=== PATIENT | male | born 1965 | race Caucasian/White ===

== ENCOUNTER 2016-12-26 15:46 | Emergency (ER) | payer BC ==
[2016-12-26 16:11] VITALS: RESP 18
[2016-12-26] MEDS ORDERED: HYDROcodone/APAP 7.5-325MG 1 EACH TAB PO ONE (17:08)
--- NOTE | 2016-12-26 18:04 | XR ---
EXAMINATION TYPE: XR knee complete LT DATE OF EXAM: 12/26/2016 CLINICAL HISTORY: Pain in left knee. TECHNIQUE: Three views of the left knee are obtained. COMPARISON: None. FINDINGS: There is a large suprapatellar joint effusion which has increased density which could be du e to lipohemarthrosis. There is mineralized focus along the superior aspect of the patella which coul d relate to a small avulsion fracture or calcific tendinitis at the insertion of quadriceps tendon. J oint spacing is maintained in all 3 compartments. Soft tissue structures demonstrates some soft tissu e swelling superior to the patella. IMPRESSION: Large hyperdense suprapatellar joint effusion which could be due to a lipohemarthrosis. There is also a mineralized focus along the superior aspect of the patella which could relate to an avulsion fract ure or calcific tendinitis.
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
[2016-12-26 18:43] VITALS: BP 124/74; PULSE 71; TEMP 98
== END 2016-12-26 18:43 | disposition home or self-care (01) ==
LOC: EC 15:46
DX: S82.002A Unspecified fracture of left patella, initial encounter for closed fracture (principal); M25.462 Effusion, left knee; F17.200 Nicotine dependence, unspecified, uncomplicated; Z95.5 Presence of coronary angioplasty implant and graft; Z79.82 Long term (current) use of aspirin; Z79.899 Other long term (current) drug therapy; W23.0XXA Caught, crushed, jammed, or pinched between moving objects, initial encounter; Y93.55 Activity, bike riding
CPT/HCPCS: 99283 ×2; 73562; L1830

== ENCOUNTER 2017-04-14 19:53 | Emergency (ER) | payer BC ==
[2017-04-14 19:58] VITALS: BP 148/87; PULSE 67; RESP 20; TEMP 97.8
[2017-04-14] MEDS ORDERED: cefTRIAXone 1,000 MG VIAL (IM USE) IM STA (22:17)
--- NOTE | 2017-04-14 22:24 | ED ---
General Adult HPI - General Chief complaint: Wound/Laceration Stated complaint: foot infection/sore leg Time Seen by Provider: 04/14/17 22:07 Source: patient, RN notes reviewed Mode of arrival: ambulatory Limitations: no limitations - History of Present Illness Initial comments: This is a 51-year-old male who presents to the emergency department with chief complaint of left foot sore. Patient states that he developed a sore on the bottom of his left foot one week ago. He is unsure if he had any injury to that foot. He states that he developed a pocket of pus which he has drained on his own. He denies any fevers or chills. He denies any history of MRSA. He states he does not have diabetes. He does have hypertension and a defibrillator for hypertrophic cardiomyopathy. Patient states he presented to the emergency department this evening because he has noticed some streaking of redness up his left foot. Denies chest pain, shortness of breath, abdominal pain, nausea or vomiting, diarrhea or constipation. - Related Data Home Medications Medication Instructions Recorded Confirmed Aspirin 325 mg PO DAILY 04/23/14 06/03/14 Metoprolol Succinate (ER) [Toprol 150 mg PO DAILY 04/23/14 06/03/14 XL] amLODIPine [Norvasc] 5 mg PO DAILY 04/23/14 06/03/14 lamoTRIgine [LaMICtal] 100 mg PO DAILY 04/23/14 06/03/14 Carisoprodol [Soma] 350 mg PO TID 06/04/14 06/04/14 Hydrocodone/Acetaminophen [Vicodin 1 each PO Q8HR PRN 06/04/14 06/04/14 Es 7.5-300 mg Tablet] Ibuprofen [Motrin] 800 mg PO Q8HR PRN 06/04/14 06/04/14 Previous Rx's Medication Instructions Recorded Cephalexin [Keflex] 500 mg PO Q12HR #20 cap 04/14/17 Sulfamethox-Tmp 800-160Mg [Bactrim 1 tab PO Q12HR #20 tab 04/14/17 DS 800-160 mg] Allergies Allergy/AdvReac Type Severity Reaction Status Date / Time No Known Allergies Allergy Verified 04/14/17 19:57 Review of Systems ROS Statement: Those systems with pertinent positive or pertinent negative responses have been documented in the HPI. ROS Other: All systems not noted in ROS Statement are negative. Past Medical History Past Medical History: Hyperlipidemia Additional Past Medical History / Comment(s): see Dr Brewer H&P, defibulator, HCM History of Any Multi-Drug Resistant Organisms: None Reported Past Surgical History: Heart Catheterization, Orthopedic Surgery Additional Past Surgical History / Comment(s): heart cath Apr 2014 Past Anesthesia/Blood Transfusion Reactions: No Reported Reaction Past Psychological History: No Psychological Hx Reported Smoking Status: Current some day smoker Past Alcohol Use History: Occasional Past Drug Use History: None Reported General Exam - General Exam Comments Initial Comments: General: Awake and alert, well-developed; in no apparent distress. HEENT: Head atraumatic, normocephalic. Pupils are equal, round and reactive to light. Extraocular movements intact. Oropharynx moist without erythema or exudate. Neck: Supple. Normal ROM. Cardiovascular: Regular rate and rhythm. No murmurs, rubs or gallops. Chest symmetrical. Respiratory: Lungs clear to auscultation bilaterally. No wheezes, rales or rhonchi. Normal respiratory effort with no use of accessory muscles. Musculoskeletal: Normal ROM, no tenderness bilateral upper and lower extremities. Ambulating normally. Skin: [place], warm and dry. Pocket of blood between digits 3 and 4 on the left foot. No active drainage at this time. There is surrounding erythema and tenderness with some streaking up dorsal aspect mid left foot. Neurological: Alert and oriented x3. CN II-XII grossly intact. Speech is fluent and answers are appropriate. No focal neuro deficits. Psychiatric: Normal mood and affect. No overt signs of depression or anxiety noted. Limitations: no limitations Course Vital Signs 04/14/17 19:55 Temperature 97.8 F Pulse Rate 67 Respiratory 20 Rate Blood Pressure 148/87 O2 Sat by Pulse 98 Oximetry Medical Decision Making - Medical Decision Making This is a 51-year-old male who presents to the emergency department with chief complaint of left foot infection. Patient has no history of diabetes. Denies a history of MRSA. He states that he has had a left foot sore for the past one week but is unsure of any injury or trauma to the foot. Denies fever or chills. X-ray of left foot revealed no evidence for foreign body and no evidence for osteomyelitis. Patient was given IM Rocephin while in the emergency department. Recommended outpatient treatment with antibiotics. Educated patient that if he develops any fevers or if the redness spreads that he is to return to the emergency department. Recommended warm soaks at home. Patient is in no acute distress and will be discharged home. He is in agreement with plan and voices understanding. All questions were answered. - Radiology Data Radiology results: report reviewed X-ray left foot findings: I see no fracture nor dislocation. Metatarsals are intact. Joint spaces are fairly normal. There are no erosions. Fourth toe is intact. Impression: Negative left foot exam. No sign of osteomyelitis. Disposition Clinical Impression: Cellulitis of left foot Disposition: HOME SELF-CARE Condition: Good Instructions: Cellulitis (ED), Abscess (ED) Additional Instructions: Please take medications as prescribed. Please return to the emergency department if you develop any fevers or redness continues to spread. Please follow up with primary care provider within 1-2 days. Return to emergency department if symptoms should worsen or any concerns arise. Prescriptions: Cephalexin [Keflex] 500 mg PO Q12HR #20 cap Sulfamethox-Tmp 800-160Mg [Bactrim DS 800-160 mg] 1 tab PO Q12HR #20 tab Referrals: Reji Hayward MD [Primary Care Provider] - 1-2 days Time of Disposition: 22:48
--- NOTE | 2017-04-14 22:42 | XR ---
EXAMINATION TYPE: XR foot complete LT DATE OF EXAM: 04/14/2017 COMPARISON: NONE HISTORY: Redness and swelling TECHNIQUE: 3 views FINDINGS: I see no fracture nor dislocation. Metatarsals are intact. Joint spaces are fairly normal. There are no erosions. Fourth toe is intact. IMPRESSION: Negative left foot exam. No sign of osteomyelitis.
== END 2017-04-14 22:57 | disposition home or self-care (01) ==
LOC: EC 19:53
DX: L03.116 Cellulitis of left lower limb (principal); I10 Essential (primary) hypertension; F17.200 Nicotine dependence, unspecified, uncomplicated; Z95.5 Presence of coronary angioplasty implant and graft; Z95.810 Presence of automatic (implantable) cardiac defibrillator; Z79.82 Long term (current) use of aspirin; Z79.899 Other long term (current) drug therapy
CPT/HCPCS: 99283; 96372; 73630; J0696

== ENCOUNTER 2017-04-15 17:00 | Emergency (ER) | payer BC ==
[2017-04-15 17:08] VITALS: RESP 18
[2017-04-15] MEDS ORDERED: VANCOMYCIN IV PER PHARMACY 1 EACH MISC MISCELLANE PRN (17:51)
[2017-04-15] MEDS ORDERED: VANCOMYCIN 2,000 MG in SODIUM CHLORIDE 0.9% 500 ML IVPB STA (17:52)
--- NOTE | 2017-04-15 17:55 | ED ---
Skin/Abscess/FB HPI - General Chief complaint: Skin/Abscess/Foreign Body Stated complaint: Pain in Left Leg Time Seen by Provider: 04/15/17 17:37 Source: patient, RN notes reviewed, old records reviewed Mode of arrival: ambulatory Limitations: no limitations - History of Present Illness Initial comments: This is a 51-year-old male with left foot pain and swelling for approximately 12 days. He reports that he was seen in emergency department yesterday given IM antibiotics and discharged home with 2 prescriptions. He reports he started to take them for left foot cellulitis that he is concerned because he noticed a swelling in his left groin. Patient reports that he noticed some bleeding around the fourth and fifth toe. - Related Data Home Medications Medication Instructions Recorded Confirmed Metoprolol Succinate (ER) [Toprol 150 mg PO DAILY 04/23/14 04/15/17 XL] amLODIPine [Norvasc] 5 mg PO DAILY 04/23/14 04/15/17 Previous Rx's Medication Instructions Recorded Cephalexin [Keflex] 500 mg PO Q12HR #20 cap 04/14/17 Sulfamethox-Tmp 800-160Mg [Bactrim 1 tab PO Q12HR #20 tab 04/14/17 DS 800-160 mg] Acetaminophen-Codeine 300-30mg 1 tab PO Q4H PRN #20 tablet 04/15/17 [Tylenol #3] Allergies Allergy/AdvReac Type Severity Reaction Status Date / Time No Known Allergies Allergy Verified 04/15/17 18:02 Review of Systems ROS Statement: Those systems with pertinent positive or pertinent negative responses have been documented in the HPI. ROS Other: All systems not noted in ROS Statement are negative. Past Medical History Past Medical History: Hyperlipidemia Additional Past Medical History / Comment(s): see Dr Brewer H&P, defibulator, HCM History of Any Multi-Drug Resistant Organisms: None Reported Past Surgical History: Heart Catheterization, Orthopedic Surgery Additional Past Surgical History / Comment(s): heart cath Apr 2014 Past Anesthesia/Blood Transfusion Reactions: No Reported Reaction Past Psychological History: No Psychological Hx Reported Smoking Status: Current some day smoker Past Alcohol Use History: Occasional Past Drug Use History: None Reported General Exam - General Exam Comments Initial Comments: This is a 51-year-old male. No acute distress. Limitations: no limitations General appearance: alert, in no apparent distress Head exam: Present: atraumatic, normocephalic, normal inspection Eye exam: Present: normal appearance, PERRL, EOMI. Absent: scleral icterus, conjunctival injection, periorbital swelling ENT exam: Present: normal exam, mucous membranes moist Neck exam: Present: normal inspection. Absent: tenderness, meningismus, lymphadenopathy Respiratory exam: Present: normal lung sounds bilaterally. Absent: respiratory distress, wheezes, rales, rhonchi, stridor Cardiovascular Exam: Present: regular rate, normal rhythm, normal heart sounds. Absent: systolic murmur, diastolic murmur, rubs, gallop, clicks GI/Abdominal exam: Present: soft, normal bowel sounds. Absent: distended, tenderness, guarding, rebound, rigid Extremities exam: Present: normal inspection, full ROM, normal capillary refill. Absent: tenderness, pedal edema, joint swelling, calf tenderness Left 1 - mild erythema 1 - area of blood blister Back exam: Present: normal inspection Neurological exam: Present: alert, oriented X3, CN II-XII intact Psychiatric exam: Present: normal affect, normal mood Skin exam: Present: warm, dry, intact, normal color. Absent: rash Course Vital Signs 04/15/17 04/15/17 17:05 20:37 Temperature 98.9 F 97.6 F Pulse Rate 69 86 Respiratory 18 18 Rate Blood Pressure 160/89 146/79 O2 Sat by Pulse 98 98 Oximetry Medical Decision Making - Medical Decision Making patient iced for reevaluation due to swelling and pain on his left dorsum of his foot in between his fourth and third toe. He reports that he is noticed a blister and pain is worsening in his left toes having also is concerned of some swelling on his groin. This is a inguinal lymph node. He did have an ultrasound was negative for DVT. White blood cell count is within normal limits. I discussed with the patient on IV antibiotics of vancomycin due to likely cellulitis. They do relate that he possibly stepped on glass [place] 12 days ago and there may be a glass shard in between the toes. One view of the foot x-ray does show evidence of a possible foreign body at this time near patient's location of pain. I did attempt to try to locate any kind of foreign body vitamin D breathing initially her skin over the dorsum of the foot. Unable to locate any foreign by this time. I discussed that he is not technically failed outpatient treatment if he has had only 2 doses of antibiotics. Discussed with Dr. Mullins. He is also examined the patient and agrees with treatment plan. We will have the patient follow-up with podiatry, and advised him to stay take the antibiotics as prescribed. We'll discharge the patient with pain medicine as well. All questions were answered and return parameters were discussed. - Lab Data Result diagrams: 04/15/17 18:06 04/15/17 18:06 Lab Results 04/15/17 04/15/17 Range/Units 18:06 18:06 WBC 11.9 H (3.8-10.6) k/uL RBC 5.52 (4.30-5.90) m/uL Hgb 16.3 (13.0-17.5) gm/dL Hct 49.4 (39.0-53.0) % MCV 89.5 (80.0-100.0) fL MCH 29.5 (25.0-35.0) pg MCHC 32.9 (31.0-37.0) g/dL RDW 12.8 (11.5-15.5) % Plt Count 262 (150-450) k/uL Neutrophils % 67 % Lymphocytes % 21 % Monocytes % 5 % Eosinophils % 5 % Basophils % 1 % Neutrophils # 7.9 H (1.3-7.7) k/uL Lymphocytes # 2.5 (1.0-4.8) k/uL Monocytes # 0.6 (0-1.0) k/uL Eosinophils # 0.6 (0-0.7) k/uL Basophils # 0.1 (0-0.2) k/uL Sodium 140 (137-145) mmol/L Potassium 4.3 (3.5-5.1) mmol/L Chloride 105 (98-107) mmol/L Carbon Dioxide 23 (22-30) mmol/L Anion Gap 12 mmol/L BUN 13 (9-20) mg/dL Creatinine 0.83 (0.66-1.25) mg/dL Est GFR (MDRD) Af Amer >60 (>60 ml/min/1.73 sqM) Est GFR (MDRD) Non-Af >60 (>60 ml/min/1.73 sqM) Glucose 114 H (74-99) mg/dL Calcium 10.2 (8.4-10.2) mg/dL Total Bilirubin 0.4 (0.2-1.3) mg/dL AST 40 (17-59) U/L ALT 88 H (21-72) U/L Alkaline Phosphatase 78 (38-126) U/L Total Protein 7.6 (6.3-8.2) g/dL Albumin 4.8 (3.5-5.0) g/dL - Radiology Data Radiology results: report reviewed X-ray shows no acute osseous normality. Follow-up exam can be performed in 7- 10 days from acute trauma for continued pain. Disposition Clinical Impression: Cellulitis of left foot, Soft tissues foreign body Disposition: HOME SELF-CARE Condition: Good Instructions: Soft Tissue Foreign Body (ED) Additional Instructions: Patient advised to do warm foot soaks. Follow up with sales operations. Return if the area of redness or swelling worsens. Take the antibiotics as prescribed previously. He can take the pain medicine as well as Motrin for pain. Return to the emergency department if any alarming signs or symptoms occur. Prescriptions: Acetaminophen-Codeine 300-30mg [Tylenol #3] 1 tab PO Q4H PRN #20 tablet PRN Reason: Pain Referrals: Reji Hayward MD [Primary Care Provider] - 1-2 days Ranjeet Figueroa DPM [STAFF PHYSICIAN] - 1-2 days Robert Sparks DPM [STAFF PHYSICIAN] - 1-2 days Time of Disposition: 20:06
[2017-04-15 18:23] LABS: Basophils # (A) 0.1 k/uL (0-0.2); Basophils % (A) 1 %; Eosinophils # (A) 0.6 k/uL (0-0.7); Eosinophils % (A) 5 %; HCT 49.4 % (39.0-53.0); HGB 16.3 gm/dL (13.0-17.5); Lymphocytes # (A) 2.5 k/uL (1.0-4.8); Lymphocytes % (A) 21 %; MCH 29.5 pg (25.0-35.0); MCHC 32.9 g/dL (31.0-37.0); MCV 89.5 fL (80.0-100.0); Mean Platelet Volume 6.5; Monocytes # (A) 0.6 k/uL (0-1.0); Monocytes % (A) 5 %; Neutrophils # (A) 7.9 k/uL (1.3-7.7); Neutrophils % (A) 67 %; Platelet Count 262 k/uL (150-450); RBC 5.52 m/uL (4.30-5.90); RDW 12.8 % (11.5-15.5); WBC 11.9 k/uL (3.8-10.6)
[2017-04-15 18:27] LABS: ALT 88 U/L (21-72); AST 40 U/L (17-59); Albumin 4.8 g/dL (3.5-5.0); Alkaline Phosphatase 78 U/L (38-126); Anion Gap 12 mmol/L; Blood Urea Nitrogen 13 mg/dL (9-20); Calcium 10.2 mg/dL (8.4-10.2); Carbon Dioxide 23 mmol/L (22-30); Chloride 105 mmol/L (98-107); Glucose 114 mg/dL (74-99); Potassium 4.3 mmol/L (3.5-5.1); Sodium 140 mmol/L (137-145); Total Bilirubin 0.4 mg/dL (0.2-1.3); Total Protein 7.6 g/dL (6.3-8.2)
--- NOTE | 2017-04-15 18:59 | XR ---
EXAMINATION TYPE: XR foot complete LT DATE OF EXAM: 04/15/2017 COMPARISON: 04/14/2017, previous day HISTORY: Pain swelling redness TECHNIQUE: Three-view left foot FINDINGS: There is deviation of the distal phalanx of the third digit medially. No acute fractures ar e identified. Some mild soft tissue swelling over the fourth digit may be present. IMPRESSION: 1. No acute osseous abnormality. 2. Follow-up exams can be performed 7-10 days from acute trauma for continued pain.
[2017-04-15] MEDS ORDERED: SODIUM CHLORIDE 0.9% 1,000 ML IV ONE (19:35)
[2017-04-15] MEDS ORDERED: SODIUM CHLORIDE 0.9% 1,000 ML IV SCH (19:45)
--- NOTE | 2017-04-15 19:46 | US ---
EXAMINATION TYPE: US venous doppler duplex LE LT DATE OF EXAM: 04/15/2017 7:16 PM COMPARISON: NONE CLINICAL HISTORY: Pain. Pt has infection and pain left foot, now has pain and lump left groin/ No jose francisco or DVT, not on blood thinners SIDE PERFORMED: Left TECHNIQUE: The lower extremity deep venous system is examined utilizing real time linear array sonog [place] with graded compression, doppler sonography and color-flow sonography. VESSELS IMAGED: External Iliac Vein (EIV) Common Femoral Vein Deep Femoral Vein Greater Saphenous Vein * Femoral Vein Popliteal Vein Small Saphenous Vein * Proximal Calf Veins (* superficial vessels) Left Leg: Negative for DVT, left groin lymph node= 1.3 cm AP/ Pt unable to tolerate left groin compr essions IMPRESSION: 1. Left lower extremity negative for deep venous thrombosis. 2. Enlarged left inguinal adenopathy with a transverse dimension of 1.3 cm.
[2017-04-15] MEDS ORDERED: ACET/COD 300 MG/30 MG STARTER PACK 6 TAB BTL PO STA (20:06)
[2017-04-15 20:38] VITALS: BP 146/79; PULSE 86; TEMP 97.6
== END 2017-04-15 20:38 | disposition home or self-care (01) ==
LOC: EC 17:00
DX: L03.116 Cellulitis of left lower limb (principal); M79.5 Residual foreign body in soft tissue; M79.89 Other specified soft tissue disorders; F17.200 Nicotine dependence, unspecified, uncomplicated; Z79.899 Other long term (current) drug therapy; Z53.8 Procedure and treatment not carried out for other reasons
CPT/HCPCS: 36415; 80053; 85025; 87040; 87070; 87205; 73630; 93971; 99284; 96365; 96366; J3370; 87077; 87186

== ENCOUNTER 2018-03-15 08:41 | Day surgery (SDC) | payer BC ==
--- NOTE | 2018-03-15 07:34 | P.GSHP ---
History of Present Illness H&P Date: 03/15/18 CHIEF COMPLAINT: Colon screen HISTORY OF PRESENT ILLNESS: The patient is a 52-year-old male who presents for colon screen. Lower endoscopy was offered for further evaluation and management. PAST MEDICAL HISTORY: Please see list. PAST SURGICAL HISTORY: Please see list. MEDICATIONS: Please see list. ALLERGIES: Please see list. SOCIAL HISTORY: No illicit drug use FAMILY HISTORY: No reports of Crohn disease or ulcerative colitis. REVIEW OF ORGAN SYSTEMS: CONSTITUTIONAL: No reports of fevers or chills. PHYSICAL EXAM: VITAL SIGNS: Stable GENERAL: Well-developed pleasant in no acute distress. HEENT: No scleral icterus. Extraocular movements grossly intact. Moist buccal mucosa. NECK: Supple without lymphadenopathy. CHEST: Unlabored respirations. Equal bilateral excursions. CARDIOVASCULAR: Regular rate and rhythm. Distal 2+ pulses. ABDOMEN: Soft, nontender, nondistended. MUSCULOSKELETAL: No clubbing, cyanosis, or edema. ASSESSMENT: 1. Colon screen. PLAN: 1. Recommend proceeding with a lower endoscopy Past Medical History Past Medical History: Hyperlipidemia Additional Past Medical History / Comment(s): see Dr Brewer H&P. HYPERTENSIVE CARDIOMYOPATHY (HCM). History of Any Multi-Drug Resistant Organisms: None Reported Past Surgical History: AICD, Heart Catheterization Additional Past Surgical History / Comment(s): heart cath Apr 2014. AID ( [employer]) PER DR. BREWER NOTES Past Anesthesia/Blood Transfusion Reactions: No Reported Reaction Type of Cardiac Device: AICD Device Placement Date:: 06/03/2014 Past Psychological History: No Psychological Hx Reported Smoking Status: Current some day smoker Past Alcohol Use History: Occasional Additional Past Alcohol Use History / Comment(s): SMOKES ABOUT .25 PPD, 30 YRS. Past Drug Use History: None Reported Medications and Allergies Home Medications Medication Instructions Recorded Confirmed Type Metoprolol Succinate (ER) [Toprol 150 mg PO QAM 04/23/14 03/10/18 History XL] amLODIPine [Norvasc] 5 mg PO QAM 04/23/14 03/10/18 History Allergies Allergy/AdvReac Type Severity Reaction Status Date / Time No Known Allergies Allergy Verified 03/10/18 12:31
[~2018-03-15 08:41] MED LIST: LACTATED RINGERS 1,000 ML IV SCH; LIDOCAINE 1% 20 ML VIAL (10MG/ML) FOR IV START INTRADERMA PRN
[2018-03-15 09:00] VITALS: RESP 18; TEMP 98
[2018-03-15] MEDS ORDERED: LACTATED RINGERS 1,000 ML IV ONE (09:10)
[2018-03-15] MEDS ORDERED: PROPOFOL 10 MG/ML 20 ML VIAL IV ONE (09:27)
[2018-03-15 10:02] VITALS: PULSE 63
--- NOTE | 2018-03-15 10:03 | P.PCN ---
Date of Procedure: 03/15/18 Description of Procedure: PREOPERATIVE DIAGNOSIS: Colonoscopy screening, first POSTOPERATIVE DIAGNOSIS: Colonoscopy screening, first Multiple tubular adenomas throughout the colon. OPERATION: Colonoscopy to the ileocecal valve and appendiceal orifice. Colonoscopy with hot snare polypectomy Colonoscopy with cold forceps biopsy SURGEON: Katty Redd MD. ANESTHESIA: MAC. INDICATIONS: The patient is a 52-year-old male who presents for his first colonoscopy screening. Benefits and risks were described and informed consent was obtained. DESCRIPTION OF PROCEDURE: The patient had undergone Gatorade, MiraLAX and Dulcolax prep. He had been brought into the operating room and laid in the left lateral decubitus position. After adequate intravenous sedation, the rectum was examined with 2% lidocaine jelly. No external hemorrhoids were encountered. The rectal tone was within normal limits. The prostate was smooth and without abnormality. No lesions were palpated in the rectal vault. An Olympus colonoscope was advanced until the ileocecal valve and appendiceal orifice were clearly viewed. The prep was fair with visualization of the mucosal folds. The scope was removed with visualization of each mucosal fold. No scattered diverticulosis was encountered. Colonic polyps were found and cold forcep biopsy or snare polypectomy. No evidence of focal colitis was found. Retroflexion of the scope demonstrated no internal hemorrhoids without active bleeding or inflammation. The colon was desufflated. The patient had tolerated the procedure well. Withdrawal time was over 6 minutes. FINDINGS: No internal hemorrhoids No external hemorrhoids No arteriovenous malformations No sigmoid diverticulosis Removal of 2 polyps: - Snare polypectomy 35 cm from the anal verge, 7 mm tubulovillous adenoma polyp , sigmoid colon - Cold forceps biopsy at 60 cm from the anal verge, 3 mm polyp, distal transverse colon No focal colitis. RECOMMENDATIONS: Recommend repeat colonoscopy in 3 years, 2021 Plan - Discharge Summary Discharge Rx Participant: No New Discharge Prescriptions: No Action Metoprolol Succinate (ER) [Toprol XL] 150 mg PO QAM amLODIPine [Norvasc] 5 mg PO QAM Discharge Medication List Metoprolol Succinate (ER) [Toprol XL] 150 mg PO QAM 04/23/14 [History] amLODIPine [Norvasc] 5 mg PO QAM 04/23/14 [History]
[2018-03-15 10:25] VITALS: BP 166/89
== END 2018-03-15 10:35 | disposition home or self-care (01) ==
LOC: ORWHC2ENDO 08:41
PROVIDERS: ATTEND Surgery Plastic and Reconstructive Surgery
DX: Z12.11 Encounter for screening for malignant neoplasm of colon (principal); D12.3 Benign neoplasm of transverse colon; K63.5 Polyp of colon; E78.5 Hyperlipidemia, unspecified; I11.9 Hypertensive heart disease without heart failure; I43 Cardiomyopathy in diseases classified elsewhere; F17.210 Nicotine dependence, cigarettes, uncomplicated; Z79.899 Other long term (current) drug therapy; Z95.810 Presence of automatic (implantable) cardiac defibrillator
CPT/HCPCS: 88305; 45385; 45380; J2704

== ENCOUNTER 2018-05-26 17:01 | Observation (INO) | payer BC ==
[2018-05-26] MEDS ORDERED: ASPIRIN 81 MG PO STA (17:27)
[2018-05-26] MEDS ORDERED: IPRATROPIUM-ALBUTEROL 3 ML NEB INHALATION STA (17:28)
--- NOTE | 2018-05-26 17:30 | ED ---
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 He states he has pain and goes down his left arm. He currently is on no blood thinners. He is a smoker. No diagnosis of COPD or asthma however he states. He is not on any type of inhaler or nebulizer treatments. MD Complaint: chest pain, other - Related Data Home Medications Medication Instructions Recorded Confirmed Metoprolol Succinate (ER) [Toprol 150 mg PO DAILY 04/23/14 05/26/18 XL] amLODIPine [Norvasc] 5 mg PO DAILY 04/23/14 05/26/18 Carisoprodol [Soma] 350 mg PO DAILY PRN 05/26/18 05/26/18 HYDROcodone/APAP 7.5-325MG [[place] 1 tab PO DAILY PRN 05/26/18 05/26/18 7.5-325] Ibuprofen [Motrin] 800 mg PO TID PRN 05/26/18 05/26/18 Allergies Allergy/AdvReac Type Severity Reaction Status Date / Time No Known Allergies Allergy Verified 05/26/18 17:56 Review of Systems ROS Statement: Those systems with pertinent positive or pertinent negative responses have been documented in the HPI. ROS Other: All systems not noted in ROS Statement are negative. EKG Findings - EKG Results: EKG: interpreted by ERMD (EKG shows sinus rhythm with occasional PVCs rate was 85893 QRS duration 108 QT since QTC 386/436 T-wave abnormalities are noted. Do appear to be present and monitor strips dated 06/03/14 through ) Past Medical History Past Medical History: Hyperlipidemia Additional Past Medical History / Comment(s): see Dr Brewer H&P. HYPERTENSIVE CARDIOMYOPATHY (HCM). History of Any Multi-Drug Resistant Organisms: None Reported Past Surgical History: AICD, Heart Catheterization Additional Past Surgical History / Comment(s): heart cath Apr 2014. AID ([employer]) PER DR. BREWER NOTES Past Anesthesia/Blood Transfusion Reactions: No Reported Reaction Type of Cardiac Device: AICD Device Placement Date:: 06/03/2014 Past Psychological History: No Psychological Hx Reported Smoking Status: Current some day smoker Past Alcohol Use History: Occasional Past Drug Use History: None Reported General Exam - General Exam Comments Initial Comments: This is a well-developed well-nourished awake alert oriented times 3 male Limitations: no limitations General appearance: alert, anxious Head exam: Present: atraumatic, normocephalic, normal inspection Eye exam: Present: normal appearance, PERRL, EOMI. Absent: scleral icterus, conjunctival injection, periorbital swelling ENT exam: Present: normal exam, mucous membranes moist Neck exam: Present: normal inspection, full ROM, other. Absent: tenderness, meningismus, lymphadenopathy Respiratory exam: Present: decreased breath sounds (Markedly diminished breath sounds especially on the right compared to the left). Absent: respiratory distress, wheezes, rales, rhonchi, stridor Cardiovascular Exam: Present: regular rate, normal rhythm, normal heart sounds. Absent: systolic murmur, diastolic murmur, rubs, gallop, clicks GI/Abdominal exam: Present: soft, normal bowel sounds. Absent: distended, tenderness, guarding, rebound, rigid Extremities exam: Present: normal inspection, full ROM, normal capillary refill. Absent: tenderness, pedal edema, joint swelling, calf tenderness Back exam: Present: normal inspection Neurological exam: Present: alert, oriented X3, CN II-XII intact Psychiatric exam: Present: normal affect, normal mood Skin exam: Present: warm, dry, intact, normal color. Absent: rash Course Vital Signs 05/26/18 05/26/18 05/26/18 17:14 17:38 18:08 Temperature 99.1 F Pulse Rate 77 68 Pulse Rate [ 76 Spinning Lathe Operator Automatic ] Respiratory 16 14 Rate Blood Pressure 161/94 O2 Sat by Pulse 96 Oximetry 05/26/18 18:15 Temperature Pulse Rate 68 Pulse Rate [ Spinning Lathe Operator Automatic ] Respiratory Rate Blood Pressure O2 Sat by Pulse Oximetry - Reevaluation(s) Reevaluation #1: 05/26/18 19:20 I did reevaluate patient on several occasions he was breathing better but still having twinges of left arm pain. Chest Pain MDM - MDM I did review the imaging and report no acute findings. Patient is still having episodes of pain radiating down his left arm. He is still having some twinges of shortness of breath. I did discuss [employer] him and his family and with Dr. Ho patient will be admitted with cardiology consultation. Initial cardiac enzymes are negative. Critical Care Time Critical Care Time: Yes Critical Care Time: 31 minutes critical care time which was initial presentation with history phys ical labs x-rays multiple reevaluation the patient. Review of old charting was available. Several discussions with the patient family members discussion with the admitting physician, Dr. Ho. Admission orders and documentation of the above Disposition Clinical Impression: Unstable angina pectoris, Acute coronary syndrome, Bronchospasm, acute Disposition: ADMITTED IP TO THIS [facility] Condition: Fair Referrals: Reji Hayward MD [Primary Care Provider] - 1-2 days
[2018-05-26 17:46] LABS: Basophils # (A) 0.1 k/uL (0-0.2); Basophils % (A) 1 %; Eosinophils # (A) 0.3 k/uL (0-0.7); Eosinophils % (A) 5 %; HCT 48.3 % (39.0-53.0); HGB 16.2 gm/dL (13.0-17.5); Lymphocytes # (A) 1.1 k/uL (1.0-4.8); Lymphocytes % (A) 17 %; MCH 29.5 pg (25.0-35.0); MCHC 33.6 g/dL (31.0-37.0); MCV 87.8 fL (80.0-100.0); Mean Platelet Volume 6.2; Monocytes # (A) 0.7 k/uL (0-1.0); Monocytes % (A) 11 %; Neutrophils # (A) 3.8 k/uL (1.3-7.7); Neutrophils % (A) 62 %; Platelet Count 210 k/uL (150-450); RDW 13.2 % (11.5-15.5); WBC 6.1 k/uL (3.8-10.6)
[2018-05-26 17:58] LABS: ALT 112 U/L (21-72); AST 61 U/L (17-59); Albumin 4.8 g/dL (3.5-5.0); Alkaline Phosphatase 74 U/L (38-126); Anion Gap 12 mmol/L; Blood Urea Nitrogen 16 mg/dL (9-20); Calcium 9.7 mg/dL (8.4-10.2); Carbon Dioxide 22 mmol/L (22-30); Chloride 105 mmol/L (98-107); Glucose 127 mg/dL (74-99); Magnesium 1.8 mg/dL (1.6-2.3); Potassium 4.2 mmol/L (3.5-5.1); Sodium 139 mmol/L (137-145); Total Bilirubin 0.7 mg/dL (0.2-1.3); Total Protein 7.7 g/dL (6.3-8.2)
[2018-05-26 18:09] LABS: D-Dimer 0.59 mg/L FEU (<0.60); INR 1.1 (<1.2); Partial Thromboplastin Time 26.7 sec (22.0-30.0); Prothrombin Time 11.6 sec (9.0-12.0)
--- NOTE | 2018-05-26 18:47 | XR ---
EXAMINATION: XR chest 3V DATE AND TIME: 05/26/2018 6:21 PM CLINICAL INDICATION: PHH; Chest Pain TECHNIQUE: 2 frontal radiographs and one lateral radiograph COMPARISON: 06/04/2014 FINDINGS: The lungs are clear. The pleural spaces are negative. Cardiac pacemaker and EKG leads. The cardiac silhouette is mildly enlarged. The remainder of the medi astinal silhouette is unremarkable. The skeletal structures and soft tissues are negative for acute findings. IMPRESSION: NO ACUTE PROCESS.
[2018-05-26] MEDS ORDERED: NITROGLYCERIN SL TABS 0.4 MG TAB SUBLINGUAL PRN (19:24)
[2018-05-26] MEDS ORDERED: HEPARIN SODIUM,PORCINE 5,000 UNIT/ML 1 ML VIAL IV ONE (19:24)
[2018-05-26] MEDS ORDERED: IBUPROFEN 800 MG TAB PO PRN (19:27)
[2018-05-26] MEDS ORDERED: NITROGLYCERIN OINT 1 INCH/GM PACKET TOPICAL STA (19:27)
[2018-05-26] MEDS ORDERED: CARISOPRODOL 350 MG TAB PO PRN (19:27)
[2018-05-26] MEDS ORDERED: HYDROcodone/APAP 7.5-325MG 1 EACH TAB PO PRN (19:27)
[2018-05-26] MEDS ORDERED: HEPARIN SOD,PORK IN 0.45% NACL 25,000 UNIT in 0.45% NACL 1 250ML.BAG IV SCH (19:30)
[2018-05-26] MEDS ORDERED: ACETAMINOPHEN TAB 500 MG TAB PO STA (20:30)
[2018-05-26 21:40] VITALS: BMI 28.2
[2018-05-27] MEDS: NITROGLYCERIN OINT 1 INCH/GM PACKET TOPICAL SCH ×4 (01:18→16:37)
[2018-05-27 03:26] LABS: Cholesterol 174 mg/dL (<200); HDL Cholesterol 32 mg/dL (40-60); LDL Cholesterol,Calculated 103 mg/dL (0-99); Triglycerides 195 mg/dL (<150)
[2018-05-27] MEDS: HEPARIN SODIUM,PORCINE 5,000 UNIT/ML 1 ML VIAL IV PRN ×2 (03:44→10:37)
[2018-05-27] MEDS: amLODIPine 5 MG TAB PO SCH (08:31)
[2018-05-27] MEDS: METOPROLOL SUCCINATE (ER) 50 MG TAB.ER.24H PO SCH (08:31)
[2018-05-27] MEDS ORDERED: ASPIRIN 325 MG TAB PO SCH (09:00)
[2018-05-27 09:22] LABS: HCT 48.7 % (39.0-53.0); HGB 16.2 gm/dL (13.0-17.5); MCH 29.7 pg (25.0-35.0); MCHC 33.3 g/dL (31.0-37.0); MCV 89.3 fL (80.0-100.0); Mean Platelet Volume 6.2; Platelet Count 187 k/uL (150-450); RBC 5.45 m/uL (4.30-5.90); RDW 13.4 % (11.5-15.5); WBC 5.2 k/uL (3.8-10.6)
[2018-05-27 09:29] LABS: Anion Gap 8 mmol/L; Blood Urea Nitrogen 15 mg/dL (9-20); Calcium 9.4 mg/dL (8.4-10.2); Carbon Dioxide 25 mmol/L (22-30); Chloride 104 mmol/L (98-107); Glucose 142 mg/dL (74-99); Potassium 4.5 mmol/L (3.5-5.1); Sodium 137 mmol/L (137-145)
[2018-05-27] MEDS ORDERED: ALBUTEROL NEBULIZED 2.5 MG/3 ML INHALATION PRN (09:33)
--- NOTE | 2018-05-27 10:28 | P.CRDCN ---
History of Present Illness Consult date: 05/27/18 Reason for Consult (text): as of breath and chest pain Chief complaint: shortness of breath and chest pain History of present illness: HISTORY OF PRESENT ILLNESS AND PLAN: This is a [52]-year-old [male] with history of hypertension, hypertrophic cardiomyopathy with defibrillator, current 1 pack per day smoker, occasional EtOH use and hyperlipidemia. Patient presents in the emergency department with complaints of [shortness of breath and sharp left arm pain/chest pain. Patient states left sided chest pain felt like a lightening bolt that went down his left arm. Patient states he has also had some lightheadedness and cough at home. Patient well-known to Dr. Brewer in office. Patient had recent stress test in office within normal limits. Patient currently resting in bed comfortably with no current complaints of chest pain, chest pressure or palpitations. Patient states shortness of breath remains with cough and sputum production. Patient currently febrile at 100.0. Patient's labs negative for the flu. D-dimer is negative. Patient continues to smoke one pack per day, no current plans for cessation]. SIGNIFICANT PAST MEDICAL HISTORY: [hypertension, hypertensive cardiomyopathy current defibrillator, current 1 pack per day smoker, occasional EtOH use and hyperlipidemia] PAST SURGICAL HISTORY: See list. EKG shows [sinus rhythm, PVCs, ], heart rate [75] bpm. Troponins mildly elevated x [0.025, 0.032, 0.031.]. SIGNIFICANT LABORATORY VALUES: [CBC, WNL. D-dimer, WNL. BMP = potassium 4.2, magnesium 1.8, otherwise WNL. Total Cholesterol 174, LDL 103, HDL 32. Triglycerides 195. Negative flu swab ]. Chest x-ray [within normal limits]. Most recent echo dated = [04/11/2017] indicates [EF 60%, severe concentric hypertrophy. Dynamic apex gradient resting 5 mmHg with Valsalva 9 mmHg.]. Most recent stress testing dated = [04/11/2017] indicates [conclusive EKG portion a sliding EKG abnormality. Mild LV systolic dysfunction secondary to cardiomyopathy without any ischemia.]. Most recent cardiac cath dated = [April 2014 - within normal limits coronary arteries. Apical hypertrophy left ventricle] REVIEW OF SYSTEMS: CONSTITUTIONAL: [Denies fever. Denies chills.] EYES: Denies blurred vision. [Denies blurred vision or vision changes. Denies ey e pain.] EARS, NOSE, MOUTH & THROAT: [Denies headache. Denies sore throat. Denies ear pain Denies hemoptysis.] CARDIOVASCULAR: [Denies chest pain. Complains of shortness of breath. Denies orthopnea. Denies PND. Denies palpitations.] RESPIRATORY: [Complains of cough with sputum and shortness of breath. ] GASTROINTESTINAL: [Denies abdominal pain or distention. Denies diarrhea. Denies constipation. Denies nausea. Denies vomiting.] MUSCULOSKELETAL: [Complains of myalgias.] INTEGUMENTARY: [Denies pruitis. Denies rash.] ENDOCRINE: [Complains of of fatigue. Denies weight change. Denies polydipsia. Denies polyurina Denies heat/cold intolerance.] GENITOURINARY:[ Denies burning, hematuria or urgency with micturation.] HEMATOLOGIC: [Denies history of anemia. Denies bleeding.] NEUROLOGIC: [Denies numbness. Denies tingling. Denies weakness.] PSYCHIATRIC: [Denies anxiety. Denies depression.] PHYSICAL EXAM: VITAL SIGNS: Stable. Pt febrile. GENERAL: Well developed, in no acute distress. HEENT: Head is atraumatic, normocephalic. Pupils are equal, round. Extra ocular movements intact. Mucous membranes moist. Neck supple. No JVD. No carotid bruit. No thyromegaly. LUNGS: Auscultation positive wheezes and scattered rhonchi. No rales No chest wall tenderness on palpation or with deep breathing. HEART: Regular rate and rhythm, no rubs or gallops. S1 and S2 heard. II/ systolic ejection murmur at left sternal border. ABDOMEN: Abdominal exam, WNL. Bowel sounds x4 quads. Soft, non-tender, without masses, organomegaly, or abdominal aorta enlargement. EXTREMITIES/VASCULAR: Extremities have easily palpable radial, femoral, dorsalis pedis and posterior tibial pulses. No cyanosis, calf tenderness. No BLE edema. NEUROLOGIC: Patient is awake, alert and oriented x3. No focal neurologic abnormalities. FINAL IMPRESSION: 1. [Upper respiratory infection/bronchitis vs COPD exacerbation]. 2. [Cardiomyopathy with defibrillator]. 3. [Hypertension]. 4. [Tobacco abuse, one pack per day]. 5. [hyperlipidemia]. PLAN: [Consult Pulmonology for possible COPD exacerbation. Doscontinue IV heparin. Start SQ heparin. No acute myocardial event. Repeat echocardiogram. Start albuterol treatments every 6 hours, when necessary. Continue all other current medication/medical regime. Will follow along, please call with questions or concerns. Heart Healthy diet. Thank you kindly for this consult.] Nurse Practitioner note has been reviewed by the Physician. Signing provider agrees with the documented findings, assessment and plan of care. Past Medical History Past Medical History: No Reported History Additional Past Medical History / Comment(s): see Dr Brewer H&P. HYPERTENSIVE CARDIOMYOPATHY (HCM),AICD (2014) History of Any Multi-Drug Resistant Organisms: None Reported Past Surgical History: AICD, Heart Catheterization Additional Past Surgical History / Comment(s): heart cath Apr 2014. AICD ([employer]) PER DR. BREWER NOTES Past Anesthesia/Blood Transfusion Reactions: No Reported Reaction Type of Cardiac Device: AICD Device Placement Date:: 06/03/2014 Past Psychological History: No Psychological Hx Reported Smoking Status: Current some day smoker Past Alcohol Use History: Occasional Additional Past Alcohol Use History / Comment(s): SMOKES ABOUT .25 PPD, 30 YRS. Past Drug Use History: None Reported - Past Family History Father Family Medical History: Diabetes Mellitus, Renal Disease Mother Family Medical History: No Reported History Medications and Allergies Home Medications Medication Instructions Recorded Confirmed Type Metoprolol Succinate (ER) [Toprol 150 mg PO DAILY 04/23/14 05/26/18 History XL] amLODIPine [Norvasc] 5 mg PO DAILY 04/23/14 05/26/18 History Carisoprodol [Soma] 350 mg PO DAILY PRN 05/26/18 05/26/18 History HYDROcodone/APAP 7.5-325MG [[place] 1 tab PO DAILY PRN 05/26/18 05/26/18 History 7.5-325] Ibuprofen [Motrin] 800 mg PO TID PRN 05/26/18 05/26/18 History Allergies Allergy/AdvReac Type Severity Reaction Status Date / Time No Known Allergies Allergy Verified 05/26/18 17:56 Physical Exam Vitals: Vital Signs Temp Pulse Pulse Resp BP BP Pulse Ox 05/27/18 08:00 98.7 F 77 18 119/80 93 L 05/27/18 04:00 98.2 F 61 18 125/86 94 L 05/27/18 00:00 100.0 F H 80 16 125/67 92 L 05/26/18 19:52 100.8 F H 81 18 130/71 92 L 05/26/18 18:15 68 05/26/18 18:08 68 14 05/26/18 17:38 76 05/26/18 17:14 99.1 F 77 16 161/94 96 Intake and Output 05/26/18 05/27/18 05/27/18 22:59 06:59 14:59 Intake Total 20 76.339 10 Balance 20 76.339 10 Intake: IV 10 Invasive Line 1 10 Amount of Fluid Infused ( 20 ml) Intake, IV Titration 76.339 Amount Heparin Sod,Pork in 0.45% 76.339 NaCl 25,000 unit In 0.45 % NaCl 1 250ml.bag @ 10 UNITS/KG/HR 9.979 mls/hr IV .Q24H [facility] Rx#: [id number] Other: Voiding Method Toilet # Voids 1 Weight 99.79 kg 99.1 kg Results 05/27/18 08:47 05/27/18 08:47 Cardiac Enzymes 05/26/18 05/26/18 05/26/18 Range/Units 17:30 17:30 22:42 AST 61 H (17-59) U/L Troponin I 0.025 0.032 (0.000-0.034) ng/mL 05/27/18 Range/Units 02:27 AST (17-59) U/L Troponin I 0.031 (0.000-0.034) ng/mL Coagulation 05/26/18 05/27/18 05/27/18 Range/Units 17:30 02:27 08:47 PT 11.6 (9.0-12.0) sec APTT 26.7 34.5 H 45.3 H (22.0-30.0) sec Lipids 05/27/18 Range/Units 02:27 Triglycerides 195 H (<150) mg/dL Cholesterol 174 (<200) mg/dL HDL Cholesterol 32 L (40-60) mg/dL CBC 05/26/18 05/27/18 Range/Units 17:30 08:47 WBC 6.1 5.2 (3.8-10.6) k/uL RBC 5.50 5.45 (4.30-5.90) m/uL Hgb 16.2 16.2 (13.0-17.5) gm/dL Hct 48.3 48.7 (39.0-53.0) % Plt Count 210 187 (150-450) k/uL Comprehensive Metabolic Panel 05/26/18 05/27/18 Range/Units 17:30 08:47 Sodium 139 137 (137-145) mmol/L Potassium 4.2 4.5 (3.5-5.1) mmol/L Chloride 105 104 (98-107) mmol/L Carbon Dioxide 22 25 (22-30) mmol/L BUN 16 15 (9-20) mg/dL Creatinine 0.93 0.96 (0.66-1.25) mg/dL Glucose 127 H 142 H (74-99) mg/dL Calcium 9.7 9.4 (8.4-10.2) mg/dL AST 61 H (17-59) U/L ALT 112 H (21-72) U/L Alkaline Phosphatase 74 (38-126) U/L Total Protein 7.7 (6.3-8.2) g/dL Albumin 4.8 (3.5-5.0) g/dL Current Medications Generic Name Dose Route Start Last Admin Trade Name Freq PRN Reason Stop Dose Admin Hydrocodone Bitart/Acetaminophen 1 each 05/26/18 19:27 05/26/18 23:58 [place] 7.5-325 PO 1 each DAILY PRN Administration Pain Albuterol Sulfate 2.5 mg 05/27/18 09:33 Ventolin Nebulized INHALATION RT-QID PRN Shortness Of Breath Or Wheezing Amlodipine Besylate 5 mg 05/27/18 09:00 05/27/18 08:31 Norvasc PO 5 mg DAILY [facility] Administration Aspirin 325 mg 05/27/18 09:00 05/27/18 08:31 Aspirin PO 325 mg DAILY [facility] Administration Carisoprodol 350 mg 05/26/18 19:27 Soma PO DAILY PRN Pain Heparin Sodium (Porcine) 0 unit 05/27/18 03:37 05/27/18 03:44 Heparin IV 4,000 unit PER PROTOCOL PRN Administration Low PTT Protocol Heparin Sodium/Sodium Chloride 250 mls @ 9.979 mls/hr 05/26/18 19:30 05/27/18 03:41 25,000 unit/ Sodium Chloride IV 13 units/kg/hr .Q24H [facility] 12.973 mls/hr Titration Protocol 10 UNITS/KG/HR Ibuprofen 800 mg 05/26/18 19:27 Motrin PO TID PRN Pain Metoprolol Succinate 150 mg 05/27/18 09:00 05/27/18 08:31 Toprol Xl PO 150 mg DAILY [facility] Administration Nitroglycerin 1 inch 05/27/18 00:00 05/27/18 05:44 Nitro-Bid Oint TOPICAL Not Given Q6HR [facility] Nitroglycerin 0.4 mg 05/26/18 19:24 Nitrostat SUBLINGUAL Q5M PRN Chest Pain Intake and Output 05/26/18 05/27/18 05/27/18 22:59 06:59 14:59 Intake Total 20 76.339 10 Balance 20 76.339 10 Intake: IV 10 Invasive Line 1 10 Amount of Fluid Infused ( 20 ml) Intake, IV Titration 76.339 Amount Heparin Sod,Pork in 0.45% 76.339 NaCl 25,000 unit In 0.45 % NaCl 1 250ml.bag @ 10 UNITS/KG/HR 9.979 mls/hr IV .Q24H [facility] Rx#: [id number] Other: Voiding Method Toilet # Voids 1 Weight 99.79 kg 99.1 kg 05/27/18 08:47 05/27/18 08:47 - EKG Interpretation EKG: sinus rhythm ( pvc noted.)
[2018-05-27] MEDS ORDERED: Magnesium Replacement Protocol 1 EACH MISC MISCELLANE PRN (12:03)
[2018-05-27] MEDS: MAGNESIUM SULFATE-D5W PMX 1 GM in DEXTROSE/WATER 1 100ML.BAG IVPB SCH ×2 (14:50→16:31)
[2018-05-27] MEDS: methylPREDNISolone SOD SUCCI 125 MG/2 ML VIAL IV SCH ×3 (14:51→23:28)
[2018-05-27] MEDS ORDERED: IPRATROPIUM-ALBUTEROL 3 ML NEB INHALATION SCH (16:00)
--- NOTE | 2018-05-27 16:03 | P.CNPUL ---
History of Present Illness Consult date: 05/27/18 Reason for consult: dyspnea History of present illness: A pleasant 52-year-old male patient with known history of hypertrophic obstructive cardiomyopathy with an AICD in place in addition to history of hypertension and hyperlipidemia and chronic smoker. The patient came into the hospital because of sharp pain and has left chest area going to the left arm. This was a very brief pain that occurred and following the patient also experienced some shortness of breath. He was in a good state of health. 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 He was using a product called [employer] and he inhaled some fumes from this product. This made him quite short of breath. He is having some increased cough. The low-grade fever 100.0. Inf luenza screen was negative. D-dimer was negative. He is stating that he short of breath is unable to fully expand his lungs. The same time he has increased cough and bronchospasm wheezing. Chest x-ray was reviewed and was clear from any underlying pulmonary infiltrates or pneumonia. Radiology is on the case. This patient had no pulmonary issues prior to this event. No active asthma. Most of COPD. No recurrent pneumonias. He does not utilize any form of inhalers or any other breathing medications. No childhood asthma. Review of Systems Constitutional: Denies chills, Denies fever Eyes: denies as per HPI, denies blurred vision, denies bulging eye, denies decreased vision, denies diplopia, denies discharge, denies dry eye, denies irritation, denies itching, denies pain, denies photophobia, denies loss of peripheral vision, denies loss of vision, denies tunnel vision/blind spots Ears: deny: decreased hearing, ear discharge, earache, tinnitus Ears, nose, mouth and throat: Denies headache, Denies sore throat Cardiovascular: Reports decreased exercise tolerance, Reports dyspnea on exertion, Reports shortness of breath Respiratory: Reports cough, Reports dyspnea, Reports wheezing Gastrointestinal: Reports as per HPI Genitourinary: Reports as per HPI Musculoskeletal: Reports as per HPI Musculoskeletal: absent: ankle pain, ankle stiffness, ankle swelling, as per HPI, elbow pain, elbow stiffness, elbow swelling, foot pain, foot stiffness, foot swelling, hand pain, hand stiffness, hand swelling, hip pain, hip st iffness, hip swelling, knee pain, knee stiffness, knee swelling, shoulder pain, shoulder stiffness, shoulder swelling, wrist pain, wrist stiffness, wrist swelling Integumentary: Reports as per HPI Neurological: Reports as per HPI Psychiatric: Reports as per HPI Endocrine: Reports as per HPI Hematologic/Lymphatic: Reports as per HPI Allergic/Immunologic: Reports as per HPI Past Medical History Past Medical History: No Reported History Additional Past Medical History / Comment(s): see Dr Brewer H&P. HYPERTENSIVE CARDIOMYOPATHY (HCM),AICD (2014) History of Any Multi-Drug Resistant Organisms: None Reported Past Surgical History: AICD, Heart Catheterization Additional Past Surgical History / Comment(s): heart cath Apr 2014. AICD ([employer]) PER DR. BREWER NOTES Past Anesthesia/Blood Transfusion Reactions: No Reported Reaction Type of Cardiac Device: AICD Device Placement Date:: 06/03/2014 Past Psychological History: No Psychological Hx Reported Smoking Status: Current some day smoker Past Alcohol Use History: Occasional Additional Past Alcohol Use History / Comment(s): SMOKES ABOUT .25 PPD, 30 YRS. Past Drug Use History: None Reported - Past Family History Father Family Medical History: Diabetes Mellitus, Renal Disease Mother Family Medical History: No Reported History Medications and Allergies Home Medications Medication Instructions Recorded Confirmed Type Metoprolol Succinate (ER) [Toprol 150 mg PO DAILY 04/23/14 05/26/18 History XL] amLODIPine [Norvasc] 5 mg PO DAILY 04/23/14 05/26/18 History Carisoprodol [Soma] 350 mg PO DAILY PRN 05/26/18 05/26/18 History HYDROcodone/APAP 7.5-325MG [[place] 1 tab PO DAILY PRN 05/26/18 05/26/18 History 7.5-325] Ibuprofen [Motrin] 800 mg PO TID PRN 05/26/18 05/26/18 History Allergies Allergy/AdvReac Type Severity Reaction Status Date / Time No Known Allergies Allergy Verified 05/26/18 17:56 Physical Exam Vitals: Vital Signs Temp Pulse Pulse Resp BP BP Pulse Ox 05/27/18 11:06 80 18 05/27/18 11:04 98.2 F 80 18 129/82 94 L 05/27/18 08:00 98.7 F 77 18 119/80 93 L 05/27/18 04:00 98.2 F 61 18 125/86 94 L 05/27/18 00:00 100.0 F H 80 16 125/67 92 L 05/26/18 19:52 100.8 F H 81 18 130/71 92 L 05/26/18 18:15 68 05/26/18 18:08 68 14 05/26/18 17:38 76 05/26/18 17:14 99.1 F 77 16 161/94 96 Intake and Output 05/27/18 05/27/18 05/27/18 06:59 14:59 22:59 Intake Total 76.339 969.297 Output Total 500 Balance 76.339 469.297 Intake: IV 20 Invasive Line 1 20 Intake, IV Titration 76.339 89.297 Amount Heparin Sod,Pork in 0.45% 76.339 89.297 NaCl 25,000 unit In 0.45 % NaCl 1 250ml.bag @ 10 UNITS/KG/HR 9.979 mls/hr IV .Q24H [facility] Rx#: [id number] Oral 860 Output: Urine 500 Other: Voiding Method Toilet # Voids 1 Weight 99.1 kg The patient appeared well nourished and normally developed. Vital signs as documented. Head exam is unremarkable. No scleral icterus or corneal arcus noted. Neck is without jugular venous distension, thyromegaly, or carotid b ruits. Carotid upstrokes are brisk bilaterally. Lungs diminished breath sound bilaterally and the patient is prolongation of the expiratory phase of breathing and diffuse expiratory wheezes throughout the lung his bilaterally and his breathing is very much interrupted by coughing spells.. Cardiac exam reveals the PMI to be normally sized and situated. Rhythm is regular. First and second heart sounds normal. No murmurs, rubs or gallops. Abdominal exam reveals normal bowel sounds, no masses, no organomegaly and no aortic enlargement. Extremities are nonedematous and both femoral and pedal pulses are normal.Examination of the skin revealed no evidence of significant rashes, suspicious appearing nevi or other concerning lesions. Neurologically the patient is awake and alert and is no focal neurological deficit. Psychiatric wishes negative for delirium, anxiety or depression. Results - Laboratory Findings CBC and BMP: 05/27/18 08:47 05/27/18 08:47 PT/INR, D-dimer PT 11.6 sec (9.0-12.0) 05/26/18 17:30 INR 1.1 (<1.2) 05/26/18 17:30 D-Dimer 0.59 mg/L FEU (<0.60) 05/26/18 17:30 Abnormal lab findings: Abnormal Labs 05/26/18 05/27/18 05/27/18 17:30 02:27 02:27 APTT 34.5 H Glucose 127 H AST 61 H ALT 112 H Triglycerides 195 H LDL Cholesterol, Calc 103 H HDL Cholesterol 32 L 05/27/18 05/27/18 08:47 08:47 APTT 45.3 H Glucose 142 H AST ALT Triglycerides LDL Cholesterol, Calc HDL Cholesterol - Diagnostic Findings Chest x-ray: image reviewed Assessment and Plan Plan: Assessment 1 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 The patient had increased bronchospasm wheezing. He could've an underlying COPD as the patient is a chronic smoker which exacerbated following this exposure. Currently is bronchospastic and wheezy and short of breath secondary to above 2 hypertrophic obstructive cardiomyopathy 3 history of AICD placement 4 smoker 5 hypertension 6 hyperlipidemia Plan Discussed the findings the patient. We'll put patient on DuoNeb nebulized treatments 4 times a day [id number]. We'll start the patient a combination of Perforomist and Pulmicort overestimates twice a day. We'll start the patient IV Solu Medrol. Anticipate some improvement over the next 24 hours. We'll need an outpatient only function test to assess for presence of any COPD. The chest x-ray is free of any acute pulmonary infiltrates or pneumonia. We'll continue to follow.
[2018-05-27 16:36] LABS: Glucose,Whole Blood 206 mg/dL (75-99)
[2018-05-27] MEDS: INSULIN ASPART (NovoLOG) 100 UNIT/ML VIAL SQ SCH ×2 (17:01→21:37)
[2018-05-27] MEDS ORDERED: MAG HYDROX/AL HYDROX/SIMETH 30 ML CUP PO PRN (17:41)
[2018-05-27] MEDS ORDERED: CALCIUM CARBONATE 500 MG CHEWABLE PO PRN (17:41)
[2018-05-27] MEDS ORDERED: MELATONIN 3 MG TABLET PO PRN (17:41)
[2018-05-27] MEDS ORDERED: LORazepam 0.5 MG TAB PO PRN (17:41)
[2018-05-27] MEDS ORDERED: MAGNESIUM HYDROXIDE 2,400 MG/10 ML CUP PO PRN (17:41)
[2018-05-27] MEDS ORDERED: ONDANSETRON 4 MG/2 ML VIAL IVP PRN (17:41)
[2018-05-27] MEDS ORDERED: NALOXONE 0.4 MG/ML 1 ML VIAL IV PRN (17:41)
[2018-05-27] MEDS ORDERED: LACTULOSE 20 GM/30 ML CUP PO PRN (17:41)
[2018-05-27] MEDS ORDERED: ACETAMINOPHEN TAB 325 MG TAB PO PRN (17:41)
--- NOTE | 2018-05-27 18:03 | ECHOF ---
Referral Reason:Assess LV function MEASUREMENTS -------- HEIGHT: 188.0 cm WEIGHT: 98.9 kg BP: 119/80 RVIDd: 3.1 cm (< 3.3) IVSd: 1.6 cm (0.6 - 1.1) LVIDd: 3.5 cm (3.9 - 5.3) LVPWd: 1.6 cm (0.6 - 1.1) IVSs: 1.9 cm LVIDs: 2.3 cm LVPWs: 2.0 cm LAESV Index (A-L): 19.66 ml/m Ao Diam: 3.4 cm (2.0 - 3.7) AV Cusp: 1.9 cm (1.5 - 2.6) LA Diam: 2.9 cm (2.7 - 3.8) MV E Francisco: 0.89 m/s MV DecT: 213 ms MV A Francisco: 0.69 m/s MV E/A Ratio: 1.28 AV maxP.53 mmHg AV meanP.41 mmHg RAP: 5.00 mmHg RVSP: 14.16 mmHg FINDINGS -------- Sinus rhythm. This was a technically adequate study. The left ventricular size is normal. There is moderate concentric left ventricular hypertrophy. O verall left ventricular systolic function is normal with, an EF between 55 - 60 %. There is progres sive increase in wall thickness towards the apex, with a wall thickness >1.5 cm. This is consistent w ill asymmetric apical hypertrophy--HOCM The right ventricle is mildly enlarged. Normal LA size by volume 22+/-6 ml/m2. Electronic pacemaker lead seen in the right ventricular cavity. RA appears enlarged. There is mild aortic valve sclerosis. There is no evidence of aortic regurgitation. There is no e vidence of aortic stenosis. The mitral valve leaflets are mildly thickened. There is trace to mild mitral regurgitation. Mild tricuspid regurgitation present. There is no evidence of pulmonary hypertension. The right v entricular systolic pressure, as measured by Doppler, is 14.16mmHg. The pulmonic valve was not well visualized. The aortic root size is normal. Normal inferior vena cava with normal inspiratory collapse consistent with estimated right atrial pre ssure of 5 mmHg. There is no pericardial effusion. CONCLUSIONS -------- 1. Sinus rhythm. 2. This was a technically adequate study. 3. The left ventricular size is normal. 4. There is moderate concentric left ventricular hypertrophy. 5. Overall left ventricular systolic function is normal with, an EF between 55 - 60 %. 6. There is progressive increase in wall thickness towards the apex, with a wall thickness >1.5 cm. T his is consistent will asymmetric apical hypertrophy-HOCM 7. The right ventricle is mildly enlarged. 8. Normal LA size by volume 22+/-6 ml/m2. 9. Electronic pacemaker lead seen in the right ventricular cavity. 10. RA appears enlarged. 11. There is mild aortic valve sclerosis. 12. The mitral valve leaflets are mildly thickened. 13. There is trace to mild mitral regurgitation. 14. Mild tricuspid regurgitation present. 15. There is no evidence of pulmonary hypertension. 16. The right ventricular systolic pressure, as measured by Doppler, is 14.16mmHg. 17. The pulmonic valve was not well visualized. 18. The aortic root size is normal. 19. There is no pericardial effusion. [employer]: Sven Cano RDCS
--- NOTE | 2018-05-27 18:26 | HP ---
HISTORY AND PHYSICAL DATE OF ADMISSION: May 26, 2018. DATE OF SERVICE: May 27, 2018. PRESENT COMPLAINT: Short of breath. HISTORY OF PRESENT COMPLAINT: Pleasant 52-year-old patient follows with Dr. Hayward. Chronic stable medical conditions include cardiomyopathy, exact cause unknown, AICD, hypertension, and chronic low back pain for herniated discs that he [facility] [place]. The patient presents with 2 days of increasing shortness of breath, wheezing with some chills and fever, congested, not too much of cough, tired, run down, admitted, felt to have COPD exacerbation. There is no edema or orthopnea. The patient's fiance and mother at the bedside. REVIEW OF SYSTEMS: CONSTITUTIONAL: Tired, fever, chills. HEENT: Stuffiness. RESPIRATORY as above. CARDIOVASCULAR: None. GASTROINTESTINAL: None. GENITOURINARY: None. MUSCULOSKELETAL: Chronic low back pain. DERMATOLOGICAL, HEMATOLOGIC, LYMPHATIC: none. PSYCHIATRY none. NEUROLOGICAL: None. PAST MEDICAL HISTORY: Cardiomyopathy, AICD, hypertension, chronic low back pain from herniated disc, back spasms, insomnia. PAST SURGICAL HISTORY: Cardiac cath in April of 2014 with AICD. SOCIAL HISTORY: Patient smokes a pack a day for 30 years. 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 Alcohol occasionally. Lives with his fiancee. FAMILY HISTORY: Diabetes and kidney disease. HOME MEDICATIONS: 1. Motrin 800 mg t.i.d. p.r.n. 2. [place] 7.5 one tab p.o. daily p.r.n. 3. Soma 350 mg daily p.r.n. 4. Norvasc 5 mg p.o. daily. 5. Toprol-XL 150 mg p.o. daily. ALLERGIES: None. PHYSICAL EXAMINATION: VITAL SIGNS: Vital signs on presentation: Temperature 100.8, pulse 81, respiratory 18, blood pressure 130/71, pulse ox 96% on room air. GENERAL APPEARANCE: Average built, sitting up, tired. EYES: Pupils equal. Conjunctivae normal. HEENT: External appearance of nose and ears normal. Oral cavity normal. NECK: JVD not raised. Mass not palpable. RESPIRATORY: Effort increased. LUNGS: Diminished breath sounds. Prolonged expiration. CARDIOVASCULAR: 1st and 2nd sounds normal. No edema. ABDOMEN: Soft, nontender. Liver and spleen not palpable. LYMPHATICS: No lymph nodes palpable in the neck and axilla. PSYCHIATRY: Alert and oriented x3. Mood and affect normal. NEUROLOGICAL: Pupils equal. Cranial nerves grossly intact. Power and sensation grossly intact. INVESTIGATIONS: White count 6.1, hemoglobin 6.2, potassium 4.2. BUN and creatinine is normal. Troponin 0.025, 0.033, 0.031, AST 61, ALT 112. LDL 103. Influenza A/B is negative. EKG tracing personally reviewed by me shows flipped T-waves in 1 aVL and V4 to V6 and PVC. Chest x-ray film personally reviewed by me shows AICD generator. Borderline enlarged heart. No obvious infiltrate. ASSESSMENT: 1. Acute chronic obstructive pulmonary disease exacerbation in a current smoker. 2. Acute tracheobronchitis. 3. Cardiomyopathy, exact cause unknown. 4. Patient has AICD. 5. Essential hypertension. 6. Chronic low back pain from herniated disc. 7. Chronic low back muscle spasm. 8. Chronic nicotine dependence. Patient is a cigarette smoker. PLAN: Patient is started on bronchodilators, inhaled and IV steroids. Home medications are reviewed. This does not appear to be a cardiac presentation. Hence, nitro paste will be discontinued. Smoking cessation counseling: This was done with the patient. Patient will be given a nicotine patch. More than 3 minutes was spent on this aspect of the case. Copy to Dr. Hayward. SHAYY / JANNA: [id number] /
[2018-05-27] MEDS: NICOTINE 21MG/24HR PATCH TRANSDERM SCH (18:58)
[2018-05-27] MEDS: FORMOTEROL FUMARATE 20 MCG/2 ML NEBU INHALATION SCH (20:01)
[2018-05-27] MEDS: IPRATROPIUM-ALBUTEROL 3 ML NEB INHALATION SCH ×2 (20:01→23:44)
[2018-05-27] MEDS: BUDESONIDE 1 MG/2 ML NEBU INHALATION SCH (20:01)
[2018-05-27] MEDS ORDERED: HEPARIN SODIUM,PORCINE 5,000 UNIT/ML 1 ML VIAL SQ SCH (21:00)
[2018-05-27 21:07] LABS: Glucose,Whole Blood 384 mg/dL (75-99)
[2018-05-28 00:02] VITALS: RESP 18
[2018-05-28] MEDS: IPRATROPIUM-ALBUTEROL 3 ML NEB INHALATION SCH ×3 (03:39→11:30)
[2018-05-28 06:05] LABS: Glucose,Whole Blood 240 mg/dL (75-99)
[2018-05-28] MEDS: INSULIN ASPART (NovoLOG) 100 UNIT/ML VIAL SQ SCH ×2 (06:15→11:57)
[2018-05-28] MEDS: methylPREDNISolone SOD SUCCI 125 MG/2 ML VIAL IV SCH ×2 (06:16→11:57)
[2018-05-28] MEDS: FORMOTEROL FUMARATE 20 MCG/2 ML NEBU INHALATION SCH (08:16)
[2018-05-28] MEDS: BUDESONIDE 1 MG/2 ML NEBU INHALATION SCH (08:17)
[2018-05-28] MEDS ORDERED: ENOXAPARIN 40 MG/0.4 ML SYRINGE SQ SCH (09:00)
[2018-05-28] MEDS ORDERED: ASPIRIN 81 MG PO SCH (09:00)
--- NOTE | 2018-05-28 09:36 | P.PN ---
Subjective This is a pleasant 52-year-old male past medical history significant for hypertension, hypertrophic cardiomyopathy status post AICD placement, chronic nicotine dependence and dyslipidemia. He is seen and examined resting comfortably in bed in no acute distress. He states he feels much better overall since admission. His breathing is stable and he denies any further symptoms of chest discomfort. Echocardiogram obtained reveals preserved left ventricular systolic function with ejection fraction 55-60%, progressive increase in wall thickness towards the apex with a wall thickness of greater than 1.5 cm, right atrium enlarged, mild aortic valve sclerosis, mild tricuspid regurgitation. He has been seen by pulmonary and started on IV steroids and breathing treatments. Blood pressure 133/80 heart rate 70 afebrile maintaining oxygen saturation on room air. Currently maintained on nebulized albuterol, amlodipine 5 mg daily, aspirin 81 mg daily, Pulmicort inhaler, formoterol inhaler, IV steroids, Toprol 150 mg daily. GENERAL: Well-appearing, well-nourished and in no acute distress. NECK: Supple without JVD or thyromegaly. LUNGS: Breath sounds clear to auscultation bilaterally. Respiration equal and unlabored. No wheezes, rales or rhonchi. HEART: Regular rate and rhythm without murmurs, rubs or gallops. S1 and S2 heard. EXTREMITIES: Normal range of motion, no edema. No clubbing or cyanosis. Peripheral pulses intact. ASSESSMENT Acute respiratory distress status post industrial chemical exposure the possibility of underlying COPD Febrile illness Hypertrophic cardiomyopathy with apical and septal hypertrophy without obstruction History of AICD placement Hypertension Dyslipidemia Chronic nicotine dependence PLAN Stable from a cardiac perspective. Follow-up with Dr. Brewer upon discharge. Nurse Practitioner note has been reviewed, I agree with a documented findings and plan of care. Patient was seen and examined. Objective - Vital Signs Vital signs: Vital Signs Temp 97.7 F 05/28/18 04:00 Pulse 78 05/28/18 08:33 Resp 18 05/28/18 04:00 BP 133/80 05/28/18 04:00 Pulse Ox 94 L 05/28/18 08:19 Intake & Output 05/27/18 05/28/18 05/28/18 18:59 06:59 18:59 Intake Total 1239.297 444 Output Total 500 200 Balance 739.297 -200 444 Weight 97.3 kg Intake: IV 30 Invasive Line 1 30 Intake, IV Titration 89.297 Amount Heparin Sod,Pork in 0.45% 89.297 NaCl 25,000 unit In 0.45 % NaCl 1 250ml.bag @ 10 UNITS/KG/HR 9.979 mls/hr IV .Q24H [facility] Rx#: [id number] Oral 1120 444 Output: Urine 500 200 Other: Voiding Method Toilet Toilet # Voids 5 1 1 - Labs CBC & Chem 7: 05/27/18 08:47 05/27/18 08:47 Labs: Abnormal Lab Results - Last 24 Hours (Table) 05/27/18 05/27/18 05/27/18 Range/Units 08:47 08:47 16:34 APTT 45.3 H (22.0-30.0) sec Glucose 142 H (74-99) mg/dL POC Glucose (mg/dL) 206 H (75-99) mg/dL 05/27/18 05/28/18 Range/Units 21:06 06:03 APTT (22.0-30.0) sec Glucose (74-99) mg/dL POC Glucose (mg/dL) 384 H 240 H (75-99) mg/dL
[2018-05-28] MEDS: NICOTINE 21MG/24HR PATCH TRANSDERM SCH (09:39)
[2018-05-28] MEDS: amLODIPine 5 MG TAB PO SCH (09:42)
[2018-05-28] MEDS: METOPROLOL SUCCINATE (ER) 50 MG TAB.ER.24H PO SCH (09:42)
[2018-05-28 10:48] LABS: Glucose,Whole Blood 334 mg/dL (75-99)
[2018-05-28 11:44] LABS: Glucose,Whole Blood 303 mg/dL (75-99)
[2018-05-28 12:02] VITALS: BP 127/74; PULSE 82; TEMP 97.3
--- NOTE | 2018-05-28 20:37 | DS ---
DISCHARGE SUMMARY DATE OF ADMISSION: 05/26/18. DATE OF DISCHARGE: 05/28/18. FINAL DIAGNOSES: 1. Acute chronic obstructive pulmonary disease exacerbation in a current smoker. 2. Acute tracheobronchitis. 3. Cardiomyopathy, exact cause unknown. 4. Patient has AICD. 5. Essential hypertension. 6. Chronic low back pain from herniated disc. 7. Chronic low back pain has with muscle spasm. 8. Chronic nicotine dependence, patient is a cigarette smoker. HOSPITAL COURSE: This patient presented with wheezing, short of breath, found to have COPD exacerbation with tracheobronchitis. The patient has underlying cardiomyopathy. Breathing was much improved. Seen by Cardiology and Pulmonary. Today, I did eap counselor the patient again about smoking and lifestyle changes. Discussion and discharge planning more than 35 minutes. CONSULTATIONS: 1. Dr. Yeyo Huston from Cardiology. 2. Dr. Spain from Pulmonary. The patient did have a 2-D echocardiogram that showed EF of 55-60 percent. DISCHARGE MEDICATIONS: 1. Toprol-XL 150 mg a day. 2. Norvasc 5 mg a day. 3. Soma 350 mg p.o. daily p.r.n. 4. [place] 7.5 one tab p.o. daily p.r.n. 5. Motrin 800 mg t.i.d. p.r.n. 6. Ventolin HFA 1-2 puffs q.6h p.r.n. 7. Atrovent HFA 2 puffs q.i.d. 8. Nicotine 20 mg patch. 9. Prednisone taper. Follow with Dr. Brewer in 1 week, follow Dr. Hayward in 3 days. On examination, LUNGS: Improved air entry. CARDIOVASCULAR: First and second sounds normal. LABS: BUN and creatinine normal. Troponins were negative. LDL is 103. MMODL / IJN: [id number] /
[2018-05-29 12:46] LABS: Hemoglobin A1C 6.6 % (4.0-6.0)
== END 2018-05-28 13:43 | disposition home or self-care (01) ==
LOC: EC 17:01 → 3SCARD 19:24 → 1SOBS 05-28 11:01
PROVIDERS: ADMIT Hospitalist; ATTEND Hospitalist
DX: J44.1 Chronic obstructive pulmonary disease with (acute) exacerbation (principal); J44.0 Chronic obstructive pulmonary disease with (acute) lower respiratory infection; J20.9 Acute bronchitis, unspecified; I11.9 Hypertensive heart disease without heart failure; I42.9 Cardiomyopathy, unspecified; F17.210 Nicotine dependence, cigarettes, uncomplicated; I49.3 Ventricular premature depolarization; E78.5 Hyperlipidemia, unspecified; G89.29 Other chronic pain; M51.26 Other intervertebral disc displacement, lumbar region; G47.00 Insomnia, unspecified; I08.2 Rheumatic disorders of both aortic and tricuspid valves; R07.89 Other chest pain; M79.602 Pain in left arm; Z77.098 Contact with and (suspected) exposure to other hazardous, chiefly nonmedicinal, chemicals; Z95.810 Presence of automatic (implantable) cardiac defibrillator; I25.2 Old myocardial infarction; Z79.891 Long term (current) use of opiate analgesic; Z79.899 Other long term (current) drug therapy; Z83.3 Family history of diabetes mellitus; Z84.1 Family history of disorders of kidney and ureter
CPT/HCPCS: 96366 ×2; 96367; 96375; 96376 ×4; 96365; 99291; 36415; 94640 ×5; 94760; 93005; 93306; 85379; 83880; 80061; 80053; 80048; 83735 ×3; 84484 ×2; 85025; 85027; 85610; 85730 ×2; 87502; 83036; 71046; G0378 ×3; J1644 ×3; J2930 ×2; J3475

== ENCOUNTER 2019-01-30 08:35 | Inpatient (IN) | payer BC ==
[2019-01-30] MEDS ORDERED: NITROGLYCERIN OINT 1 INCH/GM PACKET TOPICAL STA (08:50)
--- NOTE | 2019-01-30 08:51 | ED ---
General Adult HPI - General Chief complaint: Chest Pain Stated complaint: chest pain Time Seen by Provider: 01/30/19 08:35 Source: EMS, RN notes reviewed Mode of arrival: EMS Limitations: no limitations - History of Present Illness Initial comments: This is a 53-year-old male who presents emergency Department complaining of chest pain started 6:00 morning. Patient states radiates to both of his arms. Patient states she's also short of breath and had a sweating episode when it occurred. Patient states she has a history of cardiomyopathy secondary to hypertension. Patient states he has a smoking history as well. Patient states he got in the ambulance today and they gave him 2 nitro is in an aspirin a states the nitroglycerin did not help at all. Patient states he continues to have chest pain and being short of breath. Patient denies any history of high cholesterol or diabetes. Patient denies any calf pain or leg swelling. Patient denies abdominal pain patient with any nausea vomiting per patient denies any recent fever chills or cough. Patient denies any lightheadedness or dizziness. - Related Data Home Medications Medication Instructions Recorded Confirmed Metoprolol Succinate (ER) [Toprol 150 mg PO DAILY 04/23/14 05/26/18 XL] amLODIPine [Norvasc] 5 mg PO DAILY 04/23/14 05/26/18 Carisoprodol [Soma] 350 mg PO DAILY PRN 05/26/18 05/26/18 HYDROcodone/APAP 7.5-325MG [[place] 1 tab PO DAILY PRN 05/26/18 05/26/18 7.5-325] Ibuprofen [Motrin] 800 mg PO TID PRN 05/26/18 05/26/18 Previous Rx's Medication Instructions Recorded Albuterol Inhaler [Ventolin Hfa 1 - 2 puff INHALATION RT-Q6H PRN 05/28/18 Inhaler] #1 inhaler Ipratropium [place] [Atrovent Hfa] 2 puff INHALATION QID #1 inhaler 05/28/18 Nicotine 21Mg/24Hr Patch [Habitrol] 1 patch TRANSDERM DAILY #30 patch 05/28/18 predniSONE 10 mg PO DAILY #30 tab 05/28/18 Allergies Allergy/AdvReac Type Severity Reaction Status Date / Time No Known Allergies Allergy Verified 05/26/18 17:56 Review of Systems ROS Statement: Those systems with pertinent positive or pertinent negative responses have been documented in the HPI. ROS Other: All systems not noted in ROS Statement are negative. Past Medical History Past Medical History: No Reported History Additional Past Medical History / Comment(s): see Dr Brewer H&P. HYPERTENSIVE CARDIOMYOPATHY (HCM),AICD (2014) History of Any Multi-Drug Resistant Organisms: None Reported Past Surgical History: AICD, Heart Catheterization Additional Past Surgical History / Comment(s): heart cath Apr 2014. AICD (MEDTRONIC) PER DR. BREWER NOTES Past Anesthesia/Blood Transfusion Reactions: No Reported Reaction Type of Cardiac Device: AICD Device Placement Date:: 06/03/2014 Past Psychological History: No Psychological Hx Reported Smoking Status: Current some day smoker Past Alcohol Use History: Occasional Past Drug Use History: None Reported - Past Family History Father Family Medical History: Diabetes Mellitus, Renal Disease Mother Family Medical History: No Reported History General Exam - General Exam Comments Initial Comments: GENERAL: Patient is well-developed and well-nourished. Patient is nontoxic and well- hydrated and is in mild distress. ENT: Neck is soft and supple. No significant lymphadenopathy is noted. Oropharynx is clear. Moist mucous membranes. Neck has full range of motion without eliciting any pain. EYES: The sclera were anicteric and conjunctiva were pink and moist. Extraocular movements were intact and pupils were equal round and reactive to light. Eyelids were unremarkable. PULMONARY: Unlabored respirations. Good breath sounds bilaterally. No audible rales rhonchi or wheezing was noted. CARDIOVASCULAR: There is a regular rate and rhythm without any murmurs gallops or rubs. ABDOMEN: Soft and nontender with normal bowel sounds. SKIN: Skin is clear with no lesions or rashes and otherwise unremarkable. NEUROLOGIC: Patient is alert and oriented x3. Cranial nerves II through XII are grossly intact. Motor and sensory are also intact. Normal speech, volume and content. Symmetrical smile. MUSCULOSKELETAL: Normal extremities with adequate strength and full range of motion. No lower extremity swelling or edema. No calf tenderness. LYMPHATICS: No significant lymphadenopathy is noted PSYCHIATRIC: Normal psychiatric evaluation. 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 Patient's EKG shows slight ST segment elevation inferior leads however not significant enough to call an IA. Patient also has some T-wave inversions in 1 and aVL as well as V5 and V6 which were seen on old EKGs. Chest x-ray shows no acute abnormality. Patient continues to have chest pain so I will place the patient on heparin for his unstable angina. I also will put the patient a sliding scale insulin for the elevated sugar. Spoke with the [facility] states that the patient admitted the patient wrote admitting orders I continued heparin and aspirin Nitropaste on the floor and I consult to cardiology. - Lab Data Result diagrams: 01/30/19 08:51 01/30/19 08:51 Lab Results 01/30/19 01/30/19 01/30/19 Range/Units 08:51 08:51 08:51 WBC 17.8 H (3.8-10.6) k/uL RBC 5.09 (4.30-5.90) m/uL Hgb 15.8 (13.0-17.5) gm/dL Hct 44.9 (39.0-53.0) % MCV 88.1 (80.0-100.0) fL MCH 31.0 (25.0-35.0) pg MCHC 35.2 (31.0-37.0) g/dL RDW 12.8 (11.5-15.5) % Plt Count 260 (150-450) k/uL Neutrophils % 87 % Lymphocytes % 8 % Monocytes % 4 % Eosinophils % 1 % Basophils % 0 % Neutrophils # 15.6 H (1.3-7.7) k/uL Lymphocytes # 1.4 (1.0-4.8) k/uL Monocytes # 0.7 (0-1.0) k/uL Eosinophils # 0.1 (0-0.7) k/uL Basophils # 0.1 (0-0.2) k/uL PT 11.6 (9.0-12.0) sec INR 1.1 (<1.2) APTT 23.8 (22.0-30.0) sec Sodium 138 (137-145) mmol/L Potassium 4.6 (3.5-5.1) mmol/L Chloride 107 (98-107) mmol/L Carbon Dioxide 20 L (22-30) mmol/L Anion Gap 11 mmol/L BUN 20 (9-20) mg/dL Creatinine 0.93 (0.66-1.25) mg/dL Est GFR (CKD-EPI)AfAm >90 (>60 ml/min/1.73 sqM) Est GFR (CKD-EPI)NonAf >90 (>60 ml/min/1.73 sqM) Glucose 297 H (74-99) mg/dL Calcium 10.0 (8.4-10.2) mg/dL Magnesium 1.8 (1.6-2.3) mg/dL Total Bilirubin 0.6 (0.2-1.3) mg/dL AST 32 (17-59) U/L ALT 79 H (21-72) U/L Alkaline Phosphatase 76 (38-126) U/L Troponin I (0.000-0.034) ng/mL Total Protein 7.0 (6.3-8.2) g/dL Albumin 4.5 (3.5-5.0) g/dL 01/30/19 Range/Units 08:51 WBC (3.8-10.6) k/uL RBC (4.30-5.90) m/uL Hgb (13.0-17.5) gm/dL Hct (39.0-53.0) % MCV (80.0-100.0) fL MCH (25.0-35.0) pg MCHC (31.0-37.0) g/dL RDW (11.5-15.5) % Plt Count (150-450) k/uL Neutrophils % % Lymphocytes % % Monocytes % % Eosinophils % % Basophils % % Neutrophils # (1.3-7.7) k/uL Lymphocytes # (1.0-4.8) k/uL Monocytes # (0-1.0) k/uL Eosinophils # (0-0.7) k/uL Basophils # (0-0.2) k/uL PT (9.0-12.0) sec INR (<1.2) APTT (22.0-30.0) sec Sodium (137-145) mmol/L Potassium (3.5-5.1) mmol/L Chloride (98-107) mmol/L Carbon Dioxide (22-30) mmol/L Anion Gap mmol/L BUN (9-20) mg/dL Creatinine (0.66-1.25) mg/dL Est GFR (CKD-EPI)AfAm (>60 ml/min/1.73 sqM) Est GFR (CKD-EPI)NonAf (>60 ml/min/1.73 sqM) Glucose (74-99) mg/dL Calcium (8.4-10.2) mg/dL Magnesium (1.6-2.3) mg/dL Total Bilirubin (0.2-1.3) mg/dL AST (17-59) U/L ALT (21-72) U/L Alkaline Phosphatase (38-126) U/L Troponin I 0.027 (0.000-0.034) ng/mL Total Protein (6.3-8.2) g/dL Albumin (3.5-5.0) g/dL Critical Care Time Critical Care Time: Yes Total Critical Care Time: 35 Disposition Clinical Impression: Unstable angina pectoris, Diabetes mellitus, new onset Disposition: ADMITTED IP TO THIS HOSP Referrals: Reji Hayward MD [Primary Care Provider] - 1-2 days Time of Disposition: 09:53
[2019-01-30 09:05] LABS: Basophils # (A) 0.1 k/uL (0-0.2); Basophils % (A) 0 %; Eosinophils # (A) 0.1 k/uL (0-0.7); Eosinophils % (A) 1 %; HCT 44.9 % (39.0-53.0); HGB 15.8 gm/dL (13.0-17.5); Lymphocytes # (A) 1.4 k/uL (1.0-4.8); Lymphocytes % (A) 8 %; MCHC 35.2 g/dL (31.0-37.0); MCV 88.1 fL (80.0-100.0); Mean Platelet Volume 5.9; Monocytes # (A) 0.7 k/uL (0-1.0); Monocytes % (A) 4 %; Neutrophils # (A) 15.6 k/uL (1.3-7.7); Neutrophils % (A) 87 %; Platelet Count 260 k/uL (150-450); RBC 5.09 m/uL (4.30-5.90); RDW 12.8 % (11.5-15.5); WBC 17.8 k/uL (3.8-10.6)
[2019-01-30 09:16] LABS: INR 1.1 (<1.2); Partial Thromboplastin Time 23.8 sec (22.0-30.0); Prothrombin Time 11.6 sec (9.0-12.0)
--- NOTE | 2019-01-30 09:18 | XR ---
EXAMINATION TYPE: XR chest 2V DATE OF EXAM: 01/30/2019 COMPARISON: 05/26/2018 HISTORY: 53-year-old male with chest pain TECHNIQUE: PA and lateral views FINDINGS: Left anterior chest wall AICD generator with right ventricular. Heart normal size. Aorta within conner l limits. No consolidation or pleural effusion. IMPRESSION: No acute cardiopulmonary process.
[2019-01-30 09:23] LABS: ALT 79 U/L (21-72); AST 32 U/L (17-59); African American GFR (CKD) >90 (>60 ml/min/1.73 sqM); Albumin 4.5 g/dL (3.5-5.0); Alkaline Phosphatase 76 U/L (38-126); Anion Gap 11 mmol/L; Blood Urea Nitrogen 20 mg/dL (9-20); Carbon Dioxide 20 mmol/L (22-30); Chloride 107 mmol/L (98-107); Glucose 297 mg/dL (74-99); Magnesium 1.8 mg/dL (1.6-2.3); Non-African American GFR(CKD) >90 (>60 ml/min/1.73 sqM); Potassium 4.6 mmol/L (3.5-5.1); Sodium 138 mmol/L (137-145); Total Bilirubin 0.6 mg/dL (0.2-1.3)
[2019-01-30] MEDS ORDERED: HEPARIN SODIUM,PORCINE 5,000 UNIT/ML 1 ML VIAL IV ONE (09:52)
[2019-01-30] MEDS ORDERED: NITROGLYCERIN SL TABS 0.4 MG TAB SUBLINGUAL PRN ×3 (09:54→14:49)
[2019-01-30] MEDS ORDERED: HEPARIN SOD,PORK IN 0.45% NACL 25,000 UNIT in 0.45% NACL 1 250ML.BAG IV SCH (10:00)
[2019-01-30] MEDS ORDERED: ACETAMINOPHEN TAB 500 MG TAB PO STA (10:41)
[2019-01-30] MEDS ORDERED: KETOROLAC 30 MG/ML 1 ML VIAL IVP STA (10:49)
[2019-01-30] MEDS ORDERED: ALPRAZolam 0.25 MG TAB PO PRN (11:44)
[2019-01-30] MEDS ORDERED: SODIUM CHLORIDE 0.9% 1,000 ML in EMPTY BAG 1 BAG IV ONE (11:44)
[2019-01-30] MEDS ORDERED: ALPRAZolam 0.5 MG TAB PO PRN (11:44)
[2019-01-30] MEDS ORDERED: ATORVASTATIN 80 MG TAB PO STA (11:44)
[2019-01-30] MEDS ORDERED: ASPIRIN 325 MG TAB PO STA (11:44)
[2019-01-30] MEDS ORDERED: NITROGLYCERIN OINT 1 INCH/GM PACKET TOPICAL SCH (12:00)
--- NOTE | 2019-01-30 12:01 | ECHOF ---
Referral Reason:chest pain MEASUREMENTS -------- HEIGHT: 182.9 cm WEIGHT: 97.5 kg BP: IVSd: 1.6 cm (0.6 - 1.1) LVIDd: 3.9 cm (3.9 - 5.3) LVPWd: 1.9 cm (0.6 - 1.1) IVSs: 2.2 cm LVIDs: 1.7 cm LVPWs: 2.5 cm LAESV Index (A-L): 20.06 ml/m Ao Diam: 3.1 cm (2.0 - 3.7) AV Cusp: 2.3 cm (1.5 - 2.6) LA Diam: 3.2 cm (2.7 - 3.8) MV EXCURSION: 18.395 mm (> 18.000) MV EF SLOPE: 58 mm/s (70 - 150) EPSS: 0.8 cm MV E Francisco: 0.61 m/s MV DecT: 244 ms MV A Francisco: 0.82 m/s MV E/A Ratio: 0.74 RAP: 5.00 mmHg RVSP: 14.36 mmHg TAPSE: 28.11 mm FINDINGS -------- Sinus rhythm. AICD This was a technically adequate study. The cavity size is decreased. There is severe concentric left ventricular hypertrophy. Overall le ft ventricular systolic function is normal with, an EF between 60 - 65 %. Moderate asymmetric septa l hypertrophy with septal thickness 1.6 - 1.9 cm. Hx of HOCM The right ventricle is normal in size. The right ventricular systolic function is normal. The left atrial size is normal. Normal LA size by volume 22+/-6 ml/m2. The right atrial size is normal. The aortic valve is trileaflet and appears structurally normal. The mitral valve is normal. There is trace mitral regurgitation. The tricuspid valve appears structurally normal. Trace tricuspid regurgitation present. Right gino tricular systolic pressure is normal at < 35 mmHg. There is no pulmonic regurgitation present. The aortic root size is normal. Normal inferior vena cava with normal inspiratory collapse consistent with estimated right atrial pre ssure of 5 mmHg. There is no pericardial effusion. CONCLUSIONS -------- 1. Sinus rhythm. 2. AICD 3. This was a technically adequate study. 4. The cavity size is decreased. 5. There is severe concentric left ventricular hypertrophy. 6. Overall left ventricular systolic function is normal with, an EF between 60 - 65 %. 7. Moderate asymmetric septal hypertrophy with septal thickness 1.6 - 1.9 cm. 8. Hx of HOCM 9. The right ventricle is normal in size. 10. The right ventricular systolic function is normal. 11. The left atrial size is normal. 12. Normal LA size by volume 22+/-6 ml/m2. 13. The right atrial size is normal. 14. The aortic valve is trileaflet and appears structurally normal. 15. The mitral valve is normal. 16. There is trace mitral regurgitation. 17. The tricuspid valve appears structurally normal. 18. Trace tricuspid regurgitation present. 19. Right ventricular systolic pressure is normal at < 35 mmHg. 20. There is no pulmonic regurgitation present. 21. The aortic root size is normal. 22. Normal inferior vena cava with normal inspiratory collapse consistent with estimated right atrial pressure of 5 mmHg. 23. There is no pericardial effusion. DENTAL EQUIPMENT TECHNICIAN: Zuleima Frias RDCS
--- NOTE | 2019-01-30 12:05 | P.CRDCN ---
History of Present Illness Consult date: 01/30/19 Requesting physician: Mallory Woody Consult reason: chest pain Chief complaint: Chest pain History of present illness: This is a 53-year-old gentleman with history of hypertrophic cardiomy opathy and prior AICD, follows with Dr. Brewer in the office. He also has history of hypertension, nicotine dependence, patient's smokes one pack of cigarettes per day. 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 He came into the hospital for further evaluation and treatment. Blood pressure on arrival here 128/78 with a heart rate in the 70s, 95% on room air. White blood cell count 17.8, hemoglobin 15.8, platelet count 260. Sodium 138, potassium 4.6, BUN 20, creatinine 0.9, magnesium 1.8. Troponin 0.027. EKG showed a normal sinus rhythm with PACs, ST changes in the inferior leads T-wave inversion in the lateral leads and ST-T wave changes noted in the anterior leads some of the changes have been present in the past, likely secondary to hypertrophic cardiomyopathy, however his possibility of some mild new changes as well. Patient has been advised to undergo cardiac catheterization, the risks and the benefits were explained to him in detail and he is willing to proceed. Chest x-ray did not reveal any acute process. Past Medical History Past Medical History: No Reported History Additional Past Medical History / Comment(s): see Dr Brewer H&P. HYPERTENSIVE CARDIOMYOPATHY (HCM),AICD (2014) History of Any Multi-Drug Resistant Organisms: None Reported Past Surgical History: AICD, Heart Catheterization Additional Past Surgical History / Comment(s): heart cath Apr 2014. AICD (MEDTRONIC) PER DR. BREWER NOTES Past Anesthesia/Blood Transfusion Reactions: No Reported Reaction Type of Cardiac Device: AICD Device Placement Date:: 06/03/2014 Past Psychological History: No Psychological Hx Reported Smoking Status: Current some day smoker Past Alcohol Use History: Occasional Past Drug Use History: None Reported - Past Family History Father Family Medical History: Diabetes Mellitus, Renal Disease Mother Family Medical History: No Reported History Medications and Allergies Home Medications Medication Instructions Recorded Confirmed Type Metoprolol Succinate (ER) [Toprol 100 mg PO DAILY 04/23/14 01/30/19 History XL] amLODIPine [Norvasc] 5 mg PO DAILY 04/23/14 01/30/19 History Carisoprodol [Soma] 350 mg PO DAILY PRN 05/26/18 01/30/19 History HYDROcodone/APAP 7.5-325MG [[place] 1 tab PO DAILY PRN 05/26/18 01/30/19 History 7.5-325] Ibuprofen [Motrin] 800 mg PO TID PRN 05/26/18 01/30/19 History Metoprolol Succinate (ER) [Toprol 50 mg PO DAILY 01/30/19 01/30/19 History Xl] Allergies Allergy/AdvReac Type Severity Reaction Status Date / Time No Known Allergies Allergy Verified 01/30/19 11:43 Physical Exam Vitals: Vital Signs Temp Pulse Pulse Resp BP BP Pulse Ox 01/30/19 11:54 97.1 F L 77 16 128/78 95 01/30/19 11:01 77 18 115/78 98 01/30/19 08:55 80 01/30/19 08:37 98.2 F 83 18 150/96 96 Intake and Output 01/29/19 01/30/19 01/30/19 22:59 06:59 14:59 Other: Weight 97.522 kg PHYSICAL EXAMINATION: GENERAL: 53-year-old gentleman in no acute distress at the time of my examination HEENT: Head is atraumatic, normocephalic. Pupils equal, round. Sclera anicteric. Conjunctiva are clear. Mucous membranes of the mouth are moist. Neck is supple. There is no elevated jugular venous pressure. No carotid bruit is heard. HEART EXAMINATION: S1 and S2 1 systolic murmur is heard CHEST EXAMINATION: Lungs are clear to auscultation and precussion. No chest wall tenderness is noted on palpation or with deep breathing. ABDOMEN: Soft, nontender. Bowel sounds are heard. No organomegaly noted. EXTREMITIES: 2+ peripheral pulses with no evidence of peripheral edema and no calf tenderness noted. NEUROLOGIC patient is awake, alert and oriented 3 . . Results 01/30/19 08:51 01/30/19 08:51 Cardiac Enzymes 01/30/19 01/30/19 Range/Units 08:51 08:51 AST 32 (17-59) U/L Troponin I 0.027 (0.000-0.034) ng/mL Coagulation 01/30/19 Range/Units 08:51 PT 11.6 (9.0-12.0) sec APTT 23.8 (22.0-30.0) sec CBC 01/30/19 Range/Units 08:51 WBC 17.8 H (3.8-10.6) k/uL RBC 5.09 (4.30-5.90) m/uL Hgb 15.8 (13.0-17.5) gm/dL Hct 44.9 (39.0-53.0) % Plt Count 260 (150-450) k/uL Comprehensive Metabolic Panel 01/30/19 Range/Units 08:51 Sodium 138 (137-145) mmol/L Potassium 4.6 (3.5-5.1) mmol/L Chloride 107 (98-107) mmol/L Carbon Dioxide 20 L (22-30) mmol/L BUN 20 (9-20) mg/dL Creatinine 0.93 (0.66-1.25) mg/dL Glucose 297 H (74-99) mg/dL Calcium 10.0 (8.4-10.2) mg/dL AST 32 (17-59) U/L ALT 79 H (21-72) U/L Alkaline Phosphatase 76 (38-126) U/L Total Protein 7.0 (6.3-8.2) g/dL Albumin 4.5 (3.5-5.0) g/dL Current Medications Generic Name Dose Route Start Last Admin Trade Name Freq PRN Reason Stop Dose Admin Alprazolam 0.25 mg 01/30/19 11:44 Xanax PO Q6HR PRN Mild Anxiety Alprazolam 0.5 mg 01/30/19 11:44 Xanax PO Q6HR PRN Moderate Anxiety Aspirin 325 mg 01/31/19 09:00 Aspirin PO DAILY [facility] Heparin Sodium/Sodium Chloride 250 mls @ 9.996 mls/hr 01/30/19 10:00 01/30/19 10:29 25,000 unit/ Sodium Chloride IV 10.25 units/kg/hr .Q24H MARIBEL 9.996 mls/hr Administration Protocol 10.25 UNITS/KG/HR Sodium Chloride 1,000 ml/ IV 1,000 mls @ 97.522 mls/hr 01/30/19 11:44 01/30/19 11:51 Solution IV 01/30/19 21:59 97.522 mls/hr .[id number] ONE Administration 1 ML/KG/HR Insulin Aspart 0 unit 01/30/19 12:30 Novolog SQ ACHS MARIBEL Protocol Nitroglycerin 1 inch 01/30/19 12:00 Nitro-Bid Oint TOPICAL Q6HR [facility] Nitroglycerin 0.4 mg 01/30/19 11:44 Nitrostat SUBLINGUAL Q5M PRN Chest Pain Intake and Output 01/29/19 01/30/19 01/30/19 22:59 06:59 14:59 Other: Weight 97.522 kg Patient Weight 01/31/19 06:59 Weight 97.522 kg 01/30/19 08:51 01/30/19 08:51 EKG Interpretations (text) EKG shows normal sinus rhythm with nonspecific ST-T wave changes Assessment and Plan Plan: Assessment and plan #1 chest discomfort, symptoms concerning for possible acute coronary syndrome. Shows normal sinus rhythm with nonspecific ST-T wave changes. Troponin 0.027. #2 hypertrophic cardiomyopathy with prior AICD implant #3 hypertension #4 nicotine dependence Plan Echocardiogram with Doppler study has been requested. Patient has been advised to undergo cardiac catheterization, the risks and the benefits were explained to the patient in detail by Dr. Baez in further recommendations will be based on these findings as well as the patient's clinical course. DNP note has been reviewed, I agree with a documented findings and plan of care. Patient was seen and examined.
[2019-01-30 12:55] LABS: Glucose,Whole Blood 285 mg/dL (75-99)
[2019-01-30] MEDS: INSULIN ASPART (NovoLOG) 100 UNIT/ML VIAL SQ SCH ×3 (13:17→20:58)
[2019-01-30] MEDS ORDERED: LIDOCAINE 1% INJ 10MG/ML (20 ML MDV) ONE (13:23)
[2019-01-30] MEDS ORDERED: fentaNYL (PF) 50 MCG/ML 2 ML AMP ONE (13:30)
[2019-01-30] MEDS ORDERED: VERAPAMIL 2.5 MG/ML 2 ML AMP ONE ×2 (13:30→14:15)
[2019-01-30] MEDS ORDERED: HEPARIN SODIUM 1,000 UN/ML (10ML VL) ONE (13:30)
[2019-01-30] MEDS ORDERED: fentaNYL (PF) 50 MCG/ML 2 ML AMP IV ONE (13:58)
[2019-01-30] MEDS ORDERED: LIDOCAINE 1% INJ 10MG/ML (20 ML MDV) SQ ONE (13:58)
[2019-01-30] MEDS ORDERED: MIDAZOLAM 2 MG/2 ML VIAL IVP ONE ×2 (14:00→14:22)
[2019-01-30] MEDS ORDERED: IV FLUID CONTINUATION 1,000 ML IV ONE (14:02)
[2019-01-30] MEDS ORDERED: VERAPAMIL SYRINGE (5 MG/10 ML) INTRAARTER ONE (14:08)
[2019-01-30] MEDS ORDERED: HYDROcodone/APAP 7.5-325MG 1 EACH TAB PO PRN (14:10)
[2019-01-30] MEDS ORDERED: CARISOPRODOL 350 MG TAB PO PRN (14:10)
--- NOTE | 2019-01-30 14:10 | P.HPIM ---
History of Present Illness Patient is a pleasant 61-year-old gentleman with a history of hypertensive cardiomyopathy and prior AICD came in with complaints of sharp chest pain which started today associated shortness of breath lightheadedness chest pain improved with the nitroglycerin moderate amount of chest pain with diaphoresis EKG showed some ST elevation less than 2 mm in the inferior leads and T-wave inversions ST- T wave changes were present in the previous EKGs as well. Patient denied any orthopnea or paroxysmal nocturnal dyspnea. Patient blood sugar is highly elevated as well. Chest x-ray did not show any significant abnormality patient can use to smoke one pack of cigarettes per day patient's chest pain is exertional midsternal heaviness moderate severity. Patient's chest pain is nonpleuritic not associated with food. Review of Systems REVIEW OF SYSTEMS: CONSTITUTIONAL: No fever, no malaise, no fatigue. HEENT: No recent visual problems or hearing problems. Denied any sore throat. CARDIOVASCULAR: No orthopnea, PND, no palpitations, no syncope. PULMONARY: No shortness of breath, no cough, no hemoptysis. GASTROINTESTINAL: No diarrhea, no nausea, no vomiting, no abdominal pain. NEUROLOGICAL: No headaches, no weakness, no numbness. HEMATOLOGICAL: Denies any bleeding or petechiae. GENITOURINARY: Denies any burning micturition, frequency, or urgency. MUSCULOSKELETAL/RHEUMATOLOGICAL: Denies any joint pain, swelling, or any muscle pain. ENDOCRINE: Denies any polyuria or polydipsia. The rest of the 14-point review of systems is negative. Past Medical History Past Medical History: No Reported History Additional Past Medical History / Comment(s): see Dr Brewer H&P. HYPERTENSIVE CARDIOMYOPATHY (HCM),AICD (2014) History of Any Multi-Drug Resistant Organisms: None Reported Past Surgical History: AICD, Heart Catheterization Additional Past Surgical History / Comment(s): heart cath Apr 2014. AICD ([employer]TRONIC) PER DR. BREWER NOTES Past Anesthesia/Blood Transfusion Reactions: No Reported Reaction Type of Cardiac Device: AICD Device Placement Date:: 06/03/2014 Past Psychological History: No Psychological Hx Reported Smoking Status: Current every day smoker Past Alcohol Use History: Occasional Additional Past Alcohol Use History / Comment(s): SMOKES ABOUT .25 PPD, 30 YRS. Past Drug Use History: None Reported - Past Family History Father Family Medical History: Diabetes Mellitus, Renal Disease Mother Family Medical History: No Reported History Medications and Allergies Home Medications Medication Instructions Recorded Confirmed Type Metoprolol Succinate (ER) [Toprol 100 mg PO DAILY 04/23/14 01/30/19 History XL] amLODIPine [Norvasc] 5 mg PO DAILY 04/23/14 01/30/19 History Carisoprodol [Soma] 350 mg PO DAILY PRN 05/26/18 01/30/19 History HYDROcodone/APAP 7.5-325MG [[place] 1 tab PO DAILY PRN 05/26/18 01/30/19 History 7.5-325] Ibuprofen [Motrin] 800 mg PO TID PRN 05/26/18 01/30/19 History Metoprolol Succinate (ER) [Toprol 50 mg PO DAILY 01/30/19 01/30/19 History Xl] Allergies Allergy/AdvReac Type Severity Reaction Status Date / Time No Known Allergies Allergy Verified 01/30/19 11:43 Physical Exam Vitals: Vital Signs Temp Pulse Pulse Resp BP BP Pulse Ox 01/30/19 12:00 16 01/30/19 11:54 97.1 F L 77 16 128/78 95 01/30/19 11:01 77 18 115/78 98 01/30/19 08:55 80 01/30/19 08:37 98.2 F 83 18 150/96 96 Intake and Output 01/29/19 01/30/19 01/30/19 22:59 06:59 14:59 Intake Total 17.326 Balance 17.326 Intake: Intake, IV Titration 17.326 Amount Heparin Sod,Pork in 0.45% 17.326 NaCl 25,000 unit In 0.45 % NaCl 1 250ml.bag @ 10. 25 UNITS/KG/HR 9.996 mls/ hr IV .Q24H [facility] Rx#: [id number] Other: Voiding Method Toilet Weight 97.522 kg PHYSICAL EXAMINATION: GENERAL: The patient is alert and oriented x3, not in any acute distress. Well developed, well nourished. HEENT: Pupils are round and equally reacting to light. EOMI. No scleral icterus. No conjunctival pallor. Normocephalic, atraumatic. No pharyngeal erythema. No thyromegaly. CARDIOVASCULAR: S1 and S2 present. No murmurs, rubs, or gallops. PULMONARY: Chest is clear to auscultation, no wheezing or crackles. ABDOMEN: Soft, nontender, nondistended, normoactive bowel sounds. No palpable organomegaly. MUSCULOSKELETAL: No joint swelling or deformity. EXTREMITIES: No cyanosis, clubbing, or pedal edema. NEUROLOGICAL: Gross neurological examination did not reveal any focal deficits. SKIN: No rashes. Results CBC & Chem 7: 01/30/19 08:51 01/30/19 08:51 Labs: Abnormal Lab Results - Last 24 Hours (Table) 01/30/19 01/30/19 01/30/19 Range/Units 08:51 08:51 12:53 WBC 17.8 H (3.8-10.6) k/uL Neutrophils # 15.6 H (1.3-7.7) k/uL Carbon Dioxide 20 L (22-30) mmol/L Glucose 297 H (74-99) mg/dL POC Glucose (mg/dL) 285 H (75-99) mg/dL ALT 79 H (21-72) U/L Thrombosis Risk Factor Assmnt - Choose All That Apply Each Factor Represents 1 point: Age 41-60 years, Medical pt on bed rest, Obesity (BMI >25) Other Risk Factors: Yes Thrombosis Risk Factor Assessment Total Risk Factor Score: 3 Thrombosis Risk Factor Assessment Level: Moderate Risk Assessment and Plan Plan: Chest discomfort with some typical symptoms and some nonspecific ST-T wave changes: Patient will undergo cardiac catheterization -Elevated blood sugars: Will obtain hemoglobin A1c to rule out diabetes mellitus -Hypertension -Hypertrophic cardiomyopathy with prior PRAKASH -Nicotine dependence: Counseling was provided -Leukocytosis reactive without any evidence of infection
[2019-01-30] MEDS ORDERED: PRASUGREL 10 MG TAB ONE (14:12)
[2019-01-30] MEDS ORDERED: BIVALIRUDIN 250 MG in SODIUM CHLORIDE 0.9% 50 ML IV ONE (14:15)
[2019-01-30] MEDS ORDERED: BIVALIRUDIN BOLUS 250 MG/50 ML IV ONE (14:15)
[2019-01-30] MEDS ORDERED: IOPAMIDOL-370 100ML BTL INJ ONE ×2 (14:22→14:44)
[2019-01-30] MEDS ORDERED: PRASUGREL 10 MG TAB PO ONE (14:22)
[2019-01-30] MEDS ORDERED: ATROPINE SULFATE 0.1 MG/ML 10ML SYRINGE IV PRN (14:49)
[2019-01-30] MEDS ORDERED: RX INFO: IV CONTRAST WAS GIVEN 1 EACH MISC MISCELLANE PRN (14:49)
[2019-01-30] MEDS ORDERED: MAG HYDROX/AL HYDROX/SIMETH 30 ML CUP PO PRN (14:49)
[2019-01-30] MEDS ORDERED: ZOLPIDEM 5 MG TAB PO PRN (14:49)
[2019-01-30] MEDS ORDERED: SODIUM CHLORIDE 0.9% 1,000 ML IV SCH (15:00)
[2019-01-30] MEDS ORDERED: amLODIPine 5 MG TAB PO STA (16:04)
[2019-01-30] MEDS ORDERED: METOPROLOL SUCCINATE (ER) 50 MG TAB.ER.24H PO STA (16:04)
[2019-01-30 17:21] LABS: Glucose,Whole Blood 271 mg/dL (75-99)
[2019-01-30 17:40] VITALS: RESP 18
--- NOTE | 2019-01-30 19:40 | PTCA ---
PERCUTANEOUSTRANS CORORONARY ANGIOGRAPHY Mr. Jay is a 53-year-old male with a known history of hypertrophic cardiomyopathy, status post ICD implant, who presented with unstable angina, underwent cardiac catheterization, was found to have critical stenosis involving the mid right coronary artery. In view of that, recommendation was made regarding angioplasty and stenting. The procedure, its risks and complications were discussed with the patient, who was in full understanding and agreement. PROCEDURE: A 6-Burundian FR4 guiding catheter was introduced into the system. After cannulating the right coronary ostium, a 0.014 balanced medium-weight J-wire was advanced across the lesion and positioned distally. Following that, a 4.0 x 15 mm Xience Janie stent was advanced, deployed and post dilated at 16 atmospheres. Following that, the balloon was removed and a 4.5 x 8 mm NC Trek balloon was advanced and one inflation at 12 atmospheres was done. Following that, the balloon and the guidewire were removed. Images were obtained and repeated. Those images revealed stable successful stenting. At that point, the guiding catheter was removed. The sheath was removed and hemostasis was obtained with deployment of a TR band. There was no immediate complication. The patient was returned to his room in stable condition. Of note, the patient had chest discomfort with the inflation that improved at the end the procedure. He received Angiomax per protocol as well as oral loading dose of Effient. RESULTS: Successful stenting of the mid right coronary artery with reduction of stenosis from 80% to 0%. RECOMMENDATIONS: The patient will be continued on aspirin, Effient, beta sara and statin. The importance of dual antiplatelet treatment was discussed with the patient and his family, who are in full understanding and agreement. Duration of procedure was 37 minutes. MMODL / IJN: [id number] /
--- NOTE | 2019-01-30 19:46 | CC ---
CARDIAC CATHETERIZATION REPORT Mr. Jay is a 53-year-old male known with known history of chronic tobacco use, history of hypertrophic cardiomyopathy and prior ICD implantation, who presented with exertional chest discomfort of new onset, associated with dyspnea on exertion. In view of that, recommendation was made regarding cardiac catheterization. The procedure as well as risks and complications were discussed with the patient who is in full understanding and agreement. DESCRIPTION OF PROCEDURE: Patient was brought to labor training manager in a fasting semisedated state after receiving fentanyl and Benadryl and achieving moderate conscious sedated state. Using Xylocaine anesthesia and Seldinger technique, a 6-Maori sheath was introduced in the right radial artery. Selective right and left coronary angiography was performed using 5- Maori 3 and half bend right and left Bobby catheter. Multiple views of the coronary artery, including hemiaxial views were obtained. Following that 5-Maori right Bobby was used to cross the aortic valve and pressures were calculated. Following that, the catheter was removed, images were reviewed. FINDINGS: LEFT MAIN: This is a short size vessel, large in caliber bifurcating into the left circumflex, left anterior descending artery, left main coronary artery has no evidence of high-grade stenosis. LEFT ANTERIOR DESCENDING ARTERY: This is a large-sized vessel reaching toward the apex with a wraparound the apex segment giving rise to a large diagonal branch. The left anterior descending artery as well as branches have no evidence of significant obstructive coronary artery disease. LEFT CIRCUMFLEX: This is a nondominant vessel giving rise to 2 obtuse marginal branches of large caliber. The left circumflex as well as branches have no evidence of obstructive coronary artery disease. RIGHT CORONARY ARTERY: This is a large dominant vessel bifurcating distally into PDA and posterolateral segment and branches. The mid right coronary artery has an eccentric 80% stenosis. The rest of the vessel has no high-grade stenosis. LEFT VENTRICULOGRAM: Left ventriculogram is not performed. HEMODYNAMICS: There was no gradient across the aortic valve. The left ventricular end-diastolic pressure was 14-16 mmHg. CONCLUSION: 1. Critical stenosis involving the mid right coronary artery. 2. Right dominance. 3. No evidence of significant obstructive disease in the LAD and the left circumflex. RECOMMENDATIONS: In view of findings and anatomy, I recommend proceeding with angioplasty and stenting of the right coronary artery. The procedure as well as risks and complications were discussed with the patient who is in full understanding and agreement. MMODL / IJN: [id number] /
[2019-01-30] MEDS: ATORVASTATIN 80 MG TAB PO SCH (20:21)
[2019-01-30 20:47] LABS: Glucose,Whole Blood 289 mg/dL (75-99)
[2019-01-31 01:19] LABS: Hemoglobin A1C 7.4 % (4.0-6.0)
[2019-01-31 06:06] LABS: Glucose,Whole Blood 186 mg/dL (75-99)
[2019-01-31] MEDS: INSULIN ASPART (NovoLOG) 100 UNIT/ML VIAL SQ SCH ×3 (06:13→11:44)
[2019-01-31 07:06] LABS: African American GFR (CKD) >90 (>60 ml/min/1.73 sqM); Anion Gap 7 mmol/L; Blood Urea Nitrogen 17 mg/dL (9-20); Calcium 9.2 mg/dL (8.4-10.2); Carbon Dioxide 26 mmol/L (22-30); Chloride 107 mmol/L (98-107); Cholesterol 177 mg/dL (<200); Glucose 204 mg/dL (74-99); HDL Cholesterol 35 mg/dL (40-60); LDL Cholesterol,Calculated 102 mg/dL (0-99); Non-African American GFR(CKD) >90 (>60 ml/min/1.73 sqM); Potassium 4.4 mmol/L (3.5-5.1); Sodium 140 mmol/L (137-145); Triglycerides 199 mg/dL (<150)
[2019-01-31 08:15] VITALS: BP 138/86; PULSE 69; TEMP 96.1
--- NOTE | 2019-01-31 08:20 | PN ---
PROGRESS NOTE Mr. Jay is a 53-year-old male with known history of hypertrophic cardiomyopathy, status post ICD implant who presented with symptoms of unstable angina, non STEMI, underwent cardiac catheterization and stenting of his mid right coronary artery. He is doing well this morning. His breathing is stable. He denies any dizziness or palpitation. He denies any nausea. He continues to be on aspirin once a day, amlodipine 5 mg daily, Lipitor 80 mg daily, metoprolol succinate 150 mg daily, Effient 10 mg daily. PHYSICAL EXAMINATION: Blood pressure 136/90 with a heart in the 60s. LUNGS: Clear. HEART: Regular rate and rhythm, S1, S2. No S3. No rub with a systolic murmur. ABDOMEN: Soft and nontender. EXTREMITIES: No edema. Right radial pulse intact. LAB DATA: He had an echocardiogram yesterday that revealed a preserved left ventricular size and systolic function with evidence of septal hypertrophy. His lab data revealed troponin of 0.49 and cholesterol 176, LDL 102, potassium 4.4, BUN and creatinine 17 and 0.94. EKG shows no acute changes. IMPRESSION: 1. Status post stenting of the right coronary artery with non STEMI. 2. Hypertrophic cardiomyopathy. 3. Hypertension. RECOMMENDATION: Patient should be able to be discharged home today and followed as an outpatient with Dr. Brewer. MMODL / IJN: [id number] /
[2019-01-31] MEDS ORDERED: amLODIPine 5 MG TAB PO SCH (09:00)
[2019-01-31] MEDS ORDERED: METOPROLOL SUCCINATE (ER) 100 MG TAB.ER.24H PO SCH (09:00)
[2019-01-31] MEDS ORDERED: ASPIRIN 325 MG TAB PO SCH (09:00)
[2019-01-31] MEDS ORDERED: METOPROLOL SUCCINATE (ER) 50 MG TAB.ER.24H PO SCH (09:00)
[2019-01-31] MEDS ORDERED: ASPIRIN 81 MG PO SCH (09:00)
[2019-01-31 10:43] VITALS: BMI 28.4
[2019-01-31] MEDS ORDERED: LOSARTAN 25 MG TAB PO SCH (11:00)
--- NOTE | 2019-01-31 11:10 | P.DS ---
Providers Date of admission: 01/30/19 09:54 Attending physician: Umm Hill Consults: 01/30/19 09:54 Consult Physician Urgent Consulting Provider: Dorothy Mccormick Consult Reason/Comments: Unstable angina Do you want consulting provider notified?: Yes 01/30/19 14:49 Consult Physician Routine Consulting Provider: Dorothy Mccormick Consult Reason/Comments: Post Interventional patient Do you want consulting provider notified?: Already Contacted Primary care physician: [facility] Hospital Course: patient came with symptoms of unstable angina underwent cardiac catheterizati onand stenting of mid RCA. Patient has hypertrophic cardiac myopathy andhas an AICD. Patient is clinically doing well is cleared for discharge from cardiology perspective and will be discharged today patient is needed diagnosed diabetic which is type 2 diabetes mellituswith hemoglobin A1c of 7.5 patient will be prescribed metformin she will start tomorrow evening. Patient will check his blood sugars twice a day diabetic counseling and teaching was provided to the patient. PHYSICAL EXAMINATION: GENERAL: The patient is alert and oriented x3, not in any acute distress. Well developed, well nourished. HEENT: Pupils are round and equally reacting to light. EOMI. No scleral icterus. No conjunctival pallor. Normocephalic, atraumatic. No pharyngeal erythema. No th yromegaly. CARDIOVASCULAR: S1 and S2 present. No murmurs, rubs, or gallops. PULMONARY: Chest is clear to auscultation, no wheezing or crackles. ABDOMEN: Soft, nontender, nondistended, normoactive bowel sounds. No palpable organomegaly. MUSCULOSKELETAL: No joint swelling or deformity. EXTREMITIES: No cyanosis, clubbing, or pedal edema. NEUROLOGICAL: Gross neurological examination did not reveal any focal deficits. SKIN: No rashes. the rest of the chronic medical problems and hospitalization course, refer to dictation of my HPI from yesterday Plan - Discharge Summary New Discharge Prescriptions: New Prasugrel [Effient] 10 mg PO DAILY #90 tab Atorvastatin [Lipitor] 80 mg PO HS #90 tab ALPRAZolam [Xanax] 0.5 mg PO Q6HR PRN #0 tab PRN Reason: Moderate Anxiety Aspirin 81 mg PO DAILY #30 chew Nitroglycerin Sl Tabs [Nitrostat] 0.4 mg SUBLINGUAL Q5M PRN #25 tab PRN Reason: Chest Pain metFORMIN HCL [Glucophage] 500 mg PO BID #60 tab Losartan [Cozaar] 25 mg PO DAILY #30 tab Continue Metoprolol Succinate (ER) [Toprol XL] 100 mg PO DAILY Metoprolol Succinate (ER) [Toprol XL] 50 mg PO DAILY Discontinued amLODIPine [Norvasc] 5 mg PO DAILY Ibuprofen [Motrin] 800 mg PO TID PRN PRN Reason: Pain No Action HYDROcodone/APAP 7.5-325MG [[place] 7.5-325] 1 tab PO DAILY PRN PRN Reason: Pain Carisoprodol [Soma] 350 mg PO DAILY PRN PRN Reason: Pain Discharge Medication List Metoprolol Succinate (ER) [Toprol XL] 100 mg PO DAILY 04/23/14 [History] Carisoprodol [Soma] 350 mg PO DAILY PRN 05/26/18 [History] HYDROcodone/APAP 7.5-325MG [[place] 7.5-325] 1 tab PO DAILY PRN 05/26/18 [History] Metoprolol Succinate (ER) [Toprol XL] 50 mg PO DAILY 01/30/19 [History] ALPRAZolam [Xanax] 0.5 mg PO Q6HR PRN #0 tab 01/31/19 [Rx] Aspirin 81 mg PO DAILY #30 chew 01/31/19 [Rx] Atorvastatin [Lipitor] 80 mg PO HS #90 tab 01/31/19 [Rx] Losartan [Cozaar] 25 mg PO DAILY #30 tab 01/31/19 [Rx] Nitroglycerin Sl Tabs [Nitrostat] 0.4 mg SUBLINGUAL Q5M PRN #25 tab 01/31/19 [Rx] Prasugrel [Effient] 10 mg PO DAILY #90 tab 01/31/19 [Rx] metFORMIN HCL [Glucophage] 500 mg PO BID #60 tab 01/31/19 [Rx] Follow up Appointment(s)/Referral(s): Juma Brewer MD [STAFF PHYSICIAN] - 02/07/19 10:00 am (Tuesday with [facility] (you have a device check scheduled for the at 3pm. If you mention this at this follow up they may do it then)) Reji Hayward MD [Primary Care Provider] - 02/09/19 8:30 am (Tuesday) Patient Instructions/Handouts: Losartan (By mouth), How to Stop Smoking (DC), Type 2 Diabetes in Adults: New Diagnosis (GEN), After Radial Heart Catheter ization (GEN) Activity/Diet/Wound Care/Special Instructions: [facility] will call you on Tuesday to finish the account set up and then they will send you bxorfuav- [phone] Hold Metformin until evening Discharge Disposition: HOME SELF-CARE
[2019-01-31 11:42] LABS: Glucose,Whole Blood 134 mg/dL (75-99)
[2019-01-31] MEDS: ATORVASTATIN 80 MG TAB PO SCH (11:45)
[2019-01-31] MEDS ORDERED: PRASUGREL 10 MG TAB PO SCH (12:00)
== END 2019-01-31 13:25 | disposition home or self-care (01) | DRG 247 ==
LOC: EC 08:35 → 3SCARD 09:54
PROVIDERS: ADMIT Internal Medicine; ATTEND Internal Medicine
PROC: 027034Z Dilation of Coronary Artery, One Artery with Drug-eluting Intraluminal Device, Percutaneous Approach (ICD-10-PCS; principal; 2019-01-30 11:50)
PROC: 4A023N7 Measurement of Cardiac Sampling and Pressure, Left Heart, Percutaneous Approach (ICD-10-PCS; principal; 2019-01-30 11:50)
PROC: B2111ZZ Fluoroscopy of Multiple Coronary Arteries using Low Osmolar Contrast (ICD-10-PCS; principal; 2019-01-30 11:50)
DX: I21.4 Non-ST elevation (NSTEMI) myocardial infarction (principal); I42.2 Other hypertrophic cardiomyopathy; I43 Cardiomyopathy in diseases classified elsewhere; I25.110 Atherosclerotic heart disease of native coronary artery with unstable angina pectoris; D72.829 Elevated white blood cell count, unspecified; F17.200 Nicotine dependence, unspecified, uncomplicated; E11.9 Type 2 diabetes mellitus without complications; Z71.6 Tobacco abuse counseling; I11.9 Hypertensive heart disease without heart failure; Z79.02 Long term (current) use of antithrombotics/antiplatelets; Z79.899 Other long term (current) drug therapy; Z83.3 Family history of diabetes mellitus; Z95.810 Presence of automatic (implantable) cardiac defibrillator; Z79.1 Long term (current) use of non-steroidal anti-inflammatories (NSAID); Z79.891 Long term (current) use of opiate analgesic
CPT/HCPCS: 36415; 71046; 80048; 80053; 80061; 83036; 83735; 84484; 85025; 85347; 85610; 85730; 93005; 93306; 93458; 96361; 96365; 96375; 96376; 99291; C1874

== ENCOUNTER → 2020-05-12 | Outpatient (CLI) | payer BC ==
--- NOTE | 2020-05-12 09:19 | US ---
EXAMINATION TYPE: US groin RT DATE OF EXAM: 05/12/2020 COMPARISON: NONE CLINICAL HISTORY: 54-year-old male K40.90 right inguinal hernia. Patient states right testicular enla rgement. Technique: Targeted ultrasound along the right inguinal region without and with Valsalva. FINDINGS: No inguinal hernia seen. Valsalva maneuvers utilized. There is a prominent lymph node measuring 2.5 x 1.5 x 0.7 cm. Otherwise, no solid or cystic lesion. IMPRESSION: 1. A borderline sized 1.5 cm short axis right inguinal lymph node. This has thin, uniform cortex and overall benign morphology. Probably reactive/post inflammatory and can be followed clinically. If any enlargement is noted, the area can be rescanned. 2. No right inguinal hernia could be identified by ultrasound.
== END | disposition home or self-care (01) ==
LOC: RADUSWWP 06:54
PROVIDERS: ATTEND Pediatrics
DX: K40.90 Unilateral inguinal hernia, without obstruction or gangrene, not specified as recurrent (principal)

== ENCOUNTER → 2020-06-18 | Outpatient (CLI) | payer BC ==
--- NOTE | 2020-06-18 12:40 | US ---
EXAMINATION TYPE: US scrotum with doppler. Grayscale and color Doppler Duplex imaging performed of t meghan scrotum. DATE OF EXAM: 06/18/2020 COMPARISON: NONE CLINICAL HISTORY: N50.8 SCROTAL SWELLING. Pt states right scrotal swelling x 3 months EXAM MEASUREMENTS: TESTICLES: Right Testicle: 6.3 x 3.5 x 2.5 cm Left Testicle: 5.2 x 2.5 x 3.3 cm Doppler performed to assess for testicular vascularity; good bilateral color flow and waveforms are s een. There is no evidence of testicular torsion. Bilateral epididymis not visualized. Presence of hydroceles: Yes, large, right scrotum= 9.6 x 7.7 x 8.5 cm Presence of varicoceles: No IMPRESSION: 1. Large right hydrocele.
== END | disposition home or self-care (01) ==
LOC: RADUSWWP 12:04
PROVIDERS: ATTEND Urology
DX: N43.3 Hydrocele, unspecified (principal)
CPT/HCPCS: 76870; 93975

== ENCOUNTER 2022-05-24 10:13 | Inpatient (IN) | payer BC ==
[2022-05-24] MEDS ORDERED: ASPIRIN 81 MG PO STA (10:38)
[2022-05-24] MEDS ORDERED: MORPHINE SULFATE 4 MG/ML SYRINGE IV STA (10:38)
[2022-05-24] MEDS ORDERED: NITROGLYCERIN SL TABS 0.4 MG TAB SUBLINGUAL STA ×3 (10:38)
--- NOTE | 2022-05-24 10:41 | ED ---
General Adult HPI - General Chief complaint: Chest Pain Stated complaint: Chest Pains Time Seen by Provider: 05/24/22 10:23 Source: patient, RN notes reviewed Mode of arrival: ambulatory Limitations: no limitations - History of Present Illness Initial comments: Patient is a pleasant 42-year-old male presenting to the emergency department with concerns with chest discomfort. Onset of symptoms was a couple hours ago. Discomfort has somewhat improved and is currently 7/10. Discomfort feels like pressure with some radiation/ache in the left arm. There may be minimal associated dyspnea. No nausea. No diaphoresis. Patient does have history of similar symptoms previously requiring stenting. - Related Data Home Medications Medication Instructions Recorded Confirmed Metoprolol Succinate (ER) [Toprol 100 mg PO DAILY 04/23/14 01/30/19 XL] HYDROcodone/APAP 7.5-325MG [[place] 1 tab PO DAILY PRN 05/26/18 01/30/19 7.5-325] carisoprodoL [Soma] 350 mg PO DAILY PRN 05/26/18 01/30/19 Metoprolol Succinate (ER) [Toprol 50 mg PO DAILY 01/30/19 01/30/19 XL] Previous Rx's Medication Instructions Recorded ALPRAZolam [Xanax] 0.5 mg PO Q6HR PRN #0 tab 01/31/19 Aspirin 81 mg PO DAILY #30 chew 01/31/19 Atorvastatin [Lipitor] 80 mg PO HS #90 tab 01/31/19 Losartan [Cozaar] 25 mg PO DAILY #30 tab 01/31/19 Nitroglycerin Sl Tabs [Nitrostat] 0.4 mg SUBLINGUAL Q5M PRN #25 tab 01/31/19 Prasugrel [Effient] 10 mg PO DAILY #90 tab 01/31/19 metFORMIN HCL [Glucophage] 500 mg PO BID #60 tab 01/31/19 Allergies Allergy/AdvReac Type Severity Reaction Status Date / Time No Known Allergies Allergy Verified 05/24/22 10:22 Review of Systems ROS Statement: Those systems with pertinent positive or pertinent negative responses have been documented in the HPI. ROS Other: All systems not noted in ROS Statement are negative. Constitutional: Denies: fever Eyes: Denies: eye pain ENT: Denies: ear pain Respiratory: Reports: as per HPI. Denies: cough Cardiovascular: Reports: as per HPI, chest pain Endocrine: Denies: fatigue Gastrointestinal: Denies: abdominal pain, vomiting Genitourinary: Denies: dysuria Musculoskeletal: Denies: back pain Past Medical History Past Medical History: Coronary Artery Disease (CAD), Diabetes Mellitus, Hypertension Additional Past Medical History / Comment(s): see Dr Brewer H&P. HYPERTENSIVE CARDIOMYOPATHY (HCM),AICD (2014) History of Any Multi-Drug Resistant Organisms: None Reported Past Surgical History: AICD, Heart Catheterization Additional Past Surgical History / Comment(s): heart cath Apr 2014. AICD ([employer]) PER DR. BREWER NOTES Past Anesthesia/Blood Transfusion Reactions: No Reported Reaction Type of Cardiac Device: AICD Device Placement Date:: 06/03/2014 Past Psychological History: No Psychological Hx Reported Smoking Status: Current every day smoker Past Alcohol Use History: Occasional Past Drug Use History: None Reported - Past Family History Father Family Medical History: Diabetes Mellitus, Renal Disease Mother Family Medical History: No Reported History General Exam Limitations: no limitations General appearance: alert, in no apparent distress Head exam: Present: normocephalic Eye exam: Present: normal appearance Neck exam: Present: normal inspection Respiratory exam: Present: normal lung sounds bilaterally Cardiovascular Exam: Present: regular rate, normal rhythm, normal heart sounds Expanded Peripheral pulses: 2+: Radial (R), Radial (L), Posterior Tibialis (R), Posterior Tibialis (L) GI/Abdominal exam: Present: soft. Absent: tenderness Extremities exam: Present: normal inspection. Absent: pedal edema, calf tenderness Neurological exam: Present: alert Psychiatric exam: Present: normal affect, normal mood Skin exam: Present: normal color Course Vital Signs 05/24/22 05/24/22 05/24/22 10:20 11:06 11:12 Temperature 98.3 F Pulse Rate 66 67 74 Respiratory 20 18 20 Rate Blood Pressure 178/102 154/105 142/93 O2 Sat by Pulse 99 Oximetry 05/24/22 11:17 Temperature Pulse Rate 71 Respiratory 18 Rate Blood Pressure 136/89 O2 Sat by Pulse Oximetry EKG Findings - EKG Results: EKG: interpreted by ERMD (Lateral T wave inversion. EKG reviewed from 9 with similar findings), sinus rhythm, normal axis, normal QRS Medical Decision Making - Medical Decision Making Was pt. sent in by a medical professional or institution (, AILIN, PACKAGING COORDINATOR, urgent care, hospital, or longterm...) When possible be specific @ -No Did you speak to anyone other than the patient for history (EMS, parent, family, police, friend...)? What history was obtained from this source @ -No Did you review nursing and triage notes (agree or disagree)? Why? @ -I reviewed and agree with nursing and triage notes Were old charts reviewed (outside hosp., previous admission, EMS record, old EKG, old radiological studies, urgent care reports/EKG's, longterm records)? Report findings @ -No old charts were reviewed Differential Diagnosis (chest pain, altered mental status, abdominal pain women, abdominal pain men, vaginal bleeding, weakness, fever, dyspnea, syncope, headache, dizziness, GI bleed, back pain, seizure, CVA, palpatations, mental health)? @ -Differential Chest Pain: Stable Angina, Unstable Angina, STEMI, NSTEMI Aortic Dissection, Pneumothorax, Musculoskeletal, Esophageal Spasm GERD, Cholecystitis, Pancreatitis, Zoster, this is not meant to be an all-inclusive list. EKG interpreted by me (3pts min.). @ -As above X-rays interpreted by me (1pt min.). @ -Chest x-ray shows no acute process CT interpreted by me (1pt min.). @ -None done U/S interpreted by me (1pt. min.). @ -None done What testing was considered but not performed or refused? (CT, X-rays, U/S, labs)? Why? @ -None What meds were considered but not given or refused? Why? @ -None Did you discuss the management of the patient with other professionals (professionals i.e. AILIN Cormier, PACKAGING COORDINATOR, lab, RT, psych nurse, social science research assistant, admission specialist, teacher, bsa officer, immigration case manager)? Give summary @ -Case was discussed with Dr. Ho, who will admit covering Dr. Smith Was smoking cessation discussed for >3mins.? @ -No Was critical care preformed (if so, how long)? @ -32 minutes critical care time Were there social determinants of health that impacted care today? How? (Homeles sness, low income, unemployed, alcoholism, drug addiction, transportation, low edu. Level, literacy, decrease access to med. care, longterm, rehab)? @ -No Was there de-escalation of care discussed even if they declined (Discuss DNR or withdrawal of care, Hospice)? DNR status @ -No What co-morbidities impacted this encounter? (DM, HTN, Smoking, COPD, CAD, Cancer, CVA, ARF, Chemo, Hep., AIDS, mental health diagnosis, sleep apnea, morbid obesity)? @ -None Was patient admitted / discharged? Hospital course, mention meds given and route, prescriptions, significant lab abnormalities, going to OR and other pertinent info. @ -Patient reevaluated and feeling much better following nitroglycerin. Secondary to bump with troponin patient will be started on heparin. Undiagnosed new problem with uncertain prognosis? @ -No Drug Therapy requiring intensive monitoring for toxicity (Heparin, Nitro, Insulin, Cardizem)? @ -Heparin drip will need to be monitored Were any procedures done? @ -No Diagnosis/symptom? @ -Unstable angina Acute, or Chronic, or Acute on Chronic? @ -Acute Uncomplicated (without systemic symptoms) or Complicated (systemic symptoms)? @ -default Side effects of treatment? @ -No Exacerbation, Progression, or Severe Exacerbation? @ -No Poses a threat to life or bodily function? How? (Chest pain, USA, MS, pneumonia, PE, COPD, DKA, ARF, appy, cholecystitis, CVA, Diverticulitis, Homicidal, Suicidal, threat to staff... and all critical care pts) @ -Patient has unstable angina with concern for non-ST elevation MS - Lab Data Result diagrams: 05/24/22 10:53 05/24/22 10:53 Lab Results 05/24/22 05/24/22 05/24/22 Range/Units 10:53 10:53 10:53 WBC 7.0 (3.8-10.6) k/uL RBC 5.09 (4.30-5.90) m/uL Hgb 15.4 (13.0-17.5) gm/dL Hct 44.1 (39.0-53.0) % MCV 86.8 (80.0-100.0) fL MCH 30.2 (25.0-35.0) pg MCHC 34.8 (31.0-37.0) g/dL RDW 12.7 (11.5-15.5) % Plt Count 225 (150-450) k/uL MPV 6.9 Neutrophils % 47 % Lymphocytes % 34 % Monocytes % 6 % Eosinophils % 10 % Basophils % 1 % Neutrophils # 3.3 (1.3-7.7) k/uL Lymphocytes # 2.4 (1.0-4.8) k/uL Monocytes # 0.4 (0-1.0) k/uL Eosinophils # 0.7 (0-0.7) k/uL Basophils # 0.1 (0-0.2) k/uL PT 12.1 H (9.0-12.0) sec INR 1.2 H (<1.2) APTT 28.0 (22.0-30.0) sec D-Dimer 0.24 (<0.60) mg/L FEU Sodium 139 (137-145) mmol/L Potassium 4.1 (3.5-5.1) mmol/L Chloride 105 (98-107) mmol/L Carbon Dioxide 25 (22-30) mmol/L Anion Gap 9 mmol/L BUN 17 (9-20) mg/dL Creatinine 0.80 (0.66-1.25) mg/dL Est GFR (CKD-EPI)AfAm >90 (>60 ml/min/1.73 sqM) Est GFR (CKD-EPI)NonAf >90 (>60 ml/min/1.73 sqM) Glucose 199 H (74-99) mg/dL Calcium 9.4 (8.4-10.2) mg/dL Magnesium 1.8 (1.6-2.3) mg/dL Total Bilirubin 0.4 (0.2-1.3) mg/dL AST 33 (17-59) U/L ALT 53 H (4-49) U/L Alkaline Phosphatase 59 (38-126) U/L Troponin I (0.000-0.034) ng/mL Total Protein 6.9 (6.3-8.2) g/dL Albumin 4.4 (3.5-5.0) g/dL 05/24/22 Range/Units 10:53 WBC (3.8-10.6) k/uL RBC (4.30-5.90) m/uL Hgb (13.0-17.5) gm/dL Hct (39.0-53.0) % MCV (80.0-100.0) fL MCH (25.0-35.0) pg MCHC (31.0-37.0) g/dL RDW (11.5-15.5) % Plt Count (150-450) k/uL MPV Neutrophils % % Lymphocytes % % Monocytes % % Eosinophils % % Basophils % % Neutrophils # (1.3-7.7) k/uL Lymphocytes # (1.0-4.8) k/uL Monocytes # (0-1.0) k/uL Eosinophils # (0-0.7) k/uL Basophils # (0-0.2) k/uL PT (9.0-12.0) sec INR (<1.2) APTT (22.0-30.0) sec D-Dimer (<0.60) mg/L FEU Sodium (137-145) mmol/L Potassium (3.5-5.1) mmol/L Chloride (98-107) mmol/L Carbon Dioxide (22-30) mmol/L Anion Gap mmol/L BUN (9-20) mg/dL Creatinine (0.66-1.25) mg/dL Est GFR (CKD-EPI)AfAm (>60 ml/min/1.73 sqM) Est GFR (CKD-EPI)NonAf (>60 ml/min/1.73 sqM) Glucose (74-99) mg/dL Calcium (8.4-10.2) mg/dL Magnesium (1.6-2.3) mg/dL Total Bilirubin (0.2-1.3) mg/dL AST (17-59) U/L ALT (4-49) U/L Alkaline Phosphatase (38-126) U/L Troponin I 0.138 H* (0.000-0.034) ng/mL Total Protein (6.3-8.2) g/dL Albumin (3.5-5.0) g/dL Critical Care Time Critical Care Time: Yes Total Critical Care Time: 32 Disposition Clinical Impression: Unstable angina pectoris Disposition: ADMITTED IP TO THIS [facility] Condition: Serious Is patient prescribed a controlled substance at d/c from ED?: No Referrals: Gildardo Smith MD [Primary Care Provider] - 1-2 days Time of Disposition: 11:58
[2022-05-24 11:10] LABS: Basophils # (A) 0.1 k/uL (0-0.2); Basophils % (A) 1 %; Eosinophils # (A) 0.7 k/uL (0-0.7); Eosinophils % (A) 10 %; HCT 44.1 % (39.0-53.0); HGB 15.4 gm/dL (13.0-17.5); Lymphocytes # (A) 2.4 k/uL (1.0-4.8); Lymphocytes % (A) 34 %; MCH 30.2 pg (25.0-35.0); MCHC 34.8 g/dL (31.0-37.0); MCV 86.8 fL (80.0-100.0); Mean Platelet Volume 6.9; Monocytes # (A) 0.4 k/uL (0-1.0); Monocytes % (A) 6 %; Neutrophils # (A) 3.3 k/uL (1.3-7.7); Neutrophils % (A) 47 %; Platelet Count 225 k/uL (150-450); RBC 5.09 m/uL (4.30-5.90); RDW 12.7 % (11.5-15.5)
[2022-05-24 11:20] LABS: INR 1.2 (<1.2); Prothrombin Time 12.1 sec (9.0-12.0)
[2022-05-24 11:28] LABS: ALT 53 U/L (4-49); AST 33 U/L (17-59); African American GFR (CKD) >90 (>60 ml/min/1.73 sqM); Albumin 4.4 g/dL (3.5-5.0); Alkaline Phosphatase 59 U/L (38-126); Anion Gap 9 mmol/L; Blood Urea Nitrogen 17 mg/dL (9-20); Calcium 9.4 mg/dL (8.4-10.2); Carbon Dioxide 25 mmol/L (22-30); Chloride 105 mmol/L (98-107); Glucose 199 mg/dL (74-99); Magnesium 1.8 mg/dL (1.6-2.3); Non-African American GFR(CKD) >90 (>60 ml/min/1.73 sqM); Potassium 4.1 mmol/L (3.5-5.1); Sodium 139 mmol/L (137-145); Total Bilirubin 0.4 mg/dL (0.2-1.3); Total Protein 6.9 g/dL (6.3-8.2)
--- NOTE | 2022-05-24 11:49 | XR ---
EXAMINATION TYPE: XR chest 2V DATE OF EXAM: 05/24/2022 COMPARISON: Chest x-ray January 27, 2019 HISTORY: Chest pain. TECHNIQUE: Frontal and lateral views of the chest are obtained. FINDINGS: There is no suspicious new focal air space opacity, pleural effusion, or pneumothorax seen . The cardiac silhouette size is stable and within normal limits. Single-lead pacemaker/defibrilla tor is redemonstrated. The osseous structures are intact. IMPRESSION: No acute cardiopulmonary process. No significant change from prior.
[2022-05-24] MEDS ORDERED: NITROGLYCERIN SL TABS 0.4 MG TAB SUBLINGUAL PRN ×2 (11:59→13:00)
[2022-05-24] MEDS ORDERED: HEPARIN SODIUM 1,000 UN/ML (10ML VL) IV ONE (11:59)
[2022-05-24] MEDS ORDERED: HEPARIN SOD,PORK IN 0.45% NACL 25,000 UNIT in 0.45% NACL 1 250ML.BAG IV SCH (12:15)
[2022-05-24] MEDS ORDERED: ALPRAZolam 0.5 MG TAB PO PRN ×2 (13:00→13:51)
[2022-05-24] MEDS ORDERED: HYDROcodone/APAP 7.5-325MG 1 EACH TAB PO PRN (13:00)
[2022-05-24] MEDS ORDERED: carisoprodoL 350 MG TAB PO PRN (13:00)
[2022-05-24] MEDS ORDERED: ONDANSETRON 4 MG/2 ML VIAL IVP PRN (13:01)
[2022-05-24] MEDS ORDERED: CALCIUM CARBONATE 500 MG CHEWABLE PO PRN (13:01)
[2022-05-24] MEDS ORDERED: TEMAZEPAM 15 MG CAP PO PRN (13:01)
[2022-05-24] MEDS ORDERED: NALOXONE 0.4 MG/ML 1 ML VIAL IV PRN (13:01)
[2022-05-24] MEDS ORDERED: LACTULOSE 20 GM/30 ML CUP PO PRN (13:01)
[2022-05-24] MEDS ORDERED: DEXTROSE 50% SYRINGE 50 ML IVP PRN ×2 (13:02)
--- NOTE | 2022-05-24 13:15 | P.HPIM ---
History of Present Illness H&P Date: 05/24/22 Chief Complaint: Chest pain This is a pleasant 56-year-old patient who follows with Dr. Smith. 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 Chronic stable medical conditions include CAD with stent to RCA, AICD, hypertension, chronic low back pain from herniated disc and follows up with the pain clinic in [address] [place] [address]. Patient is accompanied by his in the ER. This morning woke up from sleep central sternal chest pressure. Wean down the left arm. Also felt short of breath. Lasted for about 2 hours. Patient has continued to smoke cigarettes. Admitted unstable angina. Currently chest pain-free. Review of systems: GEN.: Tired EYES: None HEENT: None NECK: None RESPIRATORY: None CARDIOVASCULAR: As above GASTROINTESTINAL: None GENITOURINARY: None MUSCULOSKELETAL: None LYMPHATICS: None HEMATOLOGICAL: None PSYCHIATRY: None NEUROLOGICAL: None Past medical history to include: CAD with stent to RCA in 2019, AICD, essential hypertension, chronic low back pain from herniated disc, back spasms, Social history: Smoking a pack a day for 34 years. 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 Alcohol occasionally. . Physical examination: VITAL SIGNS: 98.3, 66, 20, 151/105, 99% room air GENERAL: BMI 27.5, declining a bit of a comfortable. EYES: Pupils equal. Conjunctiva normal. HEENT: External appearance of nose and ears normal, oral cavity grossly normal. NECK: JVD not raised; masses not palpable. HEART: First and second heart sounds are normal; no edema. LUNGS: Respiratory rate normal; decreased breath sounds. ABDOMEN: Soft, nontender, liver spleen not palpable, no masses palpable. PSYCH: Alert and oriented x3; mood and affect normal. MUSCULOSKELETAL:No Clubbing/cyanosis;muscles-grossly intact NEUROLOGICAL: Cranial nerves grossly intact; no facial asymmetry, power and sensation grossly intact. LYMPHATICS: No lymph nodes palpable in the axilla and neck INVESTIGATIONS, reviewed in the clinical context: White count 7 hemoglobin 15.4 platelets 225 sodium 139 potassium 4.1 creatinine 0.8 Troponin I 0.138 EKG tracing personally reviewed by me-normal sinus rhythm. Abnormal T waves in lead 1 aVL V5 V6 Chest x-ray film personally reviewed by me-hyperinflation. AICD Assessment and plan: -Acute non-Q-wave [place]. Aspirin. IV heparin. Beta sara. Telemetry. Cardiology consulted -Anxiety not otherwise specified Xanax when necessary -Hyperlipidemia Lipitor 80 mg daily at bedtime -Lower back pain with herniated disc [place] 7.5 when necessary. Soma when necessary -Diabetes mellitus type 2 on oral hypoglycemic Hold metformin. Follow Accu-Cheks with sliding scale -CAD with stent to RCA 2018 -Hypertropic cardiomyopathy history -COPD in a current smoker Albuterol when necessary -Chronic nicotine dependence, cigarette smoker Nicotine patch -We'll code Discussed with the patient and . Cardiology consulted. IV heparin. Past Medical History Past Medical History: Coronary Artery Disease (CAD), Diabetes Mellitus, Hypertension Additional Past Medical History / Comment(s): see Dr Brewer H&P. HYPERTENSIVE CARDIOMYOPATHY (HCM),AICD (2014) History of Any Multi-Drug Resistant Organisms: None Reported Past Surgical History: AICD, Heart Catheterization Additional Past Surgical History / Comment(s): heart cath Apr 2014. AICD ([employer]) PER DR. BREWER NOTES Past Anesthesia/Blood Transfusion Reactions: No Reported Reaction Type of Cardiac Device: AICD Device Placement Date:: 06/03/2014 Past Psychological History: No Psychological Hx Reported Smoking Status: Current every day smoker Past Alcohol Use History: Occasional Past Drug Use History: None Reported - Past Family History Father Family Medical History: Diabetes Mellitus, Renal Disease Mother Family Medical History: No Reported History Medications and Allergies Home Medications Medication Instructions Recorded Confirmed Type Metoprolol Succinate (ER) [Toprol 100 mg PO DAILY 04/23/14 01/30/19 History XL] HYDROcodone/APAP 7.5-325MG [[place] 1 tab PO DAILY PRN 05/26/18 01/30/19 History 7.5-325] carisoprodoL [Soma] 350 mg PO DAILY PRN 05/26/18 01/30/19 History Metoprolol Succinate (ER) [Toprol 50 mg PO DAILY 01/30/19 01/30/19 History XL] ALPRAZolam [Xanax] 0.5 mg PO Q6HR PRN #0 tab 01/31/19 Rx Aspirin 81 mg PO DAILY #30 chew 01/31/19 Rx Atorvastatin [Lipitor] 80 mg PO HS #90 tab 01/31/19 Rx Losartan [Cozaar] 25 mg PO DAILY #30 tab 01/31/19 Rx Nitroglycerin Sl Tabs [Nitrostat] 0.4 mg SUBLINGUAL Q5M PRN #25 tab 01/31/19 Rx Prasugrel [Effient] 10 mg PO DAILY #90 tab 01/31/19 Rx metFORMIN HCL [Glucophage] 500 mg PO BID #60 tab 01/31/19 Rx Allergies Allergy/AdvReac Type Severity Reaction Status Date / Time No Known Allergies Allergy Verified 05/24/22 10:22 Physical Exam Vitals: Vital Signs Temp Pulse Resp BP Pulse Ox 05/24/22 11:17 71 18 136/89 05/24/22 11:12 74 20 142/93 05/24/22 11:06 67 18 154/105 05/24/22 10:20 98.3 F 66 20 178/102 99 Intake and Output 05/23/22 05/24/22 05/24/22 22:59 06:59 14:59 Other: Weight 97.069 kg Results CBC & Chem 7: 05/24/22 10:53 05/24/22 10:53 Labs: Abnormal Lab Results - Last 24 Hours (Table) 05/24/22 05/24/22 05/24/22 Range/Units 10:53 10:53 10:53 PT 12.1 H (9.0-12.0) sec INR 1.2 H (<1.2) Glucose 199 H (74-99) mg/dL ALT 53 H (4-49) U/L Troponin I 0.138 H* (0.000-0.034) ng/mL
--- NOTE | 2022-05-24 13:50 | P.CRDCN ---
History of Present Illness Consult date: 05/24/22 History of present illness: HISTORY OF PRESENT ILLNESS: This is a 56 year old male with a past medical history significant for coronary artery disease with previous PCI, hypertrophic cardiomyopathy, single chamber AICD implantation in 2015, hypertension, hyperlipidemia, and diabetes. Patient follows in the office with Dr. Brewer. We have been asked to see the patient in consultation for chest pain. Patient examined at the bedside. Patient states he got home from work this morning and sat down and began having chest pain. The pain was in the middle of his chest and radiated down his left arm. Patient received nitro in the ER with resolution of his chest pain. Patient denies chest pain at the time of examination. Patient states he last took his Eliquis this morning. * EKG reveals sinus mechanism with TWI in lateral leads, similar to EKG in 2019 * Chest xray negative for acute process * Laboratory data: W BC 7.0. Hemoglobin 15.4. Platelet count 225. D-dimer 0.24. Sodium 139. Potassium 4.1. BUN 17. Creatinine 0.80. * Current home cardiac medications include Eliquis 5mg BID, aspirin 81 mg daily, Lipitor 80 mg at night, losartan 25 mg daily, metoprolol succinate 150 mg daily. * Most recent echocardiogram obtained in the office in October 2021 revealed ejection fraction 55%, moderate LVH, interventricular septum is thickened wi thout significant LVOT obstruction consistent with nonobstructive hypertrophic cardiomyopathy. * Cardiac catheterization history: January 2019 revealing critical stenosis of the mid right coronary artery. No evidence of significant obstructive disease in the LAD and left circumflex. Patient underwent stenting of the right coronary artery. REVIEW OF SYSTEMS: At the time of my exam: CONSTITUTIONAL: Denies fever or chills. HEENT: Denies blurred vision, vision changes, or eye pain. Denies hemoptysis CARDIOVASCULAR: Denies chest pain. Denies orthopnea. Denies PND. Denies palpitations RESPIRATORY: Denies shortness of breath. GASTROINTESTINAL: Denies abdominal pain. Denies nausea or vomiting. HEMATOLOGIC: Denies bleeding disorders. GENITOURINARY: Denies any blood in urine. SKIN: Denies pruitis. Denies rash. PHYSICAL EXAM: VITAL SIGNS: Reviewed. GENERAL: Well-developed in no acute distress. HEENT: Head is normocephalic. Pupils are equal, round. Sclerae anicteric. Mucous membranes of the mouth are moist. Neck supple. No JVD or thyromegaly LUNGS: Respirations even and unlabored. Lungs essentially clear to auscultation bilaterally. HEART: Regular rate and rhythm. S1 and S2 heard. + systolic murmur noted. ABDOMEN: Soft. Nondistended. Nontender. EXTREMITIES: Normal range of motion. No clubbing or cyanosis. Peripheral pulses intact. No lower extremity edema NEUROLOGIC: Awake and alert. Oriented x 3. ASSESSMENT: NSTEMI Coronary artery disease with previous PCI to RCA, 2019 Paroxysmal atrial fibrillation, on Eliquis outpatient History of hypertrophic cardiomyopathy History of single chamber AICD implantation in 2014 Hypertension Hyperlipidemia Diabetes Nicotine dependence PLAN: Obtain 2D echo to assess cardiac structure and function Hold Eliquis. Begin IV heparin (no bolus per Dr. Huston) Hold Metformin Resume additional home cardiac medications Patient to undergo cardiac cath tomorrow with Dr. Baez Further recommendations pending patient course Nurse practitioner note has been reviewed by physician. Signing provider agrees with the documented findings, assessment, and plan of care. Past Medical History Past Medical History: Coronary Artery Disease (CAD), Diabetes Mellitus, Hypertension Additional Past Medical History / Comment(s): see Dr Brewer H&P. HYPERTENSIVE CARDIOMYOPATHY (HCM),AICD (2014) History of Any Multi-Drug Resistant Organisms: None Reported Past Surgical History: AICD, Heart Catheterization Additional Past Surgical History / Comment(s): heart cath Apr 2014. AICD ([employer]) PER DR. BREWER NOTES Past Anesthesia/Blood Transfusion Reactions: No Reported Reaction Type of Cardiac Device: AICD Device Placement Date:: 06/03/2014 Past Psychological History: No Psychological Hx Reported Smoking Status: Current every day smoker Past Alcohol Use History: Occasional Past Drug Use History: None Reported - Past Family History Father Family Medical History: Diabetes Mellitus, Renal Disease Mother Family Medical History: No Reported History Medications and Allergies Home Medications Medication Instructions Recorded Confirmed Type Metoprolol Succinate (ER) [Toprol 100 mg PO DAILY 04/23/14 05/24/22 History XL] HYDROcodone/APAP 7.5-325MG [[place] 1 tab PO BID PRN 05/26/18 05/24/22 History 7.5-325] Metoprolol Succinate (ER) [Toprol 50 mg PO DAILY 01/30/19 05/24/22 History XL] Aspirin 81 mg PO DAILY #30 chew 01/31/19 05/24/22 Rx Atorvastatin [Lipitor] 80 mg PO HS #90 tab 01/31/19 05/24/22 Rx Losartan [Cozaar] 25 mg PO DAILY #30 tab 01/31/19 05/24/22 Rx Nitroglycerin Sl Tabs [Nitrostat] 0.4 mg SUBLINGUAL Q5M PRN #25 tab 01/31/19 05/24/22 Rx Apixaban [Eliquis] 5 mg PO BID 05/24/22 05/24/22 History Ibuprofen [Motrin] 800 mg PO Q8H PRN 05/24/22 05/24/22 History [place]-3/Dha/Epa/Fish Oil [Fish Oil 1 cap PO DAILY 05/24/22 05/24/22 History 1,000 mg Softgel] metFORMIN HCL 1,000 mg PO BID 05/24/22 05/24/22 History Allergies Allergy/AdvReac Type Severity Reaction Status Date / Time No Known Allergies Allergy Verified 05/24/22 13:20 Physical Exam Vitals: Vital Signs Temp Pulse Resp BP Pulse Ox 05/24/22 11:17 71 18 136/89 05/24/22 11:12 74 20 142/93 05/24/22 11:06 67 18 154/105 05/24/22 10:20 98.3 F 66 20 178/102 99 Intake and Output 05/23/22 05/24/22 05/24/22 22:59 06:59 14:59 Other: Weight 97.069 kg Results 05/24/22 10:53 05/24/22 10:53 Cardiac Enzymes 05/24/22 05/24/22 Range/Units 10:53 10:53 AST 33 (17-59) U/L Troponin I 0.138 H* (0.000-0.034) ng/mL Coagulation 05/24/22 Range/Units 10:53 PT 12.1 H (9.0-12.0) sec APTT 28.0 (22.0-30.0) sec CBC 05/24/22 Range/Units 10:53 WBC 7.0 (3.8-10.6) k/uL RBC 5.09 (4.30-5.90) m/uL Hgb 15.4 (13.0-17.5) gm/dL Hct 44.1 (39.0-53.0) % Plt Count 225 (150-450) k/uL Comprehensive Metabolic Panel 05/24/22 Range/Units 10:53 Sodium 139 (137-145) mmol/L Potassium 4.1 (3.5-5.1) mmol/L Chloride 105 (98-107) mmol/L Carbon Dioxide 25 (22-30) mmol/L BUN 17 (9-20) mg/dL Creatinine 0.80 (0.66-1.25) mg/dL Glucose 199 H (74-99) mg/dL Calcium 9.4 (8.4-10.2) mg/dL AST 33 (17-59) U/L ALT 53 H (4-49) U/L Alkaline Phosphatase 59 (38-126) U/L Total Protein 6.9 (6.3-8.2) g/dL Albumin 4.4 (3.5-5.0) g/dL Current Medications Generic Name Dose Route Start Last Admin Trade Name Freq PRN Reason Stop Dose Admin Aspirin 325 mg 05/25/22 09:00 Aspirin 325 Mg Tab PO DAILY [facility] Heparin Sodium/Sodium Chloride 250 mls @ 10 mls/hr 05/24/22 12:15 25,000 unit/ Sodium Chloride IV .Q24H [facility] Protocol 10.302 UNITS/KG/HR Nitroglycerin 0.4 mg 05/24/22 11:59 Nitroglycerin Sl Tabs 0.4 Mg Tab SUBLINGUAL Q5M PRN Chest Pain Nitroglycerin 1 inch 05/24/22 12:00 Nitroglycerin Oint 1 Inch/Gm Packet TOPICAL Q6HR [facility] Sodium Chloride 10 ml 05/24/22 21:00 Sodium Chloride 0.9% Flush 10 Ml Syringe IV BID [facility] Intake and Output 05/23/22 05/24/22 05/24/22 22:59 06:59 14:59 Other: Weight 97.069 kg Patient Weight 05/25/22 06:59 Weight 97.069 kg 05/24/22 10:53 05/24/22 10:53
[2022-05-24] MEDS ORDERED: ALPRAZolam 0.25 MG TAB PO PRN (13:51)
[2022-05-24] MEDS: NITROGLYCERIN OINT 1 INCH/GM PACKET TOPICAL SCH ×3 (14:06→18:35)
[2022-05-24 16:27] LABS: Glucose,Whole Blood 144 mg/dL (70-110)
[2022-05-24] MEDS: INSULIN ASPART (NovoLOG) 100 UNIT/ML VIAL SQ SCH (16:32)
[2022-05-24] MEDS ORDERED: metFORMIN 500 MG TAB PO SCH ×2 (17:30→21:00)
[2022-05-24] MEDS: ATORVASTATIN 80 MG TAB PO SCH (19:57)
[2022-05-24] MEDS: SODIUM CHLORIDE 0.9% 1,000 ML in EMPTY BAG 1 BAG IV SCH (19:58)
[2022-05-24] MEDS ORDERED: APIXABAN 5 MG TAB PO SCH (21:00)
[2022-05-25] MEDS: NITROGLYCERIN OINT 1 INCH/GM PACKET TOPICAL SCH ×2 (00:48→06:25)
[2022-05-25] MEDS ORDERED: ATORVASTATIN 80 MG TAB PO ONE (05:00)
[2022-05-25] MEDS ORDERED: ASPIRIN 325 MG TAB PO ONE (05:00)
[2022-05-25 05:57] LABS: Glucose,Whole Blood 139 mg/dL (70-110)
[2022-05-25] MEDS: INSULIN ASPART (NovoLOG) 100 UNIT/ML VIAL SQ SCH ×3 (06:16→16:26)
[2022-05-25] MEDS: METOPROLOL SUCCINATE (ER) 50 MG TAB.ER.24H PO SCH (06:24)
[2022-05-25] MEDS: LOSARTAN 25 MG TAB PO SCH (06:24)
[2022-05-25] MEDS ORDERED: HEPARIN SODIUM,PORCINE 2,500 UNIT in SODIUM CHLORIDE 0.9% 250 ML IRRIGATION PRN (07:00)
[2022-05-25] MEDS ORDERED: HEPARIN SODIUM,PORCINE 10,000 UNIT in SODIUM CHLORIDE 0.9% 1,000 ML IRRIGATION PRN (07:00)
[2022-05-25] MEDS: SODIUM CHLORIDE 0.9% 1,000 ML in EMPTY BAG 1 BAG IV SCH ×2 (07:43→15:18)
[2022-05-25] MEDS ORDERED: METOPROLOL SUCCINATE (ER) 100 MG TAB.ER.24H PO SCH (09:00)
[2022-05-25] MEDS ORDERED: ASPIRIN 325 MG TAB PO SCH (09:00)
[2022-05-25] MEDS ORDERED: PRASUGREL 10 MG TAB PO SCH (09:00)
[2022-05-25] MEDS ORDERED: VERAPAMIL 2.5 MG/ML 2 ML AMP ONE (09:05)
[2022-05-25] MEDS ORDERED: fentaNYL (PF) 50 MCG/ML 2 ML AMP ONE (09:14)
[2022-05-25] MEDS ORDERED: HEPARIN SODIUM 1,000 UN/ML (10ML VL) ONE (09:14)
[2022-05-25 09:22] LABS: Mean Platelet Volume 7.4; Platelet Count 219 k/uL (150-450)
[2022-05-25] MEDS ORDERED: fentaNYL (PF) 50 MCG/ML 2 ML AMP IV ONE (09:27)
[2022-05-25] MEDS ORDERED: SODIUM CHLORIDE 0.9% 1,000 ML IV ONE (09:27)
[2022-05-25] MEDS ORDERED: LIDOCAINE 1% INJ 10MG/ML (5 ML VIAL-PF) SQ ONE ×2 (09:29→09:31)
[2022-05-25] MEDS ORDERED: MIDAZOLAM 2 MG/2 ML VIAL IV ONE ×2 (09:30→10:08)
[2022-05-25] MEDS ORDERED: VERAPAMIL SYRINGE (5 MG/10 ML) INTRAARTER ONE (09:34)
[2022-05-25] MEDS ORDERED: HEPARIN SODIUM 1,000 UN/ML (10ML VL) IV ONE ×4 (09:37→10:16)
[2022-05-25] MEDS ORDERED: CLOPIDOGREL 75 MG TAB ONE (09:45)
[2022-05-25] MEDS ORDERED: CLOPIDOGREL 75 MG TAB PO ONE (09:47)
[2022-05-25] MEDS ORDERED: NITROGLYCERIN 1000MCG/10ML SYRINGE INTRACORON ONE ×2 (09:54→10:30)
[2022-05-25] MEDS ORDERED: IOPAMIDOL-370 125ML BTL INJ ONE (09:59)
[2022-05-25] MEDS ORDERED: HYDROmorphone 0.5 MG/0.5 ML SYRINGE IVP ONE (10:29)
[2022-05-25] MEDS ORDERED: IOPAMIDOL-370 100ML BTL INJ ONE (10:34)
[2022-05-25] MEDS ORDERED: ZOLPIDEM 5 MG TAB PO PRN (10:45)
[2022-05-25] MEDS ORDERED: ATROPINE SULFATE 0.1 MG/ML 10ML SYRINGE IV PRN (10:45)
[2022-05-25] MEDS ORDERED: SODIUM CHLORIDE 0.9% 1,000 ML in EMPTY BAG 1 BAG IV SCH (10:45)
[2022-05-25] MEDS ORDERED: NITROGLYCERIN SL TABS 0.4 MG TAB SUBLINGUAL PRN (10:45)
[2022-05-25] MEDS ORDERED: RX INFO: IV CONTRAST WAS GIVEN 1 EACH MISC MISCELLANE PRN (10:45)
[2022-05-25] MEDS ORDERED: MAG HYDROX/AL HYDROX/SIMETH 30 ML CUP PO PRN (10:45)
[2022-05-25] MEDS ORDERED: amLODIPine 5 MG TAB PO STA (10:55)
--- NOTE | 2022-05-25 10:56 | P.CARDCATH ---
Date of Procedure: 05/25/22 Description of Procedure: Cardiac Catheterization: The patient is a 56-year-old male with a known history of hypertrophic cardiomyopathy, ICD implantation, history of CAD and stenting of the RCA who presented with chest discomfort, mild troponin elevation insistent with non- STEMI. He was evaluated by Dr. Huston. Recommendations were made regarding cardiac catheterization, the risks and the complications were discussed with the patient who is in full understanding and agreement. 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 Using Xylocaine Anesthesia and Seldinger technique, a 6-English sheath was introduced in the right radial artery . Subsequently, selective coronary angiography was performed using a 5-English 3.5 bend Bobby catheter. Multiple views of the coronary artery including hemiaxial views were obtained. The right Bobby catheter was used to cross the aortic valve and LVEDP was calculated. After removing the catheter 6-English 0.75 AL guiding catheter was introduced and after cannulating the right coronary ostium a 0.014 BMW J-wire was positioned in the distal RCA subsequently a 3.0 x 12 mm Treck was advanced into inflation at 8 darius were done. Subsequently a 4.0 x 18 mm Xience Skypoint stent was deployed at 16 darius after removing the balloon an IVUS [place] Eye catheter was introduced and imaging were obtained subsequently a 5.0 x 15 mm NC Treck was advanced and inflation at 12 darius were done. Repeat intravascular ultrasound images were obtained, after removing the catheter a 4.5 x 23 mm Xience Skypoint was deployed proximally at 16 darius, repeat ultrasound imaging was performed and a 5.0 x 15 mm NC balloon was readvanced and inflations were done at 10 darius. After removing the balloon and the wire images were obtained and revealed stable successful stenting. Following that, catheter and sheath were removed. Hemostasis was obtained with deployment of TR band . There was no immediate complication. Patient was returned to room in stable condition. Of note, the patient received a total of 12,000 units of intravenous heparin as well as intra-arterial verapamil. He received an oral loading dose of clopidogrel. His ACT was followed. He had chest discomfort and EKG changes during the procedure. His EKG changes resolved and his chest discomfort improved. Findings: Left main: This is a large-size vessel, bifurcating into LAD and left cir cumflex, left main has no high-grade stenosis LAD: This is a large-size vessel, reaching to the apex giving rise to a large diagonal branch, the LAD has no high-grade stenosis. Left circumflex: This is a large nondominant vessel giving rise to 2 obtuse marginal branch, left circumflex and its branches have no evidence of high-grade stenosis RCA: This is a large dominant vessel, bifurcating PDA and PLV. The proximal RCA has a complex lesion of 99% with what appears to be a ulcerated plaque. The stented segment in the mid RCA is patent with no evidence of in-stent restenosis Left Ventriculogram: Not performed Hemodynamics: There was no gradient across the aortic valve, LVEDP was 20 mmHg Conclusion: 1. Complex severe stenosis in the proximal RCA 2. Patent stent in the mid RCA 3. No obstructive disease in the LAD and left circumflex 4. Successful stenting of the proximal RCA with reduction of stenosis from 99% to less than 5% with intravascular ultrasound imaging Recommendations: The patient will continue on aspirin and Plavix for 1 year without any interruption in addition to aggressive coronary risks modifications. The findings and the recommendations were discussed with the patient and the family and they were in full understanding and agreement. Duration of sedation is 68 minutes.
[2022-05-25] MEDS ORDERED: MORPHINE SULFATE 2 MG/ML SYRINGE IVP STA (11:09)
[2022-05-25 11:31] LABS: Glucose,Whole Blood 184 mg/dL (70-110)
[2022-05-25] MEDS: NITROGLYCERIN SL TABS 0.4 MG TAB SUBLINGUAL PRN ×3 (12:17→12:32)
[2022-05-25 13:49] VITALS: BMI 27.5
--- NOTE | 2022-05-25 14:14 | PN ---
PROGRESS NOTE Mr. Jay has non-ST elevation WA. He is comfortable, asymptomatic, today is going for a coronary angiography, possible PCI if indicated. Vitals are stable. No JVD. S1 and S2 heard normally. Lungs are clear. Abdomen and lower extremities unchanged. MMODL / IJN: [id number] /
[2022-05-25 15:05] LABS: Chol/HDL Ratio 3.87 Ratio; LDL Cholesterol,Calculated 51.9 mg/dL (0.0-131.0)
--- NOTE | 2022-05-25 15:11 | P.PN ---
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 Chronic stable medical conditions include CAD with stent to RCA, AICD, hypertension, chronic low back pain from herniated disc and follows up with the pain clinic in [address] [place] [address]. Patient is accompanied by his in the ER. This morning woke up from sleep central sternal chest pressure. Wean down the left arm. Also felt short of breath. Lasted for about 2 hours. Patient has continued to smoke cigarettes. Admitted unstable angina. Currently chest pain-free. Admitted with acute non-Q-wave [place]. Started on IV heparin. 05/25/2022: Cardiac catheterization with Dr. TRACEY today. Stent placement to proximal RCA. Post intervention some chest pain. Being followed by cardiology. IV heparin Active Medications Hydrocodone Bitart/Acetaminophen (Hydrocodone/Apap 7.5-325mg 1 Each Tab) 1 each PO DAILY PRN PRN Reason: Pain Last Admin: 05/25/22 00:40 Dose: 1 each Al Hydroxide/Mg Hydroxide (Mag Hydrox/Al Hydrox/Simeth 30 Ml Cup) 30 ml PO Q4HR PRN PRN Reason: Heartburn Alprazolam (Alprazolam 0.25 Mg Tab) 0.25 mg PO Q6HR PRN PRN Reason: Mild Anxiety Alprazolam (Alprazolam 0.5 Mg Tab) 0.5 mg PO Q6HR PRN PRN Reason: Moderate Anxiety Aspirin (Aspirin 81 Mg) 81 mg PO DAILY [facility] Atorvastatin Calcium (Atorvastatin 80 Mg Tab) 80 mg PO HS [facility] Last Admin: 05/24/22 19:57 Dose: 80 mg Atropine Sulfate (Atropine Sulfate 0.1 Mg/Ml 10ml Syringe) 0.5 mg IV ONCE PRN PRN Reason: Symptomatic Bradycardia Calcium Carbonate/Glycine (Calcium Carbonate 500 Mg Chewable) 1,000 mg PO Q4HR PRN PRN Reason: Dyspepsia Clopidogrel Bisulfate (Clopidogrel 75 Mg Tab) 75 mg PO DAILY [facility]; Protocol Dextrose/Water (Dextrose 50% Syringe 50 Ml) 25 ml IVP PER PROTOCOL PRN; Protocol PRN Reason: Hypoglycemia Dextrose/Water (Dextrose 50% Syringe 50 Ml) 50 ml IVP PER PROTOCOL PRN; Protocol PRN Reason: Hypoglycemia Heparin Sodium (Porcine) 10, (000 unit/ Sodium Chloride) 1,001 mls @ 999 mls/hr IRRIGATION ONCE PRN PRN Reason: INTRA-OP Stop: 05/25/22 23:00 Heparin Sodium (Porcine) 2,500 (unit/ Sodium Chloride) 250.5 mls @ 250 mls/hr IRRIGATION ONCE PRN PRN Reason: INTRA-OP Stop: 05/25/22 23:00 Sodium Chloride 1,000 ml/ IV (Solution) 1,000 mls @ 97.069 mls/hr IV .[id number] [facility] Last Admin: 05/25/22 07:43 Dose: 97.069 mls/hr Insulin Aspart (Insulin Aspart (Novolog) 100 Unit/Ml Vial) 0 unit SQ AC-TID [facility]; Protocol Last Admin: 05/25/22 11:55 Dose: Not Given Lactulose (Lactulose 20 Gm/30 Ml Cup) 20 gm PO DAILY PRN PRN Reason: Constipation Losartan Potassium (Losartan 25 Mg Tab) 25 mg PO DAILY [facility] Last Admin: 05/25/22 06:24 Dose: 25 mg Metoprolol Succinate (Metoprolol Succinate (Er) 50 Mg Tab.Er.24h) 150 mg PO DAILY [facility] Last Admin: 05/25/22 06:24 Dose: 150 mg Miscellaneous Information (Rx Info: Iv Contrast Was Given 1 Each Misc) 1 each MISCELLANE DAILY PRN PRN Reason: Per Protocol Stop: 05/27/22 10:45 Naloxone HCl (Naloxone 0.4 Mg/Ml 1 Ml Vial) 0.2 mg IV Q2M PRN PRN Reason: Opioid Reversal Nitroglycerin (Nitroglycerin Sl Tabs 0.4 Mg Tab) 0.4 mg SUBLINGUAL Q5M PRN PRN Reason: Chest Pain Last Admin: 05/25/22 12:32 Dose: 0.4 mg Ondansetron HCl (Ondansetron 4 Mg/2 Ml Vial) 4 mg IVP Q8HR PRN PRN Reason: Nausea And Vomiting Sodium Chloride (Sodium Chloride 0.9% Flush 10 Ml Syringe) 10 ml IV BID [facility] Last Admin: 05/25/22 06:24 Dose: 10 ml Temazepam (Temazepam 15 Mg Cap) 15 mg PO HS PRN PRN Reason: Insomnia Zolpidem Tartrate (Zolpidem 5 Mg Tab) 5 mg PO HS PRN PRN Reason: Insomnia Past medical history to include: CAD with stent to RCA in 2019, AICD, essential hypertension, chronic low back pain from herniated disc, back spasms, Social history: Smoking a pack a day for 34 years. 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 Alcohol occasionally. . Physical examination: VITAL SIGNS: 98, 65, 20, 1 58/87, 96% on 2 L GENERAL: Sitting on the edge of the bed, EYES: Pupils equal. Conjunctiva normal. HEENT: External appearance of nose and ears normal, oral cavity grossly normal. NECK: JVD not raised; masses not palpable. HEART: First and second heart sounds are normal; no edema. LUNGS: Respiratory rate normal; decreased breath sounds. ABDOMEN: Soft, nontender, liver spleen not palpable, no masses palpable. PSYCH: Alert and oriented x3; mood and affect anxious. MUSCULOSKELETAL:No Clubbing/cyanosis;muscles-grossly intact INVESTIGATIONS, reviewed in the clinical context: LDL 51 White count 7 hemoglobin 15.4 platelets 225 sodium 139 potassium 4.1 creatinine 0.8 Troponin I 0.138, 0.257, 0.545 EKG tracing personally reviewed by me-normal sinus rhythm. Abnormal T waves in lead 1 aVL V5 V6 Chest x-ray film personally reviewed by me-hyperinflation. AICD Assessment and plan: -Acute non-Q-wave HI. Aspirin. IV heparin. Beta sara. Telemetry. Cardiology following -Stent to proximal RCA. By Dr. Baez May 25 -Anxiety not otherwise specified Xanax when necessary -IV heparin monitoring Follow PTT -Hyperlipidemia Lipitor 80 mg daily at bedtime -Lower back pain with herniated disc [place] 7.5 when necessary. Soma when necessary -Diabetes mellitus type 2 on oral hypoglycemic Hold metformin. Follow Accu-Cheks with sliding scale -CAD with stent to RCA 2018 -Hypertropic cardiomyopathy history -COPD in a current smoker Albuterol when necessary -Chronic nicotine dependence, cigarette smoker Nicotine patch -. full code Status post stent to proximal RCA. IV heparin. Post intervention chest pain. Follow with cardiology.
[2022-05-25 15:35] VITALS: TEMP 97.9
[2022-05-25 16:11] LABS: Glucose,Whole Blood 213 mg/dL (70-110)
[2022-05-25] MEDS ORDERED: amLODIPine 5 MG TAB PO PRN (16:14)
[2022-05-25 20:04] LABS: Glucose,Whole Blood 196 mg/dL (70-110)
[2022-05-25] MEDS: ATORVASTATIN 80 MG TAB PO SCH (20:10)
[2022-05-26 06:29] LABS: Glucose,Whole Blood 171 mg/dL (70-110)
[2022-05-26] MEDS: INSULIN ASPART (NovoLOG) 100 UNIT/ML VIAL SQ SCH ×2 (06:52→12:08)
[2022-05-26] MEDS: SODIUM CHLORIDE 0.9% 1,000 ML in EMPTY BAG 1 BAG IV SCH (06:52)
[2022-05-26] MEDS: LOSARTAN 25 MG TAB PO SCH (08:17)
[2022-05-26] MEDS: METOPROLOL SUCCINATE (ER) 50 MG TAB.ER.24H PO SCH (08:17)
[2022-05-26 08:21] VITALS: BP 143/75; PULSE 65; RESP 16
--- NOTE | 2022-05-26 08:47 | CA ---
Transthoracic Echo Report Name: oBb Jay Age: 56 Gender: M : 1965 Exam Date: 05/25/2022 12:34 Exam Location: [facility] Ht (in): 74 Wt (lb): 214 Ordering Physician: Josie Pelletier Attending/Referring Phys: [id number], Prabhu Model Making Supervisor Shani Hernandez RDCS Procedure CPT: Indications: LV function, NSTEMI Cardiac Hx: Technical Quality: Fair Contrast 1: Total Dose (mL): Contrast 2: Total Dose (mL): MEASUREMENTS (Male / Female) Normal Values 2D ECHO LV Diastolic Diameter PLAX 4.8 cm 4.2 - 5.9 / 3.9 - 5.3 cm LV Systolic Diameter PLAX 3.0 cm IVS Diastolic Thickness 1.5 cm 0.6 - 1.0 / 0.6 - 0.9 cm LVPW Diastolic Thickness 1.7 cm 0.6 - 1.0 / 0.6 - 0.9 cm LV Relative Wall Thickness 0.7 RV Internal Dim ED PLAX 3.8 cm LA Volume 68.8 cm??? 18 - 58 / 22 - 52 cm??? M-MODE Aortic Root Diameter MM 3.1 cm LA Systolic Diameter MM 3.6 cm LA Ao Ratio MM 1.2 AV Cusp Separation MM 1.7 cm DOPPLER AV Peak Velocity 165.5 cm/s AV Peak Gradient 11.0 mmHg AV Mean Velocity 114.2 cm/s AV Mean Gradient 6.1 mmHg AV Velocity Time Integral 30.4 cm LVOT Peak Velocity 98.3 cm/s LVOT Peak Gradient 3.9 mmHg LVOT Velocity Time Integral 18.2 cm MV Area PHT 3.1 cm??? Mitral E Point Velocity 75.7 cm/s Mitral A Point Velocity 66.0 cm/s Mitral E to A Ratio 1.1 MV Deceleration Time 245.7 ms MV E' Velocity 3.9 cm/s Mitral E to MV E' Ratio 19.6 TR Peak Velocity 224.6 cm/s TR Peak Gradient 20.2 mmHg Right Ventricular Systolic Press 24.9 mmHg FINDINGS Left Ventricle Moderately increased left ventricular wall thickness. No obvious regional wall motion abnormalities. Left ventricular ejection fraction is estimated at 50-55 %. Right Ventricle Mild right ventricular dilatation. Right ventricular systolic pressure within normal limits. Right Atrium Normal right atrial size. Catheter/pacemaker wire in the right atrial cavity. Left Atrium Mildly increased left atrial volume. Mildly increased left atrial area. Mitral Valve Structurally normal mitral valve. Mild mitral regurgitation. Aortic Valve No aortic valve stenosis or regurgitation. Tricuspid Valve Structurally normal tricuspid valve. Mild tricuspid regurgitation. Pulmonic Valve Structurally normal pulmonic valve. Pericardium No pericardial effusion. Aorta Normal size aortic root and proximal ascending aorta. CONCLUSIONS Normal LV systolic function Mildly dilated RV with normal function Normal pulmonary artery systolic pressure Mild mitral regurgitation No evidence of pericardial effusion Previewed by: Dr. Haresh Dent MD (Electronically Signed) Final Date: 26 May 2022 08:46
[2022-05-26] MEDS ORDERED: ASPIRIN 81 MG PO SCH (09:00)
[2022-05-26] MEDS ORDERED: CLOPIDOGREL 75 MG TAB PO SCH (09:00)
[2022-05-26 09:51] LABS: Mean Platelet Volume 7.1; Platelet Count 211 k/uL (150-450)
[2022-05-26 10:05] LABS: African American GFR (CKD) >90 (>60 ml/min/1.73 sqM); Non-African American GFR(CKD) >90 (>60 ml/min/1.73 sqM)
--- NOTE | 2022-05-26 11:03 | P.PN ---
Subjective Progress Note Date: 05/26/22 HISTORY OF PRESENT ILLNESS: This is a 56 year old male with a past medical history significant for coronary artery disease with previous PCI, hypertrophic cardiomyopathy, single chamber AICD implantation in 2015, hypertension, hyperlipidemia, and diabetes. Patient follows in the office with Dr. Brewer. We have been asked to see the patient in consultation for chest pain. Patient examined at the bedside. Patient states he got home from work this morning and sat down and began having chest pain. The pain was in the middle of his chest and radiated down his left arm. Patient re ceived nitro in the ER with resolution of his chest pain. Patient denies chest pain at the time of examination. Patient states he last took his Eliquis this morning. * EKG reveals sinus mechanism with TWI in lateral leads, similar to EKG in 2019 * Chest xray negative for acute process * Laboratory data: W BC 7.0. Hemoglobin 15.4. Platelet count 225. D-dimer 0.24. Sodium 139. Potassium 4.1. BUN 17. Creatinine 0.80. * Current home cardiac medications include Eliquis 5mg BID, aspirin 81 mg daily, Lipitor 80 mg at night, losartan 25 mg daily, metoprolol succinate 150 mg daily. * Most recent echocardiogram obtained in the office in October 2021 revealed ejection fraction 55%, moderate LVH, interventricular septum is thickened without significant LVOT obstruction consistent with nonobstructive hypertrophic cardiomyopathy. * Cardiac catheterization history: January 2019 revealing critical stenosis of the mid right coronary artery. No evidence of significant obstructive disease in the LAD and left circumflex. Patient underwent stenting of the right coronary artery. 05/26/2022 Patient examined this morning at the bedside. Patient is status post cardiac catheterization with PCI to the proximal RCA. Patient denies any further episodes of chest pain or pressure. He denies shortness of breath. Vital signs are stable. echocardiogram completed revealing ejection fraction 50-55%. PHYSICAL EXAM: VITAL SIGNS: Reviewed. GENERAL: Well-developed in no acute distress. HEENT: Head is normocephalic. Pupils are equal, round. Sclerae anicteric. Mucous membranes of the mouth are moist. Neck supple. No JVD or thyromegaly LUNGS: Respirations even and unlabored. Lungs essentially clear to auscultation bilaterally. HEART: Regular rate and rhythm. S1 and S2 heard. + systolic murmur noted. ABDOMEN: Soft. Nondistended. Nontender. EXTREMITIES: Normal range of motion. No clubbing or cyanosis. Peripheral pulses intact. No lower extremity edema NEUROLOGIC: Awake and alert. Oriented x 3. ASSESSMENT: NSTEMI, s/p PCI to RCA Coronary artery disease with previous PCI to RCA, 2019 Paroxysmal atrial fibrillation, on Eliquis outpatient History of hypertrophic cardiomyopathy History of single chamber AICD implantation in 2014 Hypertension Hyperlipidemia Diabetes Nicotine dependence PLAN: Continue aspirin and plavix. Resume Eliquis. Triple therapy for 1 month. Continue additional cardiac medications Smoking cessation strongly encouraged Patient may be discharged home today from a cardiac standpoint Nurse practitioner note has been reviewed by physician. Signing provider agrees with the documented findings, assessment, and plan of care. Objective - Vital Signs Vital signs: Vital Signs Temp 97.9 F 05/25/22 15:15 Pulse 65 05/26/22 08:00 Resp 16 05/26/22 08:00 BP 143/75 05/26/22 08:00 Pulse Ox 98 05/26/22 08:29 FiO2 21 05/25/22 19:59 Intake & Output 05/25/22 05/26/22 05/26/22 18:59 06:59 18:59 Intake Total 498 118 Balance 498 118 Weight 97.2 kg Intake: IV 200 Oral 298 118 Other: Voiding Method Toilet Toilet # Voids 3 1 - Labs CBC & Chem 7: 05/26/22 09:28 05/26/22 09:28 Labs: Abnormal Lab Results - Last 24 Hours (Table) 05/25/22 05/25/22 05/25/22 Range/Units 07:32 11:29 16:10 POC Glucose (mg/dL) 184 H 213 H (70-110) mg/dL Triglycerides 215.00 H (0.00-149.00) mg/dL VLDL Cholesterol, Calc 43.00 H (5.00-40.00) mg/dL HDL Cholesterol 33.10 L (40.00-60.00) mg/dL 05/25/22 05/26/22 Range/Units 20:03 06:25 POC Glucose (mg/dL) 196 H 171 H (70-110) mg/dL Triglycerides (0.00-149.00) mg/dL VLDL Cholesterol, Calc (5.00-40.00) mg/dL HDL Cholesterol (40.00-60.00) mg/dL
[2022-05-26] MEDS ORDERED: APIXABAN 5 MG TAB PO SCH (11:15)
[2022-05-26 11:32] LABS: Glucose,Whole Blood 218 mg/dL (70-110)
[2022-05-26 11:37] LABS: Basophils # (A) 0.1 k/uL (0-0.2); Basophils % (A) 1 %; Eosinophils # (A) 0.7 k/uL (0-0.7); Eosinophils % (A) 8 %; HCT 45.5 % (39.0-53.0); Lymphocytes % (A) 23 %; MCHC 35.1 g/dL (31.0-37.0); MCV 88.2 fL (80.0-100.0); Mean Platelet Volume 7.3; Monocytes # (A) 0.4 k/uL (0-1.0); Monocytes % (A) 4 %; Neutrophils # (A) 5.5 k/uL (1.3-7.7); Neutrophils % (A) 62 %; Platelet Count 212 k/uL (150-450); RBC 5.16 m/uL (4.30-5.90); RDW 13.3 % (11.5-15.5); WBC 8.9 k/uL (3.8-10.6)
--- NOTE | 2022-05-26 19:58 | P.DS ---
Providers Date of admission: 05/24/22 12:01 Expected date of discharge: 05/26/22 Attending physician: Lonnie Ho Consults: 05/24/22 11:59 Consult Physician Urgent Consulting Provider: Kami Huston Consult Reason/Comments: ua Do you want consulting provider notified?: Yes 05/25/22 10:45 Consult Physician Routine Consulting Provider: [facility] Consult Reason/Comments: Post Interventional Patient Do you want consulting provider notified?: Already Contacted Primary care physician: Gildardo Smith [facility] Course: Chief Complaint: Chest pain This is a pleasant 56-year-old patient who follows with Dr. Smith. 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 Chronic stable medical conditions include CAD with stent to RCA, AICD, hypertension, chronic low back pain from herniated disc and follows up with the pain clinic in [address] [place] [address]. Patient is accompanied by his in the ER. This morning woke up from sleep central sternal chest pressure. Wean down the left arm. Also felt short of breath. Lasted for about 2 hours. Patient has continued to smoke cigarettes. Admitted unstable angina. Currently chest pain-free. Admitted with acute non-Q-wave TX. Started on IV heparin. 05/25/2022: Cardiac catheterization with Dr. Baez today. Stent placement to proximal RCA. Post intervention some chest pain. Being followed by cardiology. IV heparin 05/26/2022: Doing well. Up and about. No cardiac symptoms. Cleared by cardiology Discussed with patient and . Past medical history to include: CAD with stent to RCA in 2019, AICD, essential hypertension, chronic low back pain from herniated disc, back spasms, Social history: Smoking a pack a day for 34 years. 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 Alcohol occasionally. . Physical examination: VITAL SIGNS: 97.9, 65, 16, 143/75, 97% room air GENERAL: Comfortable EYES: Pupils equal. Conjunctiva normal. HEENT: External appearance of nose and ears normal, oral cavity grossly normal. NECK: JVD not raised; masses not palpable. HEART: First and second heart sounds are normal; no edema. LUNGS: Respiratory rate normal; decreased breath sounds. ABDOMEN: Soft, nontender, liver spleen not palpable, no masses palpable. PSYCH: Alert and oriented x3; mood and affect anxious. MUSCULOSKELETAL:No Clubbing/cyanosis;muscles-grossly intact INVESTIGATIONS, reviewed in the clinical context: May 26: White count 8.9 hemoglobin 16 platelets 212 LDL 51 White count 7 hemoglobin 15.4 platelets 225 sodium 139 potassium 4.1 creatinine 0.8 Troponin I 0.138, 0.257, 0.545 EKG tracing personally reviewed by me-normal sinus rhythm. Abnormal T waves in lead 1 aVL V5 V6 Chest x-ray film personally reviewed by me-hyperinflation. AICD Assessment and plan: -Acute non-Q-wave TX. Aspirin. IV heparin. Beta sara. Telemetry. Cardiology following -Stent to proximal RCA. By Dr. Baez May 25 -Anxiety not otherwise specified Xanax when necessary -Hyperlipidemia Lipitor 80 mg daily at bedtime -Lower back pain with herniated disc Gilmer 7.5 when necessary. Soma when necessary -Diabetes mellitus type 2 on oral hypoglycemic Resume in 48 hours-metformin. Follow Accu-Cheks with sliding scale -CAD with stent to RCA 2018 -Hypertropic cardiomyopathy history -COPD in a current smoker Albuterol when necessary -Chronic nicotine dependence, cigarette smoker Nicotine patch -. full code Disposition: Home Plan - Discharge Summary Discharge Rx Participant: No New Discharge Prescriptions: New Clopidogrel [Plavix] 75 mg PO DAILY #30 tab Continue Metoprolol Succinate (ER) [Toprol XL] 100 mg PO DAILY HYDROcodone/APAP 7.5-325MG [Gilmer 7.5-325] 1 tab PO BID PRN PRN Reason: Pain Atorvastatin [Lipitor] 80 mg PO HS #90 tab Aspirin 81 mg PO DAILY #30 chew Nitroglycerin Sl Tabs [Nitrostat] 0.4 mg SUBLINGUAL Q5M PRN #25 tab PRN Reason: Chest Pain Losartan [Cozaar] 25 mg PO DAILY #30 tab metFORMIN HCL 1,000 mg PO BID Shannock-3/Dha/Epa/Fish Oil [Fish Oil 1,000 mg Softgel] 1 cap PO DAILY Apixaban [Eliquis] 5 mg PO BID Discontinued Metoprolol Succinate (ER) [Toprol XL] 50 mg PO DAILY Ibuprofen [Motrin] 800 mg PO Q8H PRN PRN Reason: Pain Or Fever > 100.5 Discharge Medication List Metoprolol Succinate (ER) [Toprol XL] 100 mg PO DAILY 04/23/14 [History] HYDROcodone/APAP 7.5-325MG [Gilmer 7.5-325] 1 tab PO BID PRN 05/26/18 [History] Aspirin 81 mg PO DAILY #30 chew 01/31/19 [Rx] Atorvastatin [Lipitor] 80 mg PO HS #90 tab 01/31/19 [Rx] Losartan [Cozaar] 25 mg PO DAILY #30 tab 01/31/19 [Rx] Nitroglycerin Sl Tabs [Nitrostat] 0.4 mg SUBLINGUAL Q5M PRN #25 tab 01/31/19 [Rx] Apixaban [Eliquis] 5 mg PO BID 05/24/22 [History] Shannock-3/Dha/Epa/Fish Oil [Fish Oil 1,000 mg Softgel] 1 cap PO DAILY 05/24/22 [History] metFORMIN HCL 1,000 mg PO BID 05/24/22 [History] Clopidogrel [Plavix] 75 mg PO DAILY #30 tab 05/26/22 [Rx] Follow up Appointment(s)/Referral(s): Falguni Baez MD [STAFF PHYSICIAN] - 06/04/22 10:30 am Gildardo Smith MD [Primary Care Provider] - 1-2 days Patient Instructions/Handouts: After Radial Heart Catheterization (GEN) Discharge Disposition: HOME SELF-CARE
== END 2022-05-26 12:34 | disposition home or self-care (01) | DRG 247 ==
LOC: EC 10:13 → 3SCARD 12:01
PROVIDERS: ADMIT Hospitalist; ATTEND Hospitalist
PROC: 027035Z Dilation of Coronary Artery, One Artery with Two Drug-eluting Intraluminal Devices, Percutaneous Approach (ICD-10-PCS; principal; 2022-05-25 09:00)
PROC: 4A023N7 Measurement of Cardiac Sampling and Pressure, Left Heart, Percutaneous Approach (ICD-10-PCS; 2022-05-25 09:00)
PROC: B240ZZ3 Ultrasonography of Single Coronary Artery, Intravascular (ICD-10-PCS; 2022-05-25 09:00)
PROC: B2111ZZ Fluoroscopy of Multiple Coronary Arteries using Low Osmolar Contrast (ICD-10-PCS; 2022-05-25 09:00)
DX: I21.4 Non-ST elevation (NSTEMI) myocardial infarction (principal); I42.2 Other hypertrophic cardiomyopathy; I43 Cardiomyopathy in diseases classified elsewhere; I11.9 Hypertensive heart disease without heart failure; E11.9 Type 2 diabetes mellitus without complications; J44.9 Chronic obstructive pulmonary disease, unspecified; I25.110 Atherosclerotic heart disease of native coronary artery with unstable angina pectoris; F17.210 Nicotine dependence, cigarettes, uncomplicated; R01.1 Cardiac murmur, unspecified; I48.0 Paroxysmal atrial fibrillation; M51.26 Other intervertebral disc displacement, lumbar region; G89.29 Other chronic pain; E78.5 Hyperlipidemia, unspecified; F41.9 Anxiety disorder, unspecified; Z95.810 Presence of automatic (implantable) cardiac defibrillator; Z79.899 Other long term (current) drug therapy; Z79.84 Long term (current) use of oral hypoglycemic drugs; Z79.82 Long term (current) use of aspirin; Z95.5 Presence of coronary angioplasty implant and graft; Z79.01 Long term (current) use of anticoagulants; Z79.02 Long term (current) use of antithrombotics/antiplatelets
CPT/HCPCS: 36415; 71046; 80053; 80061; 82565; 83735; 84484; 85025; 85049; 85379; 85610; 85730; 92978; 93005; 93306; 93458; 94760; 96374; 99291

== ENCOUNTER 2022-06-04 10:16 | Emergency (ER) | payer BC ==
--- NOTE | 2022-06-04 10:58 | ED ---
SOB HPI - General Chief Complaint: Shortness of Breath Stated Complaint: Chest Pain Time Seen by Provider: 06/04/22 10:37 Source: patient, RN notes reviewed Mode of arrival: EMS Limitations: no limitations - History of Present Illness Initial Comments: This is a 56-year-old male who presents to the emergency department for chest pain, shortness of breath, and weakness starting last night. He also reports dark tarry stools starting last night as well. Patient denies any history of dark tarry stools. He is also experiencing generalized lower abdominal pain. Denies any associated constipation or diarrhea. With regards to the shortness of breath, he states that it is worse when sitting up and relieved when lying down. When EMS arrived on scene, they found the patient to have an oxygen saturation of 81% on room air, and he was subsequently placed on a nonrebreather. However, when he arrived here, he was notably short of breath, but had oxygen saturations in the mid to high 90s on room air. Patient was admitted here from 05/24 through 05/27 for chest pain and subsequently underwent a cardiac catheterization and had a stent placed. He had been doing well and recovering from that without any problems until last night when the chest pain, shortness of breath, and weakness began. Denies any fevers, chills, sore throat, cough, palpitations, nausea, vomiting, diarrhea, back pain, or headaches. MD Complaint: shortness of breath, chest pain Onset/Timin -: days(s) - Related Data Home Medications Medication Instructions Recorded Confirmed Metoprolol Succinate (ER) [Toprol 100 mg PO DAILY 04/23/14 06/04/22 XL] HYDROcodone/APAP 7.5-325MG [[place] 1 tab PO BID PRN 05/26/18 06/04/22 7.5-325] Apixaban [Eliquis] 5 mg PO BID 05/24/22 06/04/22 [place]-3/Dha/Epa/Fish Oil [Fish Oil 1 cap PO DAILY 05/24/22 06/04/22 1,000 mg Softgel] metFORMIN HCL 1,000 mg PO BID 05/24/22 06/04/22 Nitroglycerin Sl Tabs [Nitrostat] 0.4 mg SL Q5M PRN 06/04/22 06/04/22 Previous Rx's Medication Instructions Recorded Aspirin 81 mg PO DAILY #30 chew 01/31/19 Atorvastatin [Lipitor] 80 mg PO HS #90 tab 01/31/19 Losartan [Cozaar] 25 mg PO DAILY #30 tab 01/31/19 Clopidogrel [Plavix] 75 mg PO DAILY #30 tab 05/26/22 Allergies Allergy/AdvReac Type Severity Reaction Status Date / Time No Known Allergies Allergy Verified 06/04/22 11:45 Review of Systems ROS Statement: Those systems with pertinent positive or pertinent negative responses have been documented in the HPI. ROS Other: All systems not noted in ROS Statement are negative. Past Medical History Past Medical History: Coronary Artery Disease (CAD), Diabetes Mellitus, Hypertension Additional Past Medical History / Comment(s): HYPERTENSIVE CARDIOMYOPATHY (HCM), AICD/pacemaker (2014) History of Any Multi-Drug Resistant Organisms: None Reported Past Surgical History: AICD, Heart Catheterization With Stent Additional Past Surgical History / Comment(s): heart cath Apr 2018 with stents. AICD (MEDTRONIC), Cardiac cath with 2 stents placed 05/25/22 Past Anesthesia/Blood Transfusion Reactions: No Reported Reaction Date of Last Stent Placement:: 2018 Type of Cardiac Device: AICD Device Placement Date:: 06/03/2014 Past Psychological History: No Psychological Hx Reported Smoking Status: Current every day smoker Past Alcohol Use History: Occasional Past Drug Use History: None Reported - Past Family History Father Family Medical History: Diabetes Mellitus, Hypertension, Renal Disease Mother Family Medical History: Diabetes Mellitus Additional Family Medical History / Comment(s): Rheumatoid arthritis General Exam Limitations: no limitations General appearance: alert, in no apparent distress Head exam: Present: atraumatic, normocephalic, normal inspection Respiratory exam: Present: decreased breath sounds, prolonged expiratory Cardiovascular Exam: Present: regular rate, normal rhythm, normal heart sounds. Absent: systolic murmur, diastolic murmur, rubs, gallop, clicks Neurological exam: Present: alert, oriented X3, CN II-XII intact Psychiatric exam: Present: normal affect, normal mood Skin exam: Present: warm, dry, intact, normal color. Absent: rash Course Vital Signs 06/04/22 06/04/22 06/04/22 10:25 10:34 11:33 Temperature 97.8 F Pulse Rate 71 102 H Respiratory 20 20 18 Rate Blood Pressure 114/69 121/76 O2 Sat by Pulse 100 98 Oximetry Fraction of Inspired Oxygen (FIO2) 06/04/22 06/04/22 06/04/22 12:08 12:44 13:30 Temperature Pulse Rate 96 112 H Respiratory 18 Rate Blood Pressure 117/74 O2 Sat by Pulse 99 Oximetry Fraction of 100 Inspired Oxygen (FIO2) 06/04/22 15:11 Temperature 98.1 F Pulse Rate 104 H Respiratory 20 Rate Blood Pressure 116/70 O2 Sat by Pulse 95 Oximetry Fraction of Inspired Oxygen (FIO2) Medical Decision Making - Medical Decision Making This is a 56-year-old male who presents to the emergency department for chest pain, shortness of breath, and black tarry stools. Was pt. sent in by a medical professional or institution? @ -No Did you speak to anyone other than the patient for history? @ -No Did you review nursing and triage notes? @ -Yes, and I agree, it is accurate with regards to the patient's symptoms. Were old charts reviewed? @ -Yes, admission records from 05/24/22-05/27/22. Differential Diagnosis? @ -Differential Dyspnea: Coronary syndrome, arrhythmia, tamponade, asthma, COPD, pulmonary embolism, pneumonia, pneumothorax, pulmonary effusion, anaphylaxis, diabetic ketoacidosis, flailed chest, pulmonary contusion, diaphragmatic rupture, anemia, neuromuscular, this is not meant to be an all-inclusive list. -Differential Chest Pain: Stable Angina, Unstable Angina, STEMI, NSTEMI Aortic Dissection, Pneumothorax, Musculoskeletal, Esophageal Spasm GERD, Cholecystitis, Pancreatitis, Zoster, this is not meant to be an all-inclusive list. -Differential GI Bleed: Esophageal varices, aortoenteric fistula, Sandee-Arora, gastritis, peptic ulcer disease, diverticulosis, inflammatory bowel disease, hemorrhoids, fissure, colitis, malignancy, Meckels diverticulum, this is not meant to be an all- inclusive list. X-rays interpreted by me (1pt min.)? @ -Chest x-ray obtained, my interpretation identifies no localized consolidations or infiltrates. CT interpreted by me (1pt min.)? @ -CT angiogram of the chest obtained. My interpretation identifies no evidence of a pulmonary embolus or infiltrate. Computed tomography scan of the abdomen and pelvis obtained as well. My interpretation identifies no evidence of bowel wall thickening, free air, or ureteral calculus. What testing was considered but not performed? (CT, X-rays, U/S, labs)? Why? @ -None What meds were considered but not given? Why? @ -None Did you discuss the management of the patient with other professionals? @ -Yes, GI at [facility], who advised that their emergency department is full and he would end up having to sit in the waiting room. This is concerning to them because they believe that he needs more urgent attention. [facility] was then contacted, who declined the transfer as well due to them being too busy. I then spoke with [facility], who accepted the patient for ED to ED transfer. Dr. Kameron Hernandez is the accepting provider. Did you reconcile home meds? @ -No Was smoking cessation discussed for >3mins.? @ -No Was critical care preformed (if so, how long)? @ -No Were there social determinants of health that impacted care today? How? (Homelessness, low income, unemployed, alcoholism, drug addiction, transportation, low edu. Level, literacy, decrease access to med. care, snf, rehab)? @ -No Was there de-escalation of care discussed even if they declined? (Discuss DNR or withdrawal of care, Hospice)? @ -No What co-morbidities impacted this encounter? (DM, HTN, Smoking, COPD, CAD, Cancer, CVA, Hep., AIDS, mental health diagnosis, sleep apnea, morbid obesity)? @ -CAD, DM, HTN Was patient admitted / discharged? @ -Transferred to [facility]. Hemoglobin is decreased from 16 on 05/26 to 11 today. Leukocytosis and elevated lactic acid noted as well. Troponin is elevated at 0.071, however it is trending downward, as it is lower than it was during his visit on 05/24. Additionally, patient is stool occult positive. COVID, influenza, and RSV testing negative. Given the severe dyspnea with tachycardia as well as positive stool occult test, CT angiogram of the chest and computed tomography scan of the abdomen and pelvis were obtained. CT angiogram of the chest identifies no evidence of a pulmonary embolus. Computed tomography scan of the abdomen and pelvis also identifies no acute intra- abdominal pathology. Patient continues to be tachycardic in the examination room. Duoneb offered no relief to his symptoms. The black tarry stools result ing in decreased hemoglobin are made worse by the patient being on both Eliquis and Plavix. Given that we do not have GI available, patient will be transferred out for GI bleeding and evaluation by gastroenterology. Patient accepted as a transfer to [facility]. Undiagnosed new problem with uncertain prognosis? @ -None Drug Therapy requiring intensive monitoring for toxicity (Heparin, Nitro, Insulin, Cardizem)? @ -None Were any procedures done? @ -None Diagnosis/symptom? @ -GI bleed, dyspnea, chest pain Acute, or Chronic, or Acute on Chronic? @ -Acute Uncomplicated (without systemic symptoms) or Complicated (systemic symptoms)? @ -Complicated Side effects of treatment? @ -None Exacerbation, Progression, or Severe Exacerbation] @ -Not applicable Poses a threat to life or bodily function? @ -Yes This case was discussed in detail with the attending ED physician, Dr. Scott. Presentation, findings, and treatment plan discussed in detail as well. - Lab Data Result diagrams: 06/04/22 10:51 06/04/22 10:51 Lab Results 06/04/22 06/04/22 06/04/22 Range/Units 10:51 10:51 10:51 WBC 13.0 H (3.8-10.6) k/uL RBC 3.64 L (4.30-5.90) m/uL Hgb 11.0 L D (13.0-17.5) gm/dL Hct 31.5 L (39.0-53.0) % MCV 86.6 (80.0-100.0) fL MCH 30.3 (25.0-35.0) pg MCHC 34.9 (31.0-37.0) g/dL RDW 12.7 (11.5-15.5) % Plt Count 343 (150-450) k/uL MPV 7.2 Neutrophils % 76 % Lymphocytes % 17 % Monocytes % 4 % Eosinophils % 1 % Basophils % 1 % Neutrophils # 9.8 H (1.3-7.7) k/uL Lymphocytes # 2.2 (1.0-4.8) k/uL Monocytes # 0.5 (0-1.0) k/uL Eosinophils # 0.1 (0-0.7) k/uL Basophils # 0.1 (0-0.2) k/uL PT 12.1 H (9.0-12.0) sec INR 1.2 H (<1.2) APTT 21.7 L (22.0-30.0) sec VBG pH (7.31-7.41) VBG pCO2 (37-51) mmHg VBG HCO3 (24-28) mmol/L Sodium 137 (137-145) mmol/L Potassium 4.8 (3.5-5.1) mmol/L Chloride 106 (98-107) mmol/L Carbon Dioxide 19 L (22-30) mmol/L Anion Gap 12 mmol/L BUN 56 H (9-20) mg/dL Creatinine 0.89 (0.66-1.25) mg/dL Est GFR (CKD-EPI)AfAm >90 (>60 ml/min/1.73 sqM) Est GFR (CKD-EPI)NonAf >90 (>60 ml/min/1.73 sqM) Glucose 279 H (74-99) mg/dL Lactic Ac Sepsis Rflx Plasma Lactic Acid Rob (0.7-2.0) mmol/L Calcium 9.3 (8.4-10.2) mg/dL Magnesium 1.5 L (1.6-2.3) mg/dL Total Bilirubin 0.5 (0.2-1.3) mg/dL AST 24 (17-59) U/L ALT 44 (4-49) U/L Alkaline Phosphatase 52 (38-126) U/L Troponin I (0.000-0.034) ng/mL Total Protein 6.2 L (6.3-8.2) g/dL Albumin 3.9 (3.5-5.0) g/dL Stool Occult Blood (Negative) Influenza Type A (PCR) (Not Detectd) Influenza Type B (PCR) (Not Detectd) RSV (PCR) (Not Detectd) SARS-CoV-2 (PCR) (Not Detectd) 06/04/22 06/04/22 06/04/22 Range/Units 10:51 10:51 10:55 WBC (3.8-10.6) k/uL RBC (4.30-5.90) m/uL Hgb (13.0-17.5) gm/dL Hct (39.0-53.0) % MCV (80.0-100.0) fL MCH (25.0-35.0) pg MCHC (31.0-37.0) g/dL RDW (11.5-15.5) % Plt Count (150-450) k/uL MPV Neutrophils % % Lymphocytes % % Monocytes % % Eosinophils % % Basophils % % Neutrophils # (1.3-7.7) k/uL Lymphocytes # (1.0-4.8) k/uL Monocytes # (0-1.0) k/uL Eosinophils # (0-0.7) k/uL Basophils # (0-0.2) k/uL PT (9.0-12.0) sec INR (<1.2) APTT (22.0-30.0) sec VBG pH (7.31-7.41) VBG pCO2 (37-51) mmHg VBG HCO3 (24-28) mmol/L Sodium (137-145) mmol/L Potassium (3.5-5.1) mmol/L Chloride (98-107) mmol/L Carbon Dioxide (22-30) mmol/L Anion Gap mmol/L BUN (9-20) mg/dL Creatinine (0.66-1.25) mg/dL Est GFR (CKD-EPI)AfAm (>60 ml/min/1.73 sqM) Est GFR (CKD-EPI)NonAf (>60 ml/min/1.73 sqM) Glucose (74-99) mg/dL Lactic Ac Sepsis Rflx Plasma Lactic Acid Rob 3.0 H* (0.7-2.0) mmol/L Calcium (8.4-10.2) mg/dL Magnesium (1.6-2.3) mg/dL Total Bilirubin (0.2-1.3) mg/dL AST (17-59) U/L ALT (4-49) U/L Alkaline Phosphatase (38-126) U/L Troponin I 0.071 H* (0.000-0.034) ng/mL Total Protein (6.3-8.2) g/dL Albumin (3.5-5.0) g/dL Stool Occult Blood Positive (Negative) Influenza Type A (PCR) (Not Detectd) Influenza Type B (PCR) (Not Detectd) RSV (PCR) (Not Detectd) SARS-CoV-2 (PCR) (Not Detectd) 06/04/22 06/04/22 06/04/22 Range/Units 11:10 11:10 11:27 WBC (3.8-10.6) k/uL RBC (4.30-5.90) m/uL Hgb (13.0-17.5) gm/dL Hct (39.0-53.0) % MCV (80.0-100.0) fL MCH (25.0-35.0) pg MCHC (31.0-37.0) g/dL RDW (11.5-15.5) % Plt Count (150-450) k/uL MPV Neutrophils % % Lymphocytes % % Monocytes % % Eosinophils % % Basophils % % Neutrophils # (1.3-7.7) k/uL Lymphocytes # (1.0-4.8) k/uL Monocytes # (0-1.0) k/uL Eosinophils # (0-0.7) k/uL Basophils # (0-0.2) k/uL PT (9.0-12.0) sec INR (<1.2) APTT (22.0-30.0) sec VBG pH 7.36 (7.31-7.41) VBG pCO2 33 L (37-51) mmHg VBG HCO3 18 L (24-28) mmol/L Sodium (137-145) mmol/L Potassium (3.5-5.1) mmol/L Chloride (98-107) mmol/L Carbon Dioxide (22-30) mmol/L Anion Gap mmol/L BUN (9-20) mg/dL Creatinine (0.66-1.25) mg/dL Est GFR (CKD-EPI)AfAm (>60 ml/min/1.73 sqM) Est GFR (CKD-EPI)NonAf (>60 ml/min/1.73 sqM) Glucose (74-99) mg/dL Lactic Ac Sepsis Rflx Y Plasma Lactic Acid Rob (0.7-2.0) mmol/L Calcium (8.4-10.2) mg/dL Magnesium (1.6-2.3) mg/dL Total Bilirubin (0.2-1.3) mg/dL AST (17-59) U/L ALT (4-49) U/L Alkaline Phosphatase (38-126) U/L Troponin I (0.000-0.034) ng/mL Total Protein (6.3-8.2) g/dL Albumin (3.5-5.0) g/dL Stool Occult Blood (Negative) Influenza Type A (PCR) Not Detected (Not Detectd) Influenza Type B (PCR) Not Detected (Not Detectd) RSV (PCR) Not Detected (Not Detectd) SARS-CoV-2 (PCR) Not Detected (Not Detectd) - Radiology Data Radiology results: report reviewed, image reviewed Disposition Clinical Impression: GI bleed, Dyspnea, CAD (coronary artery disease) Disposition: OTHER INSTITUTION NOT DEFINED Referrals: Gildardo Smith MD [Primary Care Provider] - 1-2 days - Out of Hospital Transfer - Req. Specs Out of Hospital Transfer - Requested Specifics: Other Emergency Center ([facility]
[2022-06-04 11:01] LABS: Basophils # (A) 0.1 k/uL (0-0.2); Basophils % (A) 1 %; Eosinophils # (A) 0.1 k/uL (0-0.7); Eosinophils % (A) 1 %; HCT 31.5 % (39.0-53.0); Lymphocytes # (A) 2.2 k/uL (1.0-4.8); Lymphocytes % (A) 17 %; MCH 30.3 pg (25.0-35.0); MCHC 34.9 g/dL (31.0-37.0); MCV 86.6 fL (80.0-100.0); Mean Platelet Volume 7.2; Monocytes # (A) 0.5 k/uL (0-1.0); Monocytes % (A) 4 %; Neutrophils # (A) 9.8 k/uL (1.3-7.7); Neutrophils % (A) 76 %; Platelet Count 343 k/uL (150-450); RBC 3.64 m/uL (4.30-5.90); RDW 12.7 % (11.5-15.5)
--- NOTE | 2022-06-04 11:14 | XR ---
EXAMINATION TYPE: XR chest 2V DATE OF EXAM: 06/04/2022 COMPARISON: Chest x-ray 11 days ago HISTORY: Difficulty in breathing. TECHNIQUE: Frontal and lateral views of the chest are obtained. FINDINGS: There is no suspicious new focal air space opacity, pleural effusion, or pneumothorax see n. The cardiac silhouette size remains stable and within normal limits with single lead pacemaker/AI CD redemonstrated. The osseous structures are intact. IMPRESSION: No acute cardiopulmonary process. No significant change from most recent x-ray.
[2022-06-04 11:16] LABS: ALT 44 U/L (4-49); AST 24 U/L (17-59); African American GFR (CKD) >90 (>60 ml/min/1.73 sqM); Albumin 3.9 g/dL (3.5-5.0); Alkaline Phosphatase 52 U/L (38-126); Anion Gap 12 mmol/L; Blood Urea Nitrogen 56 mg/dL (9-20); Calcium 9.3 mg/dL (8.4-10.2); Carbon Dioxide 19 mmol/L (22-30); Chloride 106 mmol/L (98-107); Glucose 279 mg/dL (74-99); Magnesium 1.5 mg/dL (1.6-2.3); Non-African American GFR(CKD) >90 (>60 ml/min/1.73 sqM); Potassium 4.8 mmol/L (3.5-5.1); Sodium 137 mmol/L (137-145); Total Bilirubin 0.5 mg/dL (0.2-1.3); Total Protein 6.2 g/dL (6.3-8.2)
[2022-06-04 11:24] LABS: VBG PH 7.36 (7.31-7.41)
[2022-06-04 11:25] LABS: INR 1.2 (<1.2); Prothrombin Time 12.1 sec (9.0-12.0)
[2022-06-04] MEDS ORDERED: IPRATROPIUM-ALBUTEROL 3 ML NEB INHALATION STA (11:26)
[2022-06-04 11:47] LABS: Partial Thromboplastin Time 21.7 sec (22.0-30.0)
--- NOTE | 2022-06-04 12:36 | CT ---
EXAMINATION TYPE: CT chest angio for PE DATE OF EXAM: 06/04/2022 COMPARISON: None HISTORY: Dyspnea, tachycardia, chest pain CONTRAST: CT chest with contrast and 3D reconstruction with MIP imaging is performed with IV Contrast, patient injected with 100 mL of Isovue 300. Contrast-enhanced CT of the chest was performed through the course of the pulmonary arteries with ruth g and mediastinal window settings submitted. 3D reconstruction with MIP imaging was also performed. PULMONARY ARTERIES: The pulmonary arteries and their major tributaries are patent. I do not see cb dence for sizable filling defect to suggest pulmonary embolic process. LUNGS: The lungs are clear and free of infiltrate. No evidence for atelectasis. No pulmonary nodule or mass is detected. No pleural effusion. MEDIASTINUM: Thoracic aorta is of normal caliber,however.. The heart is not enlarged. No evidence f or mediastinal mass. No mediastinal lymph nodes greater than 1cm. HILAR STRUCTURES: No evidence for mass. No hilar lymph nodes greater than 1 cm. UPPER ABDOMEN: No significant abnormality is seen. IMPRESSION: 1. No evidence for Pulmonary embolism at this time.
--- NOTE | 2022-06-04 12:36 | CT ---
EXAMINATION TYPE: CT abdomen pelvis w con DATE OF EXAM: 06/04/2022 COMPARISON: None. HISTORY: Shortness of breath with abdominal pain. GI bleed. CT DLP: 1583.3 mGycm, Automated Exposure Control for Dose Reduction was Utilized. CONTRAST: CT scan of the abdomen and pelvis is performed without oral and with IV Contrast, patient injected wi th 100 cc mL of Isovue 370. FINDINGS: LUNG BASES: Please refer to same day CTA chest report for complete details on the lung bases. LIVER/GB: Liver is diffusely low dense suggesting diffuse fatty infiltration. PANCREAS: No significant abnormality is seen. SPLEEN: No significant abnormality is seen. ADRENALS: No significant abnormality is seen. KIDNEYS: No significant abnormality is seen. BOWEL: No suspicious small or large bowel dilatation. Normal-appearing appendix from the cecum. PROSTATE/SEMINAL VESICLES: No gross abnormality seen. LYMPH NODES: No greater than 1cm abdominal or pelvic lymph nodes are appreciated. OSSEOUS STRUCTURES: No significant abnormality is seen. OTHER: Mild peripheral mixed plaque of the aorta extends into branch vessels. IMPRESSION: No bowel obstruction. No suspicious acute findings seen on this study.
[2022-06-04] MEDS ORDERED: NITROGLYCERIN SL TABS 0.4 MG TAB SUBLINGUAL STA (14:45)
[2022-06-04 15:12] VITALS: BP 116/70; PULSE 104; RESP 20; TEMP 98.1
== END 2022-06-04 15:36 | disposition other institution (70) ==
LOC: EC 10:16
DX: K92.2 Gastrointestinal hemorrhage, unspecified (principal); I25.10 Atherosclerotic heart disease of native coronary artery without angina pectoris; I10 Essential (primary) hypertension; F17.290 Nicotine dependence, other tobacco product, uncomplicated; E11.9 Type 2 diabetes mellitus without complications; Z95.5 Presence of coronary angioplasty implant and graft; Z95.810 Presence of automatic (implantable) cardiac defibrillator; Z20.822 Contact with and (suspected) exposure to COVID-19; Z79.899 Other long term (current) drug therapy; Z79.01 Long term (current) use of anticoagulants; Z79.84 Long term (current) use of oral hypoglycemic drugs
CPT/HCPCS: 36415; 94640; 93005; 80053; 82803; 83605; 83735; 84484; 85025; 85610; 85730; 82272; 87636; 71046; 71275; 74177; 99285; Q9967

== ENCOUNTER 2023-12-21 08:42 | Day surgery (SDC) | payer BC ==
[~2023-12-21 08:42] MED LIST changes: -LACTATED RINGERS 1,000 ML IV SCH; +LIDOCAINE 1% (10MG/ML) FOR IV START INTRADERMA PRN; -LIDOCAINE 1% 20 ML VIAL (10MG/ML) FOR IV START INTRADERMA PRN
--- NOTE | 2023-12-21 08:54 | P.GSHP ---
History of Present Illness H&P Date: 12/21/23 CHIEF COMPLAINT: Colon screen HISTORY OF PRESENT ILLNESS: The patient is a 58-year-old male who presents for colon screen. Lower endoscopy was offered for further evaluation and management. PAST MEDICAL HISTORY: Please see list. PAST SURGICAL HISTORY: Please see list. MEDICATIONS: Please see list. ALLERGIES: Please see list. SOCIAL HISTORY: No illicit drug use FAMILY HISTORY: No reports of Crohn disease or ulcerative colitis. REVIEW OF ORGAN SYSTEMS: CONSTITUTIONAL: No reports of fevers or chills. PHYSICAL EXAM: VITAL SIGNS: Stable GENERAL: Well-developed pleasant in no acute distress. HEENT: No scleral icterus. Extraocular movements grossly intact. Moist buccal mucosa. NECK: Supple without lymphadenopathy. CHEST: Unlabored respirations. Equal bilateral excursions. CARDIOVASCULAR: Regular rate and rhythm. Distal 2+ pulses. ABDOMEN: Soft, nontender, nondistended. MUSCULOSKELETAL: No clubbing, cyanosis, or edema. ASSESSMENT: 1. Colon screen. PLAN: 1. Recommend proceeding with a lower endoscopy Past Medical History Past Medical History: Coronary Artery Disease (CAD), CVA/TIA, Diabetes Mellitus, Hyperlipidemia, Hypertension, Myocardial Infarction (ND) Additional Past Medical History / Comment(s): HYPERTENSIVE CARDIOMYOPATHY (HCM), AICD/pacemaker (2014) possible tia Last Myocardial Infarction Date:: 2012? History of Any Multi-Drug Resistant Organisms: None Reported Past Surgical History: AICD, Heart Catheterization With Stent Additional Past Surgical History / Comment(s): heart cath Apr 2018 with stents. AICD (MEDTRONIC), Cardiac cath with 2 stents placed 05/25/22 Past Anesthesia/Blood Transfusion Reactions: No Reported Reaction Date of Last Stent Placement:: 2018 Type of Cardiac Device: Permanent Pacemaker, AICD Device Placement Date:: 06/03/2014 Smoking Status: Former smoker - Past Family History Father Family Medical History: Diabetes Mellitus, Hypertension, Renal Disease Mother Family Medical History: Diabetes Mellitus Additional Family Medical History / Comment(s): Rheumatoid arthritis Medications and Allergies Home Medications Medication Instructions Recorded Confirmed Type Metoprolol Succinate (ER) [Toprol 100 mg PO BID 04/23/14 12/16/23 History XL] HYDROcodone/APAP 7.5-325MG [[place] 1 tab PO BID PRN 05/26/18 12/16/23 History 7.5-325] Aspirin 81 mg PO DAILY #30 chew 01/31/19 12/16/23 Rx Atorvastatin [Lipitor] 80 mg PO HS #90 tab 01/31/19 12/16/23 Rx Losartan [Cozaar] 25 mg PO DAILY #30 tab 01/31/19 12/16/23 Rx metFORMIN HCL 1,000 mg PO BID 05/24/22 12/16/23 History Clopidogrel [Plavix] 75 mg PO DAILY #30 tab 05/26/22 12/16/23 Rx Nitroglycerin Sl Tabs [Nitrostat] 0.4 mg SL Q5M PRN 06/04/22 12/16/23 History Allergies Allergy/AdvReac Type Severity Reaction Status Date / Time No Known Allergies Allergy Verified 12/16/23 10:36
[2023-12-21] MEDS: IV FLUID CONTINUATION 1,000 ML IV ONE (08:59)
[2023-12-21 09:10] VITALS: TEMP 97.5
[2023-12-21 09:15] LABS: Glucose,Whole Blood 188 mg/dL (70-110)
[2023-12-21] MEDS: LACTATED RINGERS 1,000 ML IV SCH (09:18)
[2023-12-21] MEDS ORDERED: PROPOFOL 10 MG/ML 20 ML VIAL IV ONE (09:31)
--- NOTE | 2023-12-21 10:02 | P.PCN ---
Date of Procedure: 12/21/23 Description of Procedure: PREOPERATIVE DIAGNOSIS: Personal history of colon polyps Colonoscopy screening. Anal fissure POSTOPERATIVE DIAGNOSIS: Colonoscopy screening. OPERATION: Colonoscopy to the cecum, ileocecal valve and appendiceal orifice. SURGEON: Katty Redd MD. ANESTHESIA: MAC. INDICATIONS: The patient is a 58-year-old male who presents for history of colon polyps including anal fissures. Benefits and risks were described and informed consent was obtained. DESCRIPTION OF PROCEDURE: The patient had undergone GoLytely prep. The patient had been brought into the operating room and laid in the left lateral decubitus position. After adequate intravenous sedation, the rectum was examined with 2% lidocaine jelly. External hemorrhoids were encountered. The rectal tone was within normal limits. No lesions were palpated in the rectal vault. An Olympus colonoscope was advanced until the cecum, ileocecal valve and appendiceal orifice were clearly viewed. The prep was fair. No large scattered diverticulosis was encountered. No colonic polyps were found. No evidence of focal colitis was found. Retroflexion of the scope demonstrated grade 2 internal hemorrhoids without active bleeding or inflammation. The colon was desufflated. The patient had tolerated the procedure well. Withdrawal time was over 6 minutes. FINDINGS: Aronchick preparation quality scale 2+ (1-5) Internal hemorrhoids, grade 2 External prolapsed hemorrhoids, grade 2 Resolved anal fissure No arteriovenous malformations. Abdominal wall pressure was used to advance the scope. No adenomatous polyps. No focal colitis. RECOMMENDATIONS: Lower endoscopy 5 years, 2028 Plan - Discharge Summary Discharge Rx Participant: No New Discharge Prescriptions: Continue Metoprolol Succinate (ER) [Toprol XL] 100 mg PO BID HYDROcodone/APAP 7.5-325MG [[place] 7.5-325] 1 tab PO BID PRN PRN Reason: Pain Atorvastatin [Lipitor] 80 mg PO HS #90 tab Aspirin 81 mg PO DAILY #30 chew Losartan [Cozaar] 25 mg PO DAILY #30 tab metFORMIN HCL 1,000 mg PO BID Clopidogrel [Plavix] 75 mg PO DAILY #30 tab Nitroglycerin Sl Tabs [Nitrostat] 0.4 mg SL Q5M PRN PRN Reason: Chest Pain Discharge Medication List Metoprolol Succinate (ER) [Toprol XL] 100 mg PO BID 04/23/14 [History] HYDROcodone/APAP 7.5-325MG [[place] 7.5-325] 1 tab PO BID PRN 05/26/18 [History] Aspirin 81 mg PO DAILY #30 chew 01/31/19 [Rx] Atorvastatin [Lipitor] 80 mg PO HS #90 tab 01/31/19 [Rx] Losartan [Cozaar] 25 mg PO DAILY #30 tab 01/31/19 [Rx] metFORMIN HCL 1,000 mg PO BID 05/24/22 [History] Clopidogrel [Plavix] 75 mg PO DAILY #30 tab 05/26/22 [Rx] Nitroglycerin Sl Tabs [Nitrostat] 0.4 mg SL Q5M PRN 06/04/22 [History] Follow up Appointment(s)/Referral(s): Katty Redd MD [STAFF PHYSICIAN] - As Needed Patient Instructions/Handouts: *Surgery [facility] - (Anesthesia) Discharge Instructions Outpatient Surgery, Anal Fissure (ED) Activity/Diet/Wound Care/Special Instructions: RESUME BLOOD THINNER TODAY. Repeat colonoscopy 5 years, 2028 Discharge Disposition: HOME SELF-CARE
[2023-12-21 10:20] VITALS: BP 142/96; PULSE 66; RESP 20
== END 2023-12-21 10:27 | disposition home or self-care (01) ==
LOC: ORWHC2ENDO 08:42
PROVIDERS: ATTEND Surgery Plastic and Reconstructive Surgery
CPT/HCPCS: 45378

== ENCOUNTER → 2024-05-03 | Outpatient (CLI) | payer BC ==
--- NOTE | 2024-05-03 08:18 | US ---
EXAMINATION TYPE: US carotid duplex BILAT DATE OF EXAM: 05/03/2024 COMPARISON: NONE CLINICAL INDICATION: Male, 58 years old with history of R94.31 ABNORMAL ELECTROCARDIOGRAM; Afib, ACM, HTN, DM, OLEG, and Former smoker Additional History: .... TECHNIQUE: Grayscale, color Doppler and spectral Doppler evaluation of the bilateral carotid systems and vertebral arteries. Indirect Doppler criteria was utilized. 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 Color Doppler imaging shows patency with blood flow throughout the carotid artery. Spectral waveforms are within normal limits. IMPRESSION: 1. No significant plaquing or elevated velocities to suggest stenosis. Criteria for Assigning % of Stenosis / Diameter reduction (Estimation based on the indirect measurements of the internal carotid artery velocities (ICA PSV). 1. Normal (no stenosis)=ICA PSV < 125 cm/s: ratio < 2.0: ICA EDV<40 cm/s. 2. Less than 50% stenosis=ICA PSV < 125 cm/s: ratio < 2.0: ICA EDV<40 cm/s. 3. 50 to 69% stenosis=ICA PSV of 125 to 230 cm/s: ration 2.0 ? 4.0: ICA EDV 40-100 cm/s. 4. Greater than 70% stenosis to near occlusion= ICA PSV > 230 cm/s: ratio > 4.0: ICA EDV > 100 cm/s. 5. Near occlusion= ICA PSV velocities may be low or undetectable: variable ratio and ICA EDV. 6. Total occlusion=unable to detect flow. [facility], , 05/03/2024 8:15 AM
== END | disposition home or self-care (01) ==
LOC: RADUSWWP 07:26
PROVIDERS: ATTEND Pediatrics
DX: R00.0 Tachycardia, unspecified (principal); I42.2 Other hypertrophic cardiomyopathy; R94.31 Abnormal electrocardiogram [ECG] [EKG]
CPT/HCPCS: 93225; 93880

== ENCOUNTER → 2024-06-21 | Outpatient (CLI) | payer BC ==
[2024-06-21 18:46] LABS: HCT 45.5 % (39.6-50.0); MCH 29.2 pg (27.0-32.0); MCV 88.7 FL (80.0-97.0); Mean Platelet Volume 9.8 FL (9.5-12.2); NRBC Per 100 WBC 0 X 10*3/uL (0.00-0.01); Platelet Count 224 X 10*3/uL (140-440); RBC 5.13 X 10*6/uL (4.40-5.60); WBC 6.44 X 10*3/uL (4.50-10.00)
[2024-06-21 19:54] LABS: Blood Urea Nitrogen 16.2 mg/dL (9.0-27.0)
[2024-06-21 19:55] LABS: Chloride 100 mmol/L (96-109); Potassium 4.3 mmol/L (3.5-5.5); Sodium 140 mmol/L (135-145)
== END | disposition home or self-care (01) ==
LOC: LABPAT 14:28
PROVIDERS: ATTEND Internal Medicine Clinical Cardiac Electrophysiology
DX: Z01.812 Encounter for preprocedural laboratory examination (principal); I48.19 Other persistent atrial fibrillation
CPT/HCPCS: 36415; 80051; 82565; 84520; 85027

== ENCOUNTER 2024-06-28 07:46 | Day surgery (SDC) | payer BC ==
[2024-06-28] MEDS: SODIUM CHLORIDE 0.9% 1,000 ML IV SCH (07:34)
[2024-06-28] MEDS: IV FLUID CONTINUATION 1,000 ML IV ONE ×3 (07:35→14:50)
[2024-06-28 08:12] LABS: Glucose,Whole Blood 182 mg/dL (70-110)
[2024-06-28 08:34] LABS: ALT 32 U/L (4-49); AST 32 U/L (17-59); African American GFR (CKD) >90 (>60 ml/min/1.73 sqM); Albumin 4.9 g/dL (3.5-5.0); Alkaline Phosphatase 58 U/L (38-126); Anion Gap 11 mmol/L; Blood Urea Nitrogen 13 mg/dL (9-20); Carbon Dioxide 29 mmol/L (22-30); Chloride 100 mmol/L (98-107); Glucose 195 mg/dL (74-99); Non-African American GFR(CKD) >90 (>60 ml/min/1.73 sqM); Sodium 140 mmol/L (137-145); Total Bilirubin 0.9 mg/dL (0.2-1.3); Total Protein 7.5 g/dL (6.3-8.2)
[2024-06-28] MEDS ORDERED: FUROSEMIDE 10 MG/ML 2 ML VIAL ONE (08:41)
[2024-06-28] MEDS ORDERED: PHENYLEPHRINE 10 MG/ML VIAL ONE (08:41)
[2024-06-28] MEDS ORDERED: ATROPINE SULFATE 0.1 MG/ML 10ML SYRINGE ONE (08:41)
[2024-06-28] MEDS ORDERED: LIDOCAINE 1% INJ 10MG/ML (20 ML MDV) ONE (08:41)
[2024-06-28] MEDS ORDERED: fentaNYL (PF) 50 MCG/ML 2 ML AMP ONE (08:41)
[2024-06-28] MEDS ORDERED: SUCCINYLCHOLINE CHLORIDE 200 MG/10 ML VIAL IV ONE (08:41)
[2024-06-28] MEDS ORDERED: HEPARIN SODIUM,PORCINE 10,000 UNIT/ML 1 ML VIAL ONE (08:41)
[2024-06-28] MEDS ORDERED: MIDAZOLAM 2 MG/2 ML VIAL ONE (08:41)
[2024-06-28] MEDS ORDERED: PROPOFOL 10 MG/ML 20 ML VIAL IV ONE (08:41)
[2024-06-28] MEDS ORDERED: HEPARIN SODIUM,PORCINE 5,000 UNIT/ML 1 ML VIAL ONE (08:41)
[2024-06-28] MEDS: HEPARIN SODIUM,PORCINE 10,000 UNIT in SODIUM CHLORIDE 0.9% 1,000 ML IRRIGATION ONE (09:14)
[2024-06-28] MEDS: HEPARIN SODIUM,PORCINE (1 ML) 2,500 UNIT in SODIUM CHLORIDE 0.9% 250 ML IRRIGATION ONE (09:15)
[2024-06-28] MEDS: HEPARIN SOD,PORK IN 0.45% NACL 25,000 UNIT in 0.45% NACL 1 250ML.BAG IV ONE (09:15)
[2024-06-28 09:48] LABS: T4, Free (Free Thyroxine) 0.79 ng/dL (0.78-2.19)
[2024-06-28] MEDS: LIDOCAINE 1% INJ 10MG/ML (20 ML MDV) SQ ONE (09:48)
[2024-06-28] MEDS: IOPAMIDOL-370 100ML BTL INJ ONE (10:19)
[2024-06-28] MEDS: HEPARIN SODIUM (1,000 UNIT/ML) 1,000 UNIT in SODIUM CHLORIDE 0.9% 1,000 ML IRRIGATION ONE (11:30)
[2024-06-28] MEDS ORDERED: carisoprodoL 350 MG TAB PO PRN (13:24)
[2024-06-28] MEDS ORDERED: ACETAMINOPHEN TAB 325 MG TAB PO PRN (13:37)
--- NOTE | 2024-06-28 13:43 | P.PRLE ---
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 He underwent an EP study and ablation for atrial fibrillation as well as typical atrial flutter. Hopefully this results in a significant reduction in his atrial fibrillation. He will continue all his cardiac medications as before and will continue Eliquis uninterrupted for the first 2 months without any temporary cessation. However he will require Eliquis for lifelong since he has hypertrophic cardiomyopathy Thank you for entrusting me with the care of the patient Warm regards Sincerely Juma Brewer
--- NOTE | 2024-06-28 13:48 | P.HPCAR ---
History of Present Illness This is Dr. Brewer dictating an H/P on this patient The patient was interviewed and examined IMPRESSION / ASSESSMENT: Persistent atrial fibrillation, very symptomatic Atrial flutter, likely typical, very symptomatic Hypertrophic cardiomyopathy Coronary artery status post stenting to the RCA in 2022 PLAN: Calculate heparin dose, anticoagulation to continue and proceed with A-fib ablation ICD interrogation with reprogramming before and after the procedure IV antibiotics HPI Patient has had recent onset of shortness of breath for a few months. He was very short of breath even lying down for his EKG and with minimal exercise. His EKG showed atrial fibrillation. One of his EKGs showed rhythm consistent with a trial flutter. He was anticoagulated with Eliquis and scheduled for an A-fib ablation He has known underlying hypertrophic cardiomyopathy and a single-chamber ICD He has known coronary artery disease status post stenting to the proximal RCA in 2022 He is on guideline directed medical treatment for CAD and HCM Recent stress test did not show any evidence for ischemia Denies any chest discomfort dizziness lightheadedness or palpitations but continues to experience shortness of breath with minimal exertion ROS: No fever chills or rigors, no cough, phlegm or expectoration, no nausea, vomiting or diarrhea, no hematuria, dysuria, no musculoskeletal complaints, no strokes or seizures, no skin lesions. EXAMINATION: Afebrile, pulse rate in the 80s, blood pressure 158/104 mmHg Heart sounds irregular Breath sounds clear no rhonchi no crackles Abdomen soft No lower extremity edema No JVD REVIEW OF LABS, ECG & MEDICAL DATA Sodium 140, potassium 4.0, BUN 13 and creatinine 0.8 TSH 4.8 Physical Exam Vitals: Vital Signs Temp Pulse Resp BP BP Pulse Ox 06/28/24 08:03 96.7 F L 88 16 158/107 178/104 100 Intake and Output 06/27/24 06/28/24 06/28/24 22:59 06:59 14:59 Intake Total 1391 Balance 1391 Intake: IV 1391 Other: Weight 85 kg Past Medical History Past Medical History: Atrial Fibrillation, Coronary Artery Disease (CAD), Chest Pain / Angina, CVA/TIA, Diabetes Mellitus, Hyperlipidemia, Hypertension, Myocardial Infarction (ND), Osteoarthritis (OA) Additional Past Medical History / Comment(s): SEE DR. Brewer's H&P; HYPERTENSIVE CARDIOMYOPATHY(HCM), AICD/pacemaker (2014), possible tia, chronic back pain Last Myocardial Infarction Date:: 2012? History of Any Multi-Drug Resistant Organisms: None Reported Past Surgical History: AICD, Heart Catheterization With Stent Additional Past Surgical History / Comment(s): heart cath Apr 2018 with stents. AICD(MEDTRONIC), heart cath with 2 stents May 2022 Past Anesthesia/Blood Transfusion Reactions: No Reported Reaction Date of Last Stent Placement:: 2018 Type of Cardiac Device: Permanent Pacemaker, AICD Device Placement Date:: 06/03/2014 Smoking Status: Former smoker - Past Family History Father Family Medical History: Diabetes Mellitus, Hypertension, Renal Disease Mother Family Medical History: Diabetes Mellitus Additional Family Medical History / Comment(s): Rheumatoid arthritis Physical Examination Vital Signs Temp Pulse Resp BP BP Pulse Ox 06/28/24 08:03 96.7 F L 88 16 158/107 178/104 100 Intake and Output 06/27/24 06/28/24 06/28/24 22:59 06:59 14:59 Intake Total 1391 Balance 1391 Intake: IV 1391 Other: Weight 85 kg Results 06/28/24 08:00 Cardiac Enzymes 06/28/24 Range/Units 08:00 AST 32 (17-59) U/L Comprehensive Metabolic Panel 06/28/24 Range/Units 08:00 Sodium 140 (137-145) mmol/L Potassium 4.0 (3.5-5.1) mmol/L Chloride 100 (98-107) mmol/L Carbon Dioxide 29 (22-30) mmol/L BUN 13 (9-20) mg/dL Creatinine 0.81 (0.66-1.25) mg/dL Glucose 195 H (74-99) mg/dL Calcium 10.0 (8.4-10.2) mg/dL AST 32 (17-59) U/L ALT 32 (4-49) U/L Alkaline Phosphatase 58 (38-126) U/L Total Protein 7.5 (6.3-8.2) g/dL Albumin 4.9 (3.5-5.0) g/dL Current Medications Generic Name Dose Route Start Last Admin Trade Name Freq PRN Reason Stop Dose Admin Acetaminophen 650 mg 06/28/24 13:37 Acetaminophen Tab 325 Mg Tab PO 07/28/24 13:36 Q6HR PRN Mild Pain (Scale 1 to 3) Apixaban 5 mg 04/24/25 21:00 Apixaban 5 Mg Tab PO 07/28/24 20:59 BID [facility] Protocol Atorvastatin Calcium 80 mg 06/28/24 21:00 Atorvastatin 80 Mg Tab PO 07/28/24 20:59 HS MARIBEL Carisoprodol 350 mg 06/28/24 13:24 Carisoprodol 350 Mg Tab PO 07/28/24 13:23 DAILY PRN Pain Clopidogrel Bisulfate 75 mg 06/29/24 09:00 Clopidogrel 75 Mg Tab PO 07/29/24 08:59 DAILY MARIBEL Furosemide 20 mg 06/29/24 09:00 Furosemide 20 Mg Tab PO 07/29/24 08:59 DAILY MARIBEL Sodium Chloride 1,000 mls @ 20 mls/hr 06/28/24 05:53 06/28/24 07:34 Saline 0.9% IV 07/28/24 05:52 20 mls/hr .Q24H MARIBEL Administration Acetaminophen 1,000 mg/ IV 100 mls @ 400 mls/hr 06/28/24 13:37 Solution IVPB 06/28/24 13:51 ONCE ONE Losartan Potassium 100 mg 06/29/24 09:00 Losartan 25 Mg Tab PO 07/29/24 08:59 DAILY [facility] Metoprolol Succinate 150 mg 06/28/24 21:00 Metoprolol Succinate (Er) 100 Mg Tab.Er.24h PO 07/28/24 20:59 BID [facility] Non-Formulary Medication 1,000 mg 06/28/24 21:00 Metformin Hcl [Metformin Hcl] PO 07/28/24 20:59 BID [facility] Pantoprazole Sodium 40 mg 06/28/24 21:00 Pantoprazole 40 Mg Tablet PO 07/28/24 20:59 BID [facility] Sodium Chloride 12 ml 06/28/24 13:37 Sodium Chloride 0.9% Flush 10 Ml Syringe IV 07/28/24 13:36 Q12HR PRN Line Flush Intake and Output 06/27/24 06/28/24 06/28/24 22:59 06:59 14:59 Intake Total 1391 Balance 1391 Intake: IV 1391 Other: Weight 85 kg Patient Weight 06/29/24 06:59 Weight 85 kg 06/28/24 08:00
--- NOTE | 2024-06-28 13:56 | P.EPPROC ---
- EP Procedure Note Electrophysiology Procedure Note: PROCEDURE A. fib ablation with antral level PVI, left atrial septal ablation, left atrial roof ablation Ablation for typical atrial flutter DIAGNOSIS Persistent atrial fibrillation, symptomatic, refractory to therapy Typical atrial flutter, symptomatic Hypertrophic cardiomyopathy RESULT No left atrial appendage mass seen on intracardiac echo Successful A. fib ablation/pulmonary vein isolation of all veins using cryo- ablation Complete entrance block in all 4 veins confirmed No evidence for phrenic nerve injury Left atrial roof ablation Left atrial septal ablation Ablation for typical atrial flutter, cavotricuspid isthmus ablation Esophageal deflection YES Electrical cardioversion with a synchronized shock across the chest YES PROCEDURE DETAILS Written informed consent prior to procedure. Patient brought to the EP lab. General anesthesia given. Heparin administered. A city maintained above 300 seconds Both groins prepped and draped per protocol and venous sheaths placed. Esophagus intubated, circa catheter for temperature monitoring an endoscope for possible esophageal deflection. Phrenic nerve monitoring performed. Esophageal temperature monitoring performed. Esophageal deflection performed if circa catheter overlapping with the balloon or circa temperature less than 27.5°C Intracardiac echocardiography performed. Pericardium evaluated. Left atrial appendage evaluated. Left atrium evaluated along with pulmonary veins Transseptal catheterization performed under fluoroscopic guidance and intracardiac echo guidance Cryoablation sheath exchanged, balloon catheter along with achieve catheter placed in the left atrium. Pulmonary veins isolated in the following sequence: Left superior pulmonary vein followed by left inferior pulmonary vein, followed by right inferior pulmonary vein and lastly right superior pulmonary vein. Phrenic nerve stimulation along with capture thresholds within the SVC and right superior pulmonary vein to identify the phrenic nerve proximity to the cryo- balloon. Pulmonary veins isolated and confirmed with entrance and exit block. Phrenic nerve integrity confirmed at the end of the procedure Ablation of the left atrial roof performed with sequential lesions from the left superior to the right superior pulmonary veins. Ablation of the electrograms confirmed with voltage mapping Ablation of the left atrial septum performed with cannulation of the superior branch of the right inferior and the inferior branch of the right superior vein to achieve ablation of the posterior septum of the left atrium. Ablation of electrograms confirmed with voltage mapping Electrical cardioversion performed for persistence of atrial fibrillation despite successful isolation of pulmonary veins. Patient's blood pressure was low and therefore he underwent electrical cardioversion. The rest of the procedure was performed in sinus rhythm. Blood pressure improved in sinus rhythm 3D electroanatomic mapping was performed. Entry-level isolation of the pulmonary veins was confirmed. Left atrial roof ablation was confirmed Additional RF lesions were applied anterior to the left atrial roof since the left superior pulmonary vein occlusion with the cryoballoon was somewhat difficult. Even though the left superior pulmonary vein was isolated, additional RF ablations were performed anterior to the roofline joining the left superior pulmonary vein to the middle of the left atrial roofline Left atrial septal ablation lesions were performed additionally Thereafter the cavotricuspid isthmus was mapped with intracardiac echo and 3D mapping. Successful RF line was made, contiguous, and the cavotricuspid isthmus. This line was interrogated with differential pacing and bidirectional block was proven Isthmus conduction time was greater than 175 ms Diagnostic catheters for the high right atrium, His bundle, coronary sinus placed. LA and RA pressures recorded LA pressure: 22/05/10 Diagnostic EP study with coronary sinus pacing and recording during sinus rhythm Baseline measurements: MN interval 204 ms, QRS 118, QT 464 and sinus cycle length 926 Sinus node recovery times were 1087, 993 and 960 1 ms. Per stimulation was performed from the high right atrium and from the coronary sinus. No further atrial fibrillation induced after electrical cardioversion and completion of left atrial ablation lines Venous sheaths were removed and hemostasis assured with a closure device. Patient extubated and transferred to recovery Increase procedural time During ablation multiple attempts had to be made to move the esophagus a safe distance of the from the right inferior pulmonary vein draining cryoablation, to avoid excessive thermal cooling of the esophagus This took extra time and effort to keep the esophagus a safe distance away from the cryoablation balloon. The left superior pulmonary vein was difficult to occlude and multiple attempts had to be made to achieve this. Antral level isolation was successfully performed Additional lesions were applied in the left atrial roof towards the left side, anterior to the line and connected to the left superior pulmonary vein Additional RF ablation was performed on the septum of the left atrium, posterior to the transseptal puncture Multiple attempts needed for successful cryoablation isolation of the right superior pulmonary vein Multiple attempts needed for success of ablation of the right inferior pulmonary vein on account of the proximity of the esophagus and esophageal cooling PROCEDURES PERFORMED Diagnostic EP study CS pacing and recording Left and right transseptal catheterization Catheter the mapping of the tachycardia Intracardiac echocardiography Pulmonary vein isolation with transseptal and comprehensive EPS, [id number] Extended procedure duration Left atrial roof line, +[id number] Linear ablation, left atrium septum, +[id number] Ablation for typical atrial flutter, +[id number] Electrical cardioversion with a synchronized shock across the chest [id number]
[2024-06-28] MEDS: ONDANSETRON 4 MG/2 ML VIAL IVP STA (14:26)
[2024-06-28 14:32] LABS: Glucose,Whole Blood 215 mg/dL (70-110)
[2024-06-28] MEDS: INSULIN LISPRO (HumaLOG) 100 UNIT/ML 10 mL VL SQ ONE (14:46)
[2024-06-28] MEDS: ceFAZolin 2 GM in DEXTROSE 5% IN WATER 50 ML IVPB ONE (15:51)
[2024-06-28] MEDS: ACETAMINOPHEN IV (For NPO) 1,000 MG in EMPTY BAG 1 BAG IVPB ONE (15:52)
--- NOTE | 2024-06-28 18:52 | P.EPPROC ---
- EP Procedure Note Electrophysiology Procedure Note: Medtronic ICD was interrogated before the A-fib ablation. Baseline measurements procured and was stable from before Therapies turned off Following EP study and A-fib ablation and atrial flutter ablation, device was reinterrogated Stable impedances and normal function Device reprogrammed and therapies turned on
[2024-06-28] MEDS: metFORMIN 500 MG TAB PO SCH (21:13)
[2024-06-28] MEDS: PANTOPRAZOLE 40 MG TABLET PO SCH (21:13)
[2024-06-28] MEDS: APIXABAN 5 MG TAB PO SCH (21:14)
[2024-06-28] MEDS: METOPROLOL SUCCINATE (ER) 100 MG TAB.ER.24H PO SCH (21:14)
[2024-06-28] MEDS: ATORVASTATIN 80 MG TAB PO SCH (21:15)
[2024-06-29 07:37] VITALS: BP 118/76; PULSE 72; RESP 18; TEMP 97.4
[2024-06-29] MEDS ORDERED: LOSARTAN 50 MG TAB PO SCH (09:00)
[2024-06-29] MEDS ORDERED: CLOPIDOGREL 75 MG TAB PO SCH (09:00)
[2024-06-29] MEDS ORDERED: FUROSEMIDE 20 MG TAB PO SCH (09:00)
--- NOTE | 2024-06-29 12:03 | DS ---
DISCHARGE SUMMARY Bob Jay is a 58-year-old male patient with hypertrophic cardiomyopathy, who had recent onset of both atrial flutter as well as documented atrial fibrillation, persistent in nature. He has been very tired and fatigued and short of breath with this. He was anticoagulated since this was a new diagnosis and brought in yesterday for an ablation for atrial fibrillation and atrial flutter. This was performed successfully with ablation of the pulmonary veins at an antral level, left atrial roof, left atrial septum, and cava tricuspid isthmus. Voltage mapping was performed thereafter and appropriate pacing techniques were used to ensure adequacy and completion of successful ablation. He is doing well. He has no chest pain. No dizziness, lightheadedness. Lungs are clear. Heart sounds normal. Groins have healed well. There is no hematoma noted. IMPRESSION: 1. Hypertrophic cardiomyopathy. 2. Medtronic single-chamber implantable cardioverter-defibrillator. 3. Persistent atrial fibrillation, symptomatic with tiredness, fatigue, shortness of breath. 4. Symptomatic atrial flutter. 5. Status post atrial fibrillation and atrial flutter ablation yesterday. PLAN: Uninterrupted Eliquis for the next 2 months. The patient requires long-term anticoagulation since he has hypertrophic cardiomyopathy. Continue cardiomyopathy medications unchanged. I would like him to go to the device clinic today and get his device rechecked. We will see him again in about a week's time. SHAYY / SANJAYN: [id number] /
== END 2024-06-29 10:45 | disposition home or self-care (01) ==
LOC: CATHEP 07:46 → 6NMEDSUR 13:17 → CATHEP 06-29 10:45
PROVIDERS: ATTEND Internal Medicine Clinical Cardiac Electrophysiology
DX: I48.19 Other persistent atrial fibrillation (principal); I42.2 Other hypertrophic cardiomyopathy; I48.3 Typical atrial flutter; I25.2 Old myocardial infarction; M19.90 Unspecified osteoarthritis, unspecified site; I25.10 Atherosclerotic heart disease of native coronary artery without angina pectoris; I10 Essential (primary) hypertension; E78.5 Hyperlipidemia, unspecified; E11.9 Type 2 diabetes mellitus without complications; Z79.01 Long term (current) use of anticoagulants; Z79.02 Long term (current) use of antithrombotics/antiplatelets; Z79.84 Long term (current) use of oral hypoglycemic drugs; Z86.73 Personal history of transient ischemic attack (TIA), and cerebral infarction without residual deficits; Z87.891 Personal history of nicotine dependence; Z95.5 Presence of coronary angioplasty implant and graft
CPT/HCPCS: 92960; 93655; 93656; 93657; 86900; 86901; 84439; 80053; 84443; 86850; J1644 ×4; J2405; J2003; J0131; Q9967